=== PATIENT | female | born 1950 | race Caucasian/White ===

== ENCOUNTER 2018-05-21 06:24 | Inpatient (IN) ==
[2018-05-21] MEDS ORDERED: Albuterol 2.5 MG/3 ML NEBULIZER IH ONE (06:42)
[2018-05-21 07:13] LABS: Basophils % 0.3 %; Eosinophils # 0.5 K/mcL (0.0-0.6); Eosinophils % 4.3 %; Hematocrit 35.1 % (35.3-44.9); Hemoglobin 10.3 g/dL (11.5-15.4); Immature Granulocytes % 0.8 % (0-4); Lymphocytes # 1.3 K/mcL (0.6-4.6); Lymphocytes % 10.6 %; Mean Corpuscular HGB Conc 29.3 g/dL (31.6-35.5); Mean Corpuscular Hemoglobin 25.6 pg (28.0-33.3); Mean Corpuscular Volume 87.3 fL (83.0-100.0); Monocytes % 8.2 %; Neutrophils # 9.1 K/mcL (1.6-8.9); Platelet Count 312 K/mcL (140-400); Red Blood Count 4.02 M/mcL (3.82-4.97); Red Cell Distribution Width 23.6 % (11.5-14.5); Segmented Neutrophils % 75.8 %
[2018-05-21 07:25] LABS: Calcium 9.7 mg/dL (8.6-10.3); Potassium 3.7 mEq/L (3.5-5.1)
[2018-05-21 07:32] LABS: Troponin I 0.08 ng/mL (< 0.04)
--- NOTE | 2018-05-21 07:42 | Emergency Department Note ---
Disposition Clinical Impression: Acute on chronic renal insufficiency, Acute electrocardiography changes, Elevated troponin Congestive heart failure Qualifiers: Heart failure type: unspecified Heart failure chronicity: acute Qualified Code(s): I50.9 - Heart failure, unspecified Community acquired pneumonia Qualifiers: Laterality: unspecified laterality Qualified Code(s): J18.9 - Pneumonia, unspecified organism Disposition: Admitted As Inpatient Condition: Fair SOB HPI - General Stated Complaint: yoni, pneumonia Time Seen by Provider: 05/21/18 06:33 Source: patient, family Limitations: no limitations Nursing Notes Reviewed: Yes Vital Signs Reviewed: Yes - History of Present Illness 68-year-old female with history of hypertension, CHF, diabetes, bilateral BKA presents from home with her son for evaluation of worsening dyspnea. She was recently diagnosed with ammonia by her primary care provider and was given a prescription for Zithromax. She has taken this for three days, but has not improved. She has mild chest discomfort when she coughs, otherwise, no chest pain. She feels "a little short of breath at rest." She has had recent lower extremity edema. However, states that her doctor gave her Lasix and this is now much better. She denies fever, chills, nausea, vomiting, hemoptysis, syncope, dizziness, headache. Cough is sometimes productive of a "very small amount of clear sputum." Pt Subjective Complaint: shortness of breath, cough Onset (ago): week(s) Context: recent illness Severity: moderate Consistency/Duration: gradually worsening Improves with: nothing Worsens with: coughing Known history of: congestive heart failure, diabetes Associated symptoms: Reports: cough, sputum production. Denies: pain with inspiration, fever, wheezing, orthopnea, lower extremity pain, polyuria, polydipsia, parasthesias, palpitations, hemoptysis, diaphoresis, nausea/vomiting, syncope, abdominal pain, rash, sense of impending doom Treatment prior to arrival: other (abx) Cough present: Yes Cough Description: Voluntary, Involuntary, Productive, Weak Cough Frequency: Intermittent Sputum production: Yes Sputum Amount: Scant Sputum Color: Clear - Related Data Home oxygen amount: none Home Medications Medication Instructions Recorded Confirmed Amitriptyline [Elavil] 25 mg PO HS 05/21/18 05/21/18 Aspirin [Lo-Dose Aspirin EC] 81 mg PO DAILY 05/21/18 05/21/18 Atorvastatin Calcium [Lipitor] 80 mg PO HS 05/21/18 05/21/18 Citalopram [CeleXA] 20 mg PO DAILY 05/21/18 05/21/18 Clopidogrel [Plavix] 75 mg PO DAILY 05/21/18 05/21/18 Collagenase Oint [Santyl] 1 appl TP DAILY 05/21/18 05/21/18 Ergocalciferol (VITAMIN D2) 50,000 unit PO QWEEK 05/21/18 05/21/18 [Vitamin D2] Famotidine [Pepcid] 20 mg PO BID 05/21/18 05/21/18 Ferrous Sulfate [Iron] 325 mg PO DAILY 05/21/18 05/21/18 Furosemide [Lasix] 40 mg PO DAILY 05/21/18 05/21/18 Gabapentin [Neurontin] 300 mg PO DAILY 05/21/18 05/21/18 Gemfibrozil [Lopid] 600 mg PO BIDWM 05/21/18 05/21/18 Gentamicin Oint [Garamycin] 1 appl TP DAILY 05/21/18 05/21/18 Insulin ASPART [NovoLOG] 20 unit SQ TIDWM MDD PER SLIDING 05/21/18 05/21/18 SCALE Insulin Glargine,Hum.rec.anlog 80 unit SQ DAILY 05/21/18 05/21/18 [Basaglar Kwikpen U-100] Linagliptin [Tradjenta] 5 mg PO DAILY 05/21/18 05/21/18 Metoprolol [Lopressor] 100 mg PO BID 05/21/18 05/21/18 Potassium Chloride [K-Tab ER] 10 meq PO BID 05/21/18 05/21/18 levoFLOXacin [Levaquin] 250 mg PO DAILY 05/21/18 05/21/18 Allergies Allergy/AdvReac Type Severity Reaction Status Date / Time Sulfa (Sulfonamide Allergy Unknown Unknown Verified 05/14/15 18:03 Antibiotics) acetaminophen [From Tylenol] Allergy Chest Pain Verified 05/14/15 18:03 codeine Allergy Chest Pain Verified 04/15/15 09:57 All systems ED: reviewed and negative except as stated. Review of Systems: As Per HPI Constitutional: Denies: fever, chills, weakness, weight change, night sweats Eyes: Denies: vision change ENT ED: Denies: ear pain, throat pain, congestion, dysphagia Cardiovascular: Reports: as per HPI, chest pain ("Only when coughing."). Denies: palpitations, dyspnea on exertion, orthopnea, edema, syncope Respiratory: Reports: as per HPI, cough, dyspnea, sputum production. Denies: wheezes, hemoptysis, stridor Gastrointestinal: Denies: abdominal pain, nausea, vomiting, diarrhea, constipation Genitourinary: Denies: dysuria Musculoskeletal: Denies: back pain, neck pain, joint swelling, arthralgia Integumentary: Denies: rash Neurological: Denies: headache, weakness, numbness, paresthesias, confusion, vertigo Psychiatric: Denies: anxiety Endocrine: Denies: fatigue Hematological/Lymphatic: Denies: easy bleeding, easy bruising, lymphadenopathy Past Medical History - Past Medical History Attestation: Yes The following information was validated with the patient. Source: patient Medical history: Reports: asthma, CHF, coronary artery disease, diabetes, GERD, hyperlipidemia, hypertension, renal disease Surgical history: Reports: carotid endarterectomy, coronary bypass (CABG), orthopedic, other, other (Is) Psychiatric history: Reports: depression [employer] OPERATOR history: Reports: no [employer] OPERATOR history - Social History Smoking Status: Never smoker Smokeless Tobacco Status: No Alcohol use: Reports: none Drug use: Reports: none Physical Exam - General Limitations: no limitations General appearance: alert, in no apparent distress - Head Head exam: atraumatic, normocephalic, normal inspection - Eye Eye exam: Present: normal appearance. Absent: scleral icterus, conjunctival injection, periorbital swelling - ENT ENT exam: mucous membranes dry ( is worseas per ) - Neck Neck exam: Present: normal inspection (Assessment and I am unable to see the microscopic analysis of UA.) - Respiratory Respiratory exam: Present: wheezes (faint end expiratory). Absent: respiratory distress, stridor - Cardiovascular Cardiovascular exam: Present: regular rate, normal rhythm (Any secondhand) - Abdominal Exam Abdominal exam: Present: soft, Non-Tender. Absent: distention, guarding, rigidity, mass - Extremities Exam Extremities exam: Present: normal capillary refill, other (Bilateral BKA - no edema noted - wound with clean dry dressing on left stump). Absent: joint swelling - Expanded Lower Extremity Exam Hip/Pelvis exam: Present: full ROM Upper leg exam: Present: normal inspection. Absent: tenderness Knee exam: Present: normal inspection, full ROM. Absent: tenderness, swelling Lower leg exam: Present: tenderness (left stump - mild). Absent: swelling, ecchymosis, deformity, erythema Neurovascular/Tendon exam: Present: normal capillary refill. Absent: motor deficit, sensory deficit, extremity cold to touch, pallor - Back Exam Back exam: Present: normal inspection. Absent: tenderness - Neurological Exam Neurological exam: Present: alert, oriented X3, CN II-XII intact - Psychiatric Psychiatric exam: Present: normal affect, normal mood - Skin Skin exam: Present: warm, dry, intact, normal color Course Vital Signs Temperature 97.7 F 05/21/18 06:32 Pulse Rate 80 05/21/18 06:32 Respiratory Rate 18 05/21/18 06:32 Blood Pressure 131/82 05/21/18 06:32 O2 Sat by Pulse Oximetry 93 05/21/18 06:32 Temperature 97.7 F 05/21/18 06:32 Pulse Rate 80 05/21/18 06:32 Respiratory Rate 16 05/21/18 06:59 Blood Pressure 131/82 05/21/18 06:32 O2 Sat by Pulse Oximetry 98 05/21/18 07:12 Oxygen Delivery Oxygen Delivery Room Air Shortness of Breath/Dyspnea - Medical Records Medical records reviewed: Yes I reviewed the patient's medical records. - Lab Data Lab results reviewed: Yes I reviewed the patient's lab results. Lab results narrative: Laboratory Last Values WBC 12.0 K/mcL (4.3-11.1) H 05/21/18 06:35 RBC 4.02 M/mcL (3.82-4.97) 05/21/18 06:35 Hgb 10.3 g/dL (11.5-15.4) L 05/21/18 06:35 Hct 35.1 % (35.3-44.9) L 05/21/18 06:35 MCV 87.3 fL (83.0-100.0) 05/21/18 06:35 MCH 25.6 pg (28.0-33.3) L 05/21/18 06:35 MCHC 29.3 g/dL (31.6-35.5) L 05/21/18 06:35 RDW 23.6 % (11.5-14.5) H 05/21/18 06:35 Plt Count 312 K/mcL (140-400) 05/21/18 06:35 MPV 9.0 fL (9.4-12.4) L 05/21/18 06:35 Immature Gran % 0.8 % (0-4) 05/21/18 06:35 Seg Neutrophils % 75.8 % 05/21/18 06:35 Lymphocytes % 10.6 % 05/21/18 06:35 Monocytes % 8.2 % 05/21/18 06:35 Eosinophils % 4.3 % 05/21/18 06:35 Basophils % 0.3 % 05/21/18 06:35 Neutrophils # 9.1 K/mcL (1.6-8.9) H 05/21/18 06:35 Lymphocytes # 1.3 K/mcL (0.6-4.6) 05/21/18 06:35 Monocytes # 1.0 K/mcL (0.0-1.3) 05/21/18 06:35 Eosinophils # 0.5 K/mcL (0.0-0.6) 05/21/18 06:35 Basophils # 0.0 K/mcL (0.0-0.2) 05/21/18 06:35 Platelet Estimate Normal (Normal) 05/21/18 06:35 Poikilocytosis 1+ (Not Present) A 05/21/18 06:35 Anisocytosis 2+ (Not Present) A 05/21/18 06:35 Sodium 140 mEq/L (136-145) 05/21/18 06:35 Potassium 3.7 mEq/L (3.5-5.1) 05/21/18 06:35 Chloride 105 mEq/L (98-107) 05/21/18 06:35 Carbon Dioxide 25 mEq/L (23-29) 05/21/18 06:35 BUN 31 mg/dL (8-23) H 05/21/18 06:35 Creatinine 1.75 mg/dL (0.60-1.20) H 05/21/18 06:35 Est GFR ( Amer) 35 (> 60) L 05/21/18 06:35 Est GFR (Non-Af Amer) 29 (> 60) L 10/31/18 06:35 BUN/Creatinine Ratio 18 (6-26) 05/21/18 06:35 Glucose 121 mg/dL (70-105) H 05/21/18 06:35 Calculated Osmolality 298 (280-300) 05/21/18 06:35 Lactic Acid 1.0 mmol/L (0.5-2.2) 05/21/18 06:35 Calcium 9.7 mg/dL (8.6-10.3) 05/21/18 06:35 Troponin I 0.08 ng/mL (< 0.04) H* 05/21/18 06:35 B-Natriuretic Peptide 2738 pg/mL (Less than 100) H 05/21/18 06:35 Result diagrams: 05/21/18 06:35 05/21/18 06:35 Lab Results 05/21/18 05/21/18 05/21/18 Range/Units 06:35 06:35 06:35 WBC 12.0 H (4.3-11.1) K/mcL RBC 4.02 (3.82-4.97) M/mcL Hgb 10.3 L (11.5-15.4) g/dL Hct 35.1 L (35.3-44.9) % MCV 87.3 (83.0-100.0) fL MCH 25.6 L (28.0-33.3) pg MCHC 29.3 L (31.6-35.5) g/dL RDW 23.6 H (11.5-14.5) % Plt Count 312 (140-400) K/mcL MPV 9.0 L (9.4-12.4) fL Immature Gran % 0.8 (0-4) % Seg Neutrophils % 75.8 % Lymphocytes % 10.6 % Monocytes % 8.2 % Eosinophils % 4.3 % Basophils % 0.3 % Neutrophils # 9.1 H (1.6-8.9) K/mcL Lymphocytes # 1.3 (0.6-4.6) K/mcL Monocytes # 1.0 (0.0-1.3) K/mcL Eosinophils # 0.5 (0.0-0.6) K/mcL Basophils # 0.0 (0.0-0.2) K/mcL Platelet Estimate Normal (Normal) Poikilocytosis 1+ A (Not Present) Anisocytosis 2+ A (Not Present) Sodium 140 (136-145) mEq/L Potassium 3.7 (3.5-5.1) mEq/L Chloride 105 (98-107) mEq/L Carbon Dioxide 25 (23-29) mEq/L BUN 31 H (8-23) mg/dL Creatinine 1.75 H (0.60-1.20) mg/dL Est GFR ( Amer) 35 L (> 60) Est GFR (Non-Af Amer) 29 L (> 60) BUN/Creatinine Ratio 18 (6-26) Glucose 121 H (70-105) mg/dL Calculated Osmolality 298 (280-300) Lactic Acid 1.0 (0.5-2.2) mmol/L Calcium 9.7 (8.6-10.3) mg/dL Troponin I 0.08 H* (< 0.04) ng/mL B-Natriuretic Peptide (Less than 100) pg/mL 05/21/18 Range/Units 06:35 WBC (4.3-11.1) K/mcL RBC (3.82-4.97) M/mcL Hgb (11.5-15.4) g/dL Hct (35.3-44.9) % MCV (83.0-100.0) fL MCH (28.0-33.3) pg MCHC (31.6-35.5) g/dL RDW (11.5-14.5) % Plt Count (140-400) K/mcL MPV (9.4-12.4) fL Immature Gran % (0-4) % Seg Neutrophils % % Lymphocytes % % Monocytes % % Eosinophils % % Basophils % % Neutrophils # (1.6-8.9) K/mcL Lymphocytes # (0.6-4.6) K/mcL Monocytes # (0.0-1.3) K/mcL Eosinophils # (0.0-0.6) K/mcL Basophils # (0.0-0.2) K/mcL Platelet Estimate (Normal) Poikilocytosis (Not Present) Anisocytosis (Not Present) Sodium (136-145) mEq/L Potassium (3.5-5.1) mEq/L Chloride (98-107) mEq/L Carbon Dioxide (23-29) mEq/L BUN (8-23) mg/dL Creatinine (0.60-1.20) mg/dL Est GFR ( Amer) (> 60) Est GFR (Non-Af Amer) (> 60) BUN/Creatinine Ratio (6-26) Glucose (70-105) mg/dL Calculated Osmolality (280-300) Lactic Acid (0.5-2.2) mmol/L Calcium (8.6-10.3) mg/dL Troponin I (< 0.04) ng/mL B-Natriuretic Peptide 2738 H (Less than 100) pg/mL - Radiology Data Radiology results reviewed: Yes I reviewed the patient's radiology results. Chest X-Ray 05/21/18 06:35 IMPRESSION: Mild streaky bibasilar opacities along with slight blunting of left costophrenic angle concerning for mild bibasilar atelectasis or infiltrates along with small left pleural effusion. Cardiomegaly. D/ : / 05/21/2018 08:40:59 Alok Colorado MD / kera Interpreting Provider: Alok Colorado MD - EKG Data EKG attestation: Yes I reviewed and interpreted this EKG. EKG shows normal: Reports: sinus rhythm Rate: Reports: normal Rhythm: Reports: NSR [place]/QRS: Reports: IVCD T wave inversions noted in: Reports: I, II, aVL, v4, v5, v6 When compared to previous EKG there are: changes noted Interpretation: Reports: nonspecific ST-T wave changes Attestation Statement - Attestation Attestation: I, [place] Andrea, examined this patient and my medical decision-making was reviewed with the [employer]/PA/Advanced Practice Nurse/Resident Physician. I agree with the documented findings, disposition and treatment plan as described except to the extent set forth below. 68-year-old female presents emergency Department with concerns of cough and shortness of breath. Patient states she was recently diagnosed with pneumonia and has been taking his erythromycin at home without improvement of her symptoms. She does have a cough that is nonproductive. She denies fever, chills, nausea, vomiting, chest pain. Patient has a history of congestive heart failure and takes Lasix as needed. She has been increasing her usage of Lasix over the past week. On evaluation emergency Department she has crackles in the bilateral lower lobes posteriorly. Chest x-ray shows venous congestion, atelectasis versus infiltrate. She has mildly elevated white blood cell count. She is afebrile emergency department. Likely the patient's symptoms are secondary to congestive heart failure with BNP greater than 2000 however it is difficult to rule out pneumonia as she is currently taking antibiotics. Patient will be admitted to the hospitalist for further care and evaluation.
[2018-05-21 08:14] LABS: Anisocytosis 2+ (Not Present); Platelet Estimate Normal (Normal)
[2018-05-21 08:16] LABS: Poikilocytosis 1+ (Not Present)
[2018-05-21] MEDS ORDERED: Furosemide 40 MG/4 ML VIAL IVP ONE (08:38)
[2018-05-21 08:57] LABS: Bilirubin,Urine Negative (Negative); Blood,Urine Small (Negative); Clarity,Urine Clear (Clear); Color,Urine Yellow (Yellow); Glucose,Urine (UA) Normal (Normal); Ketones,Urine Negative (Negative); Leukocyte Esterase,Urine Negative (Negative); Nitrite,Urine Negative (Negative); Protein,Urine 100 mg/dL (Neg-Trace); Specific Gravity,Urine 1.015 (1.010-1.025); Urobilinogen,Urine Normal (Normal)
[2018-05-21 09:00] LABS: Bacteria,Urine None Seen per hpf (None-Few); Hyaline Casts,Urine None Seen per lpf (None-Few); RBC,Urine 0-3 per hpf (0-3); Squamous Epithelial Cell,Urine Many per lpf (None-Few); WBC,Urine 0-3 per hpf (0-3)
[2018-05-21] MEDS ORDERED: Azithromycin 500 MG in D5% in Water 250 ML IVPB ONE (09:46)
[2018-05-21] MEDS ORDERED: cefTRIAXone 1,000 MG in 0.9 % Sodium Chloride Mini Bag 100 ML IVPB ONE (09:46)
[2018-05-21] MEDS ORDERED: Aspirin 325 MG TABLET PO ONE (09:50)
[2018-05-21] MEDS ORDERED: cefTRIAXone 1,000 MG in Water for inj. (sterile) 20 ML 10 ML IVP ONE (11:00)
[2018-05-21] MEDS ORDERED: Naloxone 0.4 MG/ML INJ IVP PRN (11:23)
--- NOTE | 2018-05-21 11:34 | Internal Med History&Physical ---
Date of Encounter: 05/21/18 Time of Encounter: 11:31 Internal Medicine - H&P: HPI Chief complaint: shortness of breath and cough Admitted From: Home Plans for Post Hospital Care: Home History of present illness: Ms. Barba is a 68 year old female with past medical history of hypertension, CHF, diabetes, bilateral BKA, coronary artery disease status post CABG, nephrectomy, CKD, came in with complain of shortness of breath for past 2-3 days ongoing for about a week. History was obtained from patient, ER physician and patient's son. Patient was diagnosed to have pneumonia by PCP and was started on antibiotic treatment which patient has not completed yet. Given her shortness of breath and cough did not result patient decided to come to the ER. Patient was also started on Lasix for lower extremity swelling which has improved as per patient. Patient denies any fevers, chills, nausea, constipation, diarrhea, lightheadedness, dizziness, headache, urinary complaints. Her cough is mainly water bothering her associated minimal expectoration. Denies any chest pain back pain abdominal pain. Minimal chest discomfort associated with coughing. On interview patient cooperated well mentioned history. In no distress. Breathing has improved significantly. Saturating well on 2 L nasal cannula. Denies any chest pain or abdominal pain. Patient was started on ceftriaxone and azithromycin for pneumonia and received 1 dose of Lasix in ER. Patient had mild elevated troponin and admission was requested for CHF. Past Med Surg Social Fam HX - Past Medical History Medical history: asthma, CHF, coronary artery disease, diabetes, GERD, hyperl ipidemia, hypertension, renal disease Psychiatric history: depression - Past Surgical History Surgical History: carotid endarterectomy, coronary bypass (CABG), orthopedic, other, other (Is) Additional surgical history: b/l bka, cardiac cath - Social History Smoking Status: Never smoker Smokeless Tobacco Status: No Alcohol use: none Drug use: none - Family History Mother Hx Family Cardiac Disorders: Yes (heart disease) - Additional Family History Additional family history: Father had DC at unknown age, Mother did not have significant medical problems. Internal Medicine - H&P: Meds Amitriptyline [Elavil] 25 mg PO HS 05/21/18 [History] Aspirin [Lo-Dose Aspirin EC] 81 mg PO DAILY 05/21/18 [History] Atorvastatin Calcium [Lipitor] 80 mg PO HS 05/21/18 [History] Citalopram [CeleXA] 20 mg PO DAILY 05/21/18 [History] Clopidogrel [Plavix] 75 mg PO DAILY 05/21/18 [History] Collagenase Oint [Santyl] 1 appl TP DAILY 05/21/18 [History] Ergocalciferol (VITAMIN D2) [Vitamin D2] 50,000 unit PO QWEEK 05/21/18 [History] Famotidine [Pepcid] 20 mg PO BID 05/21/18 [History] Ferrous Sulfate [Iron] 325 mg PO DAILY 05/21/18 [History] Furosemide [Lasix] 40 mg PO DAILY 05/21/18 [History] Gabapentin [Neurontin] 300 mg PO DAILY 05/21/18 [History] Gemfibrozil [Lopid] 600 mg PO BIDWM 05/21/18 [History] Gentamicin Oint [Garamycin] 1 appl TP DAILY 05/21/18 [History] Insulin ASPART [NovoLOG] 20 unit SQ TIDWM MDD PER SLIDING SCALE 05/21/18 [History] Insulin Glargine,Hum.rec.anlog [Basaglar Kwikpen U-100] 80 unit SQ DAILY 05/21/18 [History] Linagliptin [Tradjenta] 5 mg PO DAILY 05/21/18 [History] Metoprolol [Lopressor] 100 mg PO BID 05/21/18 [History] Potassium Chloride [K-Tab ER] 10 meq PO BID 05/21/18 [History] levoFLOXacin [Levaquin] 250 mg PO DAILY 05/21/18 [History] Allergy/AdvReac Type Severity Reaction Status Date / Time Sulfa (Sulfonamide Allergy Unknown Unknown Verified 05/14/15 18:03 Antibiotics) acetaminophen [From Tylenol] Allergy Chest Pain Verified 05/14/15 18:03 codeine Allergy Chest Pain Verified 04/15/15 09:57 All Systems PM: A 10-system review of systems was performed and is negative for pertinent findings except as documented above in the HPI. - Constitutional Vitals: Temp Pulse Resp BP Pulse Ox 97.7 F 79 18 132/66 95 05/21/18 06:32 05/21/18 10:32 05/21/18 10:32 05/21/18 10:00 05/21/18 10:32 General appearance: Present: A&O X 3, no acute distress Exam: Constitutional: Vitals as noted. Conversant. No Apparent Distress. Eyes : Sclera white, conjunctiva clear, no lid lag, PEAR[place]. ENT : Grossly normal hearing. Oropharyngeal exam unremarkable. Moist mucus membranes. Respiratory : Bibasilar crackles. No accessory muscle use, rales, rhonchi or wheezes Cardiovascular : RRR, +S1, +S2. no murmur, gallop, rubs. No chest wall tenderness. !+ pedal edema GI/Abdominal : Soft, Non-tender, Non-distended, normal bowel sounds, soft, no peritoneal signs. no orgenomegaly or mass appreciated. no hernia. Musculoskeletal: bilateral BKA Neurological: AO X3, CN II-XII grossly intact, grossly normal motor and sensory exam. Skin: Ulcer noted 1x1cm clean base on Lt stump Internal Med - H&P Results - Labs CBC & Chem 7: 05/21/18 06:35 05/21/18 06:35 Labs: Short CBC 05/21/18 Range/Units 06:35 WBC 12.0 H (4.3-11.1) K/mcL Hgb 10.3 L (11.5-15.4) g/dL Hct 35.1 L (35.3-44.9) % Plt Count 312 (140-400) K/mcL Neutrophils # 9.1 H (1.6-8.9) K/mcL BMP 05/21/18 06:35 Sodium 140 Potassium 3.7 Chloride 105 Carbon Dioxide 25 BUN 31 H Creatinine 1.75 H Glucose 121 H Calcium 9.7 Cardiac Enzymes 05/21/18 Range/Units 06:35 Troponin I 0.08 H* (< 0.04) ng/mL Urine 05/21/18 Range/Units 07:57 Urine Color Yellow (Yellow) Urine Clarity Clear (Clear) Urine pH 6.0 (5.0-8.0) pH Units Ur Specific [place] 1.015 (1.010-1.025) Urine Protein 100 H (Neg-Trace) mg/dL Urine Glucose (UA) Normal (Normal) mg/dL - Impressions ITS Impressions Chest X-Ray 05/21/18 06:35 IMPRESSION: Mild streaky bibasilar opacities along with slight blunting of left costophrenic angle concerning for mild bibasilar atelectasis or infiltrates along with small left pleural effusion. Cardiomegaly. D/ / 05/21/2018 08:40:59 Alok Colorado MD / kera Interpreting Provider: Alok Colorado MD - Assessment and plan (1) CHF exacerbation Current Visit: Yes Status: Acute Assessment and plan: - Continue home aspirin, statin, beta joy - Unclear reason for exacerbation - We will continue diuresis with Lasix 40 daily - Measure ins and outs and weights daily. - No echocardiogram report available. Unknown when had last echocardiogram - Follow-up echocardiogram Qualifiers: Qualified Code(s): I50.9 - Heart failure, unspecified (2) Elevated troponin I level Current Visit: Yes Status: Acute Assessment and plan: - Possibly related to CHF exacerbation along with her renal function - EKG with ST depression in lead 2 and T-wave inversion in lead 2, aVF, V4 and V5. IVCD was noted. Last EKG from 2014 without check changes. - Patient without chest pain. - We will trend troponin and opted echocardiogram (3) Anemia Current Visit: Yes Status: Acute Assessment and plan: - Last hemoglobin of 13 from 2016. Currently 10 - Patient on iron supplementation for possible iron deficiency anemia and CK 80 - Without any obvious signs of GI bleed - Obtain iron panel, stool occult - Does not appear to be acute drop. - We will monitor for now Qualifiers: Anemia type: unspecified type Qualified Code(s): D64.9 - Anemia, unspecified (4) CKD (chronic kidney disease) stage 3, GFR 30-59 ml/min Current Visit: No Status: Acute Assessment and plan: - Minimally worsened compared to baseline - Possibly from CHF - Continue diuresis and monitor (5) Diabetes Current Visit: No Status: Acute Assessment and plan: - Accu-Cheks before meals at bedtime and sliding scale insulin - We will decrease the dose of long-acting insulin. We will use Levemir 40 at bedtime. We will adjust based on sugar readings. Qualifiers: Diabetes mellitus type: type 2 Diabetes mellitus complication status: with circulatory complication Diabetes mellitus complication detail: with other circulatory complications Qualified Code(s): E11.59 - Type 2 diabetes mellitus with other circulatory complications; Z79.4 - halfway (current) use of insulin (6) Shortness of breath Current Visit: Yes Status: Acute Assessment and plan: - Appears to be more related to CHF - Minimal elevated white count - We will finish short course of ceftriaxone and Zithromax for possible pneumonia. - Time Spent With Patient Total time spent is greater than 50% in coordination of care (as documented) at patient's floor/unit and/or counseling patient:
[2018-05-21] MEDS ORDERED: D5% in Water 1,000 ML IVC PRN (12:25)
[2018-05-21] MEDS ORDERED: *HR* Dextrose 50 % in Water (Syg) 50 ML SYRINGE IVP PRN (12:25)
[2018-05-21] MEDS ORDERED: Dextrose Gel 15 GM/37.5 ML TUBE PO PRN ×2 (12:25)
[2018-05-21] MEDS: Cholecalciferol (D-3) 1,000 UNIT TABLET PO SCH (16:27)
[2018-05-21] MEDS ORDERED: Famotidine 20 MG TABLET PO SCH (16:30)
[2018-05-21] MEDS: Famotidine 20 MG TABLET PO SCH (17:07)
[2018-05-21] MEDS: Insulin LISPRO 300 UNITS/3 ML VIAL SQ SCH (17:09)
[2018-05-21 17:27] LABS: Basophils % 0.3 %; Eosinophils # 0.5 K/mcL (0.0-0.6); Eosinophils % 5.1 %; Hematocrit 34.5 % (35.3-44.9); Hemoglobin 10.3 g/dL (11.5-15.4); Immature Granulocytes % 0.9 % (0-4); Lymphocytes # 1.1 K/mcL (0.6-4.6); Lymphocytes % 11.5 %; Mean Corpuscular HGB Conc 29.9 g/dL (31.6-35.5); Mean Corpuscular Hemoglobin 25.7 pg (28.0-33.3); Mean Platelet Volume 8.8 fL (9.4-12.4); Monocytes # 0.8 K/mcL (0.0-1.3); Monocytes % 8.4 %; Neutrophils # 6.8 K/mcL (1.6-8.9); Platelet Count 280 K/mcL (140-400); Red Blood Count 4.01 M/mcL (3.82-4.97); Red Cell Distribution Width 23.1 % (11.5-14.5); Segmented Neutrophils % 73.8 %
[2018-05-21 18:04] LABS: Anisocytosis 2+ (Not Present); Platelet Estimate Normal (Normal); Polychromasia 1+ (Not Present)
[2018-05-21] MEDS: Insulin DETEMIR 100 UNIT/ML X5UNITS SQ SCH (21:15)
[2018-05-21] MEDS: Metoprolol 100 MG TABLET PO SCH (21:15)
[2018-05-21] MEDS: Gentamicin Oint 15 GM TUBE TP SCH (21:16)
[2018-05-22 05:24] LABS: Calcium 9.2 mg/dL (8.6-10.3); Potassium 3.6 mEq/L (3.5-5.1)
[2018-05-22 05:25] LABS: % Iron Saturation 7 % (15-50); Iron 28 mcg/dL (50-170); Transferrin 297 mg/dL (203-362)
[2018-05-22 05:43] LABS: Ferritin 31 ng/mL (10-120)
[2018-05-22] MEDS: Cholecalciferol (D-3) 1,000 UNIT TABLET PO SCH (08:44)
[2018-05-22] MEDS: Metoprolol 100 MG TABLET PO SCH ×2 (08:44→20:29)
[2018-05-22] MEDS: Famotidine 20 MG TABLET PO SCH ×2 (08:45→18:02)
[2018-05-22] MEDS: Aspirin Enteric Coated 81 MG Tablet PO SCH (08:45)
[2018-05-22] MEDS: Furosemide 40 MG/4 ML VIAL IVP SCH (08:45)
[2018-05-22] MEDS: Gabapentin 300 MG CAPSULE PO SCH (08:45)
[2018-05-22] MEDS: Insulin LISPRO 300 UNITS/3 ML VIAL SQ SCH ×3 (09:24→18:02)
--- NOTE | 2018-05-22 09:43 | Internal Med Progress Note ---
Hospitalist Progress Note - Encounter Date of Encounter: 05/22/18 Time of Encounter: 09:42 - Subjective Interval History: Patient seen and examined this morning. No acute overnight events. Breathing improved. Denies cp, abdominal pain, back pain, bowel or urinary complains. No fever, chills, Diarrhea. - Exam Vitals: Temp Pulse Resp BP Pulse Ox 98.2 F 75 20 127/69 95 05/22/18 02:30 05/22/18 08:41 05/22/18 08:41 05/22/18 08:41 05/22/18 08:41 Exam: Constitutional: Vitals as noted. Conversant. No Apparent Distress. Eyes : Sclera white, conjunctiva clear, no lid lag, PEARLA. ENT : Grossly normal hearing. Oropharyngeal exam unremarkable. Moist mucus membranes. Respiratory : Bibasilar crackles. No accessory muscle use, rales, rhonchi or wheezes Cardiovascular : RRR, +S1, +S2. no murmur, gallop, rubs. No chest wall tenderness. 1+ pedal edema GI/Abdominal : Soft, Non-tender, Non-distended, normal bowel sounds, soft, no peritoneal signs. no orgenomegaly or mass appreciated. no hernia. Musculoskeletal: bilateral BKA Neurological: AO X3, CN II-XII grossly intact, grossly normal motor and sensory exam. Skin: Ulcer noted 1x1cm clean base on Lt stump - Assessment and Plan (1) CHF exacerbation Current Visit: Yes Status: Acute (2) Elevated troponin I level Current Visit: Yes Status: Acute (3) Anemia Current Visit: Yes Status: Acute (4) CKD (chronic kidney disease) stage 3, GFR 30-59 ml/min Current Visit: No Status: Acute (5) Diabetes Current Visit: No Status: Acute (6) Shortness of breath Current Visit: Yes Status: Acute - Summary of Assessment and Plan Summary of Assessment and Plan: Shortness of breath - Appears to be more related to CHF - Minimal elevated white count on admission - We will finish short course of ceftriaxone and Zithromax for possible pneumonia which was started outpaient CHF exacerbation - Continue home aspirin, statin, beta joy - c/w diuresis with Lasix 40 daily - I/O not charted appropriately - Follow-up echocardiogram Elevated troponin I level with abnormal EKG - Possibly related to CHF exacerbation along with her renal function - EKG with ST depression in lead 2 and T-wave inversion in lead 2, aVF, V4 and V5. IVCD was noted. Last EKG from 2014 without check changes. - troponin from 0.08 to 0.18 today. Patient without chest pain. - f/u echocardiogram - Will consult cardiology Anemia - Iron panel consistent with Iron deficiency - Possible combination with CKD - f/u stool occult - Monitor for now - c/w iron supplementation CKD - Minimally worsened on admission compared to baseline - Possibly from CHF - Improved with diuresis. Diabetes - Accu-Cheks before meals at bedtime and sliding scale insulin - Well controlled on current regimen. continue same - Time Spent with Patient Total time spent is greater than 50% in coordination of care (as documented) at patient's floor/unit and/or counseling patient: Internal Medicine: Result - Labs CBC & Chem 7: 05/21/18 17:14 05/22/18 04:37 Labs: Short CBC 05/21/18 Range/Units 17:14 WBC 9.2 (4.3-11.1) K/mcL Hgb 10.3 L (11.5-15.4) g/dL Hct 34.5 L (35.3-44.9) % Plt Count 280 (140-400) K/mcL Neutrophils # 6.8 (1.6-8.9) K/mcL BMP 05/22/18 04:37 Sodium 143 Potassium 3.6 Chloride 108 H Carbon Dioxide 21 L BUN 26 H Creatinine 1.56 H Glucose 131 H Calcium 9.2 Cardiac Enzymes 05/21/18 05/22/18 Range/Units 17:14 04:37 Troponin I 0.06 H* 0.18 H* (< 0.04) ng/mL - Impressions Impressions Chest X-Ray 05/21/18 06:35 IMPRESSION: Mild streaky bibasilar opacities along with slight blunting of left costophrenic angle concerning for mild bibasilar atelectasis or infiltrates along with small left pleural effusion. Cardiomegaly. D/ / 05/21/2018 08:40:59 Alok Colorado MD / kera Interpreting Provider: Alok Colorado MD Consult Discharge Plan - Plan Referrals: Rowdy Kramer MD [Primary Care Provider] - _ (1) CHF exacerbation Qualifiers: Qualified Code(s): I50.9 - Heart failure, unspecified (3) Anemia Qualifiers: Anemia type: unspecified type Qualified Code(s): D64.9 - Anemia, unspecified (5) Diabetes Qualifiers: Diabetes mellitus type: type 2 Diabetes mellitus complication status: with circulatory complication Diabetes mellitus complication detail: with other circulatory complications Qualified Code(s): E11.59 - Type 2 diabetes mellitus with other circulatory complications; Z79.4 - halfway (current) use of insulin
[2018-05-22] MEDS: Gentamicin Oint 15 GM TUBE TP SCH (12:34)
--- NOTE | 2018-05-22 14:33 | Cardiology Consult Note ---
<Laura Stuart - Last Filed: 05/22/18 15:00> Date of Encounter: 05/22/18 Time of Encounter: 14:15 Assessment and Plan (1) Elevated troponin I level Current Visit: Yes Status: Acute Elevated troponin in the setting of CAP, CKD. NSTEMI type I vs type II, presentation is not consistent with ACS. Troponin peak 0.27, recheck in AM to ensure downward trend. ECG is similar to prior ([facility] records ). No chest pain reported. TTE demonstrated preserved LVEF, 50% with moderate RV hypokinesis. Hx of CAD s/p CABG s/p PCI, patient reports last PCI ~2 years ago at [facility]. Denies angina. Discussed mgmt options including possible LHC once CAP resolves, however due to increased risk of GIULIANO (CKD, hx of nephrectomy) and lack of chest pain, she declines and elects to proceed with medical therapy. Continue asa, statin, plavix, and BB. Also discussed possible outpatient stress test, however patient declines. No further inpatient testing, will coordinate outpatient follow-up. (2) Coronary artery disease Current Visit: Yes Status: Acute Plan as above. Continue medical therapy including asa, statin, BB, and plavix. Qualifiers: Coronary Disease-Associated Artery/Lesion type: [place] artery [place] vs. transplanted heart: [place] heart Associated angina: without angina Qualified Code(s): I25.10 - Atherosclerotic heart disease of [place] coronary artery without angina pectoris (3) Community acquired pneumonia Current Visit: Yes Status: Acute Mgmt per primary service. Failed outpatient medical therapy. Qualifiers: Laterality: unspecified laterality Qualified Code(s): J18.9 - Pneumonia, unspecified organism Discussion w patient/family: The assessment and plan as outlined above was discussed with the patient and/or family members who expressed understanding and agreement. All questions were answered. Thank you for involving us in the care of your patient. Please call with any questions. The patient will be discussed and reviewed with Dr. Hyatt; changes to be made accordingly. History of Present Illness Consult date: 05/22/18 Requesting physician: David Huang Consult reason: Elevated troponin, abnormal ECG Chief complaint: Shortness of breath History of present illness: Ms. Barba is a 68 year old female with PMHx significant of HTN, dCHF, bilateral BKA's, DMII, nephrectomy, CKD, and CAD s/p CABG s/p PCI who presented to the ED with complaints of worsening shortness of breath, difficulty breathing, and non-productive cough over the past 1-2 weeks. Associated symptoms include bilateral stump edema, which has now resolved. Reports was diagnosed with PNA on CXR by PCP last week and was started on oral antibiotics. Symptoms c ontinued to worsen therefore she went to the ED for further evaluation. She denies cough, fever, or chills. No chest pain/discomfort reported. Denies angina. Cardiology consulted for elevated troponin, 0.06, 0.18, 0.27 and abnormal ECG. Past Med Surg Social Fam HX - Past Medical History Attestation: Yes The following information was validated with the patient. Source: patient Medical history: asthma, CHF, coronary artery disease, diabetes, GERD, hyperlipidemia, hypertension, renal disease Psychiatric history: depression - Past Surgical History Surgical History: carotid endarterectomy, coronary bypass (CABG), orthopedic, other, other (Is) Additional surgical history: b/l bka, cardiac cath - Social History Smoking Status: Never smoker Smokeless Tobacco Status: No Alcohol use: none Drug use: none - Family History Mother Hx Family Cardiac Disorders: Yes (heart disease) Medications and Allergies Amitriptyline [Elavil] 25 mg PO HS 05/21/18 [History] Aspirin [Lo-Dose Aspirin EC] 81 mg PO DAILY 05/21/18 [History] Atorvastatin Calcium [Lipitor] 80 mg PO HS 05/21/18 [History] Citalopram [CeleXA] 20 mg PO DAILY 05/21/18 [History] Clopidogrel [Plavix] 75 mg PO DAILY 05/21/18 [History] Collagenase Oint [Santyl] 1 appl TP DAILY 05/21/18 [History] Ergocalciferol (VITAMIN D2) [Vitamin D2] 50,000 unit PO QWEEK 05/21/18 [History] Famotidine [Pepcid] 20 mg PO BID 05/21/18 [History] Ferrous Sulfate [Iron] 325 mg PO DAILY 05/21/18 [History] Furosemide [Lasix] 40 mg PO DAILY 05/21/18 [History] Gabapentin [Neurontin] 300 mg PO DAILY 05/21/18 [History] Gemfibrozil [Lopid] 600 mg PO BIDWM 05/21/18 [History] Gentamicin Oint [Garamycin] 1 appl TP DAILY 05/21/18 [History] Insulin ASPART [NovoLOG] 20 unit SQ TIDWM MDD PER SLIDING SCALE 05/21/18 [History] Insulin Glargine,Hum.rec.anlog [Basaglar Kwikpen U-100] 80 unit SQ DAILY 05/21/18 [History] Linagliptin [Tradjenta] 5 mg PO DAILY 05/21/18 [History] Metoprolol [Lopressor] 100 mg PO BID 05/21/18 [History] Potassium Chloride [K-Tab ER] 10 meq PO BID 05/21/18 [History] levoFLOXacin [Levaquin] 250 mg PO DAILY 05/21/18 [History] Allergy/AdvReac Type Severity Reaction Status Date / Time Sulfa (Sulfonamide Allergy Unknown Unknown Verified 05/14/15 18:03 Antibiotics) acetaminophen [From Tylenol] Allergy Chest Pain Verified 05/22/18 11:46 codeine Allergy Chest Pain Verified 04/15/15 09:57 All Systems Review: The remainder of the systems were reviewed and are negative - Cardiovascular Cardiovascular: as per HPI Physical Examination Vital Signs, Last 4 Hours Temp Pulse Resp BP Pulse Ox 05/22/18 11:59 97.8 F 69 18 147/62 98 General: Conversant, No Apparent Distress, Other (frequent, non-productive cough) HEENT: Atraumatic, Normocephaly Cardiac: Reg Rate and Rhythm, Normal S1 and S2 Lungs: Other (Rales ) Neuro: Alert and responsive Abdomen: Soft (large, obese) Skin: No rashes noted on visualized skin Musculoskeletal: No Chest Wall Tenderness Extremities: Other (bilateral BKA, no edema. L stump wrapped due to open sore. ) Results 05/21/18 17:14 05/22/18 04:37 Lab Results 05/21/18 05/21/18 05/22/18 17:14 17:14 04:37 WBC 9.2 Hgb 10.3 L Hct 34.5 L Plt Count 280 Sodium 143 Potassium 3.6 Chloride 108 H Carbon Dioxide 21 L BUN 26 H Creatinine 1.56 H Glucose 131 H Calcium 9.2 Troponin I 0.06 H* 05/22/18 05/22/18 04:37 10:31 WBC Hgb Hct Plt Count Sodium Potassium Chloride Carbon Dioxide BUN Creatinine Glucose Calcium Troponin I 0.18 H* 0.27 H* Active Medications Acetaminophen (Tylenol) 500 mg PO Q6HR PRN PRN Reason: Pain Stop: 11/21/18 11:24 Last Admin: 05/22/18 12:33 Dose: 500 mg Amitriptyline HCl (Elavil) 25 mg PO HS [facility] Stop: 11/20/18 21:01 Last Admin: 05/21/18 21:15 Dose: 25 mg Aspirin (Aspirin Ec) 81 mg PO DAILY [facility] Stop: 11/21/18 09:01 Last Admin: 05/22/18 08:45 Dose: 81 mg Atorvastatin Calcium (Lipitor) 80 mg PO HS [facility] Stop: 11/20/18 21:01 Last Admin: 05/21/18 21:15 Dose: 80 mg Citalopram Hydrobromide (Celexa) 20 mg PO DAILY [facility] Stop: 11/21/18 09:01 Last Admin: 05/22/18 08:45 Dose: 20 mg Clopidogrel Bisulfate (Plavix) 75 mg PO DAILY [facility] Stop: 11/21/18 09:01 Last Admin: 05/22/18 08:45 Dose: 75 mg Collagenase (Santyl) 1 appl TP DAILY [facility] Stop: 11/20/18 17:16 Last Admin: 05/22/18 12:34 Dose: 1 appl Dextrose/Water (Dextrose 50% (Syg)) 25 ml IVP AD PRN PRN Reason: Hypoglycemia Stop: 11/20/18 12:26 Famotidine (Pepcid) 10 mg PO BIDAC [facility]; Protocol Stop: 11/20/18 16:31 Last Admin: 05/22/18 08:45 Dose: 10 mg Ferrous Sulfate (Ferrous Sulfate) 325 mg PO DAILY [facility] Stop: 11/21/18 09:01 Last Admin: 05/22/18 08:45 Dose: 325 mg Furosemide (Lasix) 40 mg IVP DAILY [facility] Stop: 11/21/18 09:01 Last Admin: 05/22/18 08:45 Dose: 40 mg Gabapentin (Neurontin) 300 mg PO DAILY [facility] Stop: 11/21/18 09:01 Last Admin: 05/22/18 08:45 Dose: 300 mg Gemfibrozil (Lopid) 600 mg PO BIDWM [facility] Stop: 11/20/18 17:01 Last Admin: 05/22/18 08:45 Dose: 600 mg Gentamicin Sulfate (Garamycin) 1 appl TP DAILY [facility] Stop: 11/20/18 17:16 Last Admin: 05/22/18 12:34 Dose: 1 appl Glucagon (Glucagen) 1 mg IM ONCE PRN PRN Reason: Hypoglycemia Stop: 11/20/18 12:26 Glucose (Gluctose) 15 gm PO ONCE PRN PRN Reason: Hypoglycemia Stop: 11/20/18 12:26 Glucose (Gluctose) 30 gm PO ONCE PRN PRN Reason: Hypoglycemia Stop: 11/20/18 12:26 Dextrose (Dextrose 5%) 1,000 mls @ 100 mls/hr IVC .Q10H PRN PRN Reason: HYPOGLYCEMIA Stop: 11/20/18 12:26 Insulin Detemir (Levemir) 40 unit SQ HS [facility] Stop: 11/20/18 21:01 Last Admin: 05/21/18 21:15 Dose: 40 unit Insulin Human Lispro (Humalog) 0 units SQ TIDAC [facility]; Protocol Stop: 11/20/18 16:31 Last Admin: 05/22/18 12:32 Dose: Not Given Metoprolol Tartrate (Lopressor) 100 mg PO BID [facility] Stop: 11/20/18 21:01 Last Admin: 05/22/18 08:44 Dose: 100 mg Naloxone HCl (Narcan) 0.4 mg IVP Q2MIN PRN PRN Reason: SEE COMMENTS Stop: 11/20/18 11:24 Vitamin D (Vitamin D) 1,000 unit PO DAILY [facility] Stop: 11/20/18 11:46 Last Admin: 05/22/18 08:44 Dose: 1,000 unit - Imaging and Cardiology Echo: report reviewed Other Results: 12 hour tele: avg HR 74 SR. No events noted. - EKG Interpretation EKG results cardiology: personally reviewed Consult Discharge Plan - Plan Referrals: Rowdy Kramer MD [Primary Care Provider] - <Daniel Hyatt - Last Filed: 05/22/18 18:18> Date of Encounter: 05/22/18 - Attending Attestation Patient was seen and evaluated independently by me. Findings, assessment and p pernell were discussed at length with patient, questions answered. Agree with nurse practitioner's/resident's documentation. Addition as follows, 68 yo CF ho CABG PCI, HFpEF, nephrectomy CKD, B/L BKA, DM. P/w cough 2 wks with dyspnea. No cp, palpitations. NAD, bibasilar crackles. CXR blunting L-CP angle with small L-pleural effusion ECG minimal change c/w , trop to 0.3, BNP 2k, repeated Echo EF 50%, LVH, RV dilation, mod-severe dysfunction, mild MR/PI/, mild PH. A: troponin elevation, type II ADHF, HFrEF, mild fluid overload CAP CAD CKD, nephrectomy P: cycle trop till down trending lasix no LHC plan at this point, c/w ASA/plavix/statin/BB Daniel Hyatt MD, PhD Assessment and Plan Discussion w patient/family: The assessment and plan as outlined above was discussed with the patient and/or family members who expressed understanding and agreement. All questions were answered. Thank you for involving us in the care of your patient. Please call with any questions. History of Present Illness History of present illness: Ms. Barba is a 68 year old female All Systems Review: The remainder of the systems were reviewed and are negative Physical Examination Vital Signs, Last 4 Hours Temp Pulse Resp BP Pulse Ox 05/22/18 16:06 97.7 F 68 18 95/56 96 Results 05/21/18 17:14 05/22/18 04:37 Lab Results 05/22/18 05/22/18 05/22/18 04:37 04:37 10:31 Sodium 143 Potassium 3.6 Chloride 108 H Carbon Dioxide 21 L BUN 26 H Creatinine 1.56 H Glucose 131 H Calcium 9.2 Troponin I 0.18 H* 0.27 H*
[2018-05-22] MEDS: Insulin DETEMIR 100 UNIT/ML X5UNITS SQ SCH (20:39)
--- NOTE | 2018-05-22 21:21 | Electrocardiograph Report ---
[address] [place] [address] Test Date: 2018-05-21 Pat Name: Kitty Barba Department: [id number] Room: 3B55 Gender: F [employer]ating [employer] Operator: : [id number] Requested By: Nini Brannon Order Number: [id number] Reading MD: Daria Macias Measurements Intervals [place] Rate: 81 P: 21 ND: 211 QRS: 88 QRSD: 117 T: 241 QT: 400 QTc: 465 Interpretive Statements Sinus rhythm Nonspecific intraventricular conduction delay Abnormal T, consider ischemia, diffuse leads Electronically Signed On 05-22-2018 21:19:47 EDT by Daria Macias
[2018-05-23 05:02] LABS: Calcium 9.9 mg/dL (8.6-10.3); Potassium 3.7 mEq/L (3.5-5.1)
[2018-05-23] MEDS: Insulin LISPRO 300 UNITS/3 ML VIAL SQ SCH ×2 (08:29→11:53)
[2018-05-23] MEDS: Metoprolol 100 MG TABLET PO SCH (08:39)
[2018-05-23] MEDS: Cholecalciferol (D-3) 1,000 UNIT TABLET PO SCH (08:39)
[2018-05-23] MEDS: Aspirin Enteric Coated 81 MG Tablet PO SCH (08:39)
[2018-05-23] MEDS: Gentamicin Oint 15 GM TUBE TP SCH (08:39)
[2018-05-23] MEDS: Gabapentin 300 MG CAPSULE PO SCH (08:39)
[2018-05-23] MEDS: Famotidine 20 MG TABLET PO SCH (08:39)
[2018-05-23] MEDS: Furosemide 40 MG/4 ML VIAL IVP SCH (08:39)
--- NOTE | 2018-05-23 10:05 | Discharge Summary ---
Orders not resulted at time of discharge: Pending orders 05/21/18 07:14 Culture,Blood [BC] Stat 05/21/18 12:16 Occult Blood,Stool [BF] Routine Date of Encounter: 05/23/18 Time of Encounter: 10:05 - Discharge Diagnosis (1) CHF exacerbation Priority: Primary Status: Acute Qualifiers: Heart failure type: diastolic Qualified Code(s): I50.33 - Acute on chronic diastolic (congestive) heart failure (2) Elevated troponin I level Priority: Primary Status: Acute (3) Anemia Priority: Secondary Status: Acute Qualifiers: Anemia type: unspecified type Qualified Code(s): D64.9 - Anemia, unspecified (4) CKD (chronic kidney disease) stage 3, GFR 30-59 ml/min Priority: Secondary Status: Acute (5) Diabetes Priority: Secondary Status: Acute Qualifiers: Diabetes mellitus type: type 2 Diabetes mellitus complication status: with circulatory complication Diabetes mellitus complication detail: with other circulatory complications Qualified Code(s): E11.59 - Type 2 diabetes mellitus with other circulatory complications; Z79.4 - terminal superintendent (current) use of insulin (6) Shortness of breath Priority: Primary Status: Acute (7) Community acquired pneumonia Priority: Primary Status: Acute Qualifiers: Laterality: unspecified laterality Qualified Code(s): J18.9 - Pneumonia, unspecified organism Hospital course: Ms. Barba is a 68 year old female with past medical history of HTN, CHF, diabetes, coronary artery disease, CK-MB came in complaining of shortness of breath and cough. Was admitted for CHF exacerbation and elevated troponin and BNP of 2700. Patient was started on diuresis with IV Lasix. Patient was treated for community-acquired pneumonia with ceftriaxone and azithromycin. Cardiology was consulted. Echocardiogram showed EF of 50%, diastolic dysfunction, mild LVH. Elevated troponin deemed from demand ischemia with her CKD and COPD. Was discussed option for LHC once CPAP resolved however patient declined given the risk of GIULIANO with CKD. Patient also refused outpatient stress test. Patient wanted to go home given significant improvement in her breathing and negative fluid balance of 1.3 L we will discharge her home. Patient to follow PCP in 1-2 week as well as closely follow-up cardiology as outpatient. Patient would be discharged on Augmentin for 5 days for community acquired pneumonia. Discharge discussed with: patient, nurse, social work - Time Spent with Patient Total time spent providing and/or coordinating discharge services: Greater than 30 minutes (40) - Discharge Medications Prescriptions: Amoxicillin/Clavulanate [Augmentin] 875 mg PO BIDWM 5 Days #10 tablet Home Medications: Amitriptyline [Elavil] 25 mg PO HS 05/21/18 [History] Aspirin [Lo-Dose Aspirin EC] 81 mg PO DAILY 05/21/18 [History] Atorvastatin Calcium [Lipitor] 80 mg PO HS 05/21/18 [History] Citalopram [CeleXA] 20 mg PO DAILY 05/21/18 [History] Clopidogrel [Plavix] 75 mg PO DAILY 05/21/18 [History] Collagenase Oint [Santyl] 1 appl TP DAILY 05/21/18 [History] Ergocalciferol (VITAMIN D2) [Vitamin D2] 50,000 unit PO QWEEK 05/21/18 [History] Famotidine [Pepcid] 20 mg PO BID 05/21/18 [History] Ferrous Sulfate [Iron] 325 mg PO DAILY 05/21/18 [History] Furosemide [Lasix] 40 mg PO DAILY 05/21/18 [History] Gabapentin [Neurontin] 300 mg PO DAILY 05/21/18 [History] Gemfibrozil [Lopid] 600 mg PO BIDWM 05/21/18 [History] Gentamicin Oint [Garamycin] 1 appl TP DAILY 05/21/18 [History] Insulin ASPART [NovoLOG] 20 unit SQ TIDWM MDD PER SLIDING SCALE 05/21/18 [History] Insulin Glargine,Hum.rec.anlog [Basaglar Kwikpen U-100] 80 unit SQ DAILY 05/21/18 [History] Linagliptin [Tradjenta] 5 mg PO DAILY 05/21/18 [History] Metoprolol [Lopressor] 100 mg PO BID 05/21/18 [History] Potassium Chloride [K-Tab ER] 10 meq PO BID 05/21/18 [History] Amoxicillin/Clavulanate [Augmentin] 875 mg PO BIDWM 5 Days #10 tablet 05/23/18 [Rx] Allergies/Adverse Reactions: Allergy/AdvReac Type Severity Reaction Status Date / Time Sulfa (Sulfonamide Allergy Unknown Unknown Verified 05/23/18 08:31 Antibiotics) acetaminophen [From Tylenol] Allergy Chest Pain Verified 05/23/18 08:31 codeine Allergy Chest Pain Verified 05/23/18 08:31 Date of admission: 05/21/18 15:49 Primary care physician: Rowdy Kramer MD Consults: 05/22/18 09:40 Consult to Cardiology [CONS] Routine Comment: Consulting Provider: Cardiology Yanira Reason for Consult: elevated troponin, abnormal EKG Call Completed: Yes 05/22/18 10:48 Consult to Nurse Navigator [CONS] Routine Comment: COPD - Constitutional Vitals: Temp Pulse Resp BP Pulse Ox 98.3 F 78 16 125/63 96 05/23/18 07:39 05/23/18 07:39 05/23/18 07:39 05/23/18 07:39 05/23/18 07:39 General appearance: Present: A&O X 3, no acute distress Exam: Constitutional: Vitals as noted. Conversant. No Apparent Distress. Eyes : Sclera white, conjunctiva clear, no lid lag, PEARLA. ENT : Grossly normal hearing. Oropharyngeal exam unremarkable. Moist mucus membranes. Respiratory : Bibasilar crackles. Improved air entry. No accessory muscle use, rales, rhonchi or wheezes Cardiovascular : RRR, +S1, +S2. no murmur, gallop, rubs. No chest wall tenderness. 1+ pedal edema GI/Abdominal : Soft, Non-tender, Non-distended, normal bowel sounds, soft, no peritoneal signs. no orgenomegaly or mass appreciated. no hernia. Musculoskeletal: bilateral BKA Neurological: AO X3, CN II-XII grossly intact, grossly normal motor and sensory exam. Skin: Lt stump with dressing - Patient Status Disposition: Home Health Service Condition: Fair - Discharge Instructions Instructions: Amoxicillin/Clavulanate Potassium (By mouth), Heart Failure (DC), Heart Failure (GEN), Pneumonia (DC), Pneumonia (GEN) Follow Up With: Rowdy Kramer MD [Primary Care Provider] - 05/28/18 2:15 pm - Diet and Activity Activity: resume usual activities as tolerated
--- NOTE | 2018-05-23 10:32 | Physician Discharge Referral ---
Home Health/Hosp Referral Info Transfer to: Home Health - Diagnosis (1) CHF exacerbation Status: Acute (2) Elevated troponin I level Status: Acute (3) Anemia Status: Acute (4) CKD (chronic kidney disease) stage 3, GFR 30-59 ml/min Status: Acute (5) Diabetes Status: Acute (6) Shortness of breath Status: Acute - Respiratory Orders Smoking Cessation: Smoking cessation has been advised. For more information, call the [place] Tobacco Quit Line at 1-608-CGAC-NOW. - Services Needed Following services are medically necessary services: Home Health Aide - Transfer Medications Prescriptions: Amoxicillin/Clavulanate [Augmentin] 875 mg PO BIDWM 5 Days #10 tablet Home Medications: Amitriptyline [Elavil] 25 mg PO HS 05/21/18 [History] Aspirin [Lo-Dose Aspirin EC] 81 mg PO DAILY 05/21/18 [History] Atorvastatin Calcium [Lipitor] 80 mg PO HS 05/21/18 [History] Citalopram [CeleXA] 20 mg PO DAILY 05/21/18 [History] Clopidogrel [Plavix] 75 mg PO DAILY 05/21/18 [History] Collagenase Oint [Santyl] 1 appl TP DAILY 05/21/18 [History] Ergocalciferol (VITAMIN D2) [Vitamin D2] 50,000 unit PO QWEEK 05/21/18 [History] Famotidine [Pepcid] 20 mg PO BID 05/21/18 [History] Ferrous Sulfate [Iron] 325 mg PO DAILY 05/21/18 [History] Furosemide [Lasix] 40 mg PO DAILY 05/21/18 [History] Gabapentin [Neurontin] 300 mg PO DAILY 05/21/18 [History] Gemfibrozil [Lopid] 600 mg PO BIDWM 05/21/18 [History] Gentamicin Oint [Garamycin] 1 appl TP DAILY 05/21/18 [History] Insulin ASPART [NovoLOG] 20 unit SQ TIDWM MDD PER SLIDING SCALE 05/21/18 [History] Insulin Glargine,Hum.rec.anlog [Basaglar Kwikpen U-100] 80 unit SQ DAILY 05/21/18 [History] Linagliptin [Tradjenta] 5 mg PO DAILY 05/21/18 [History] Metoprolol [Lopressor] 100 mg PO BID 05/21/18 [History] Potassium Chloride [K-Tab ER] 10 meq PO BID 05/21/18 [History] Amoxicillin/Clavulanate [Augmentin] 875 mg PO BIDWM 5 Days #10 tablet 05/23/18 [Rx] Allergies/Adverse Reactions: Allergy/AdvReac Type Severity Reaction Status Date / Time Sulfa (Sulfonamide Allergy Unknown Unknown Verified 05/23/18 08:31 Antibiotics) acetaminophen [From Tylenol] Allergy Chest Pain Verified 05/23/18 08:31 codeine Allergy Chest Pain Verified 05/23/18 08:31 Certification: Further, I certify that my clinical findings support that this patient is ho mebound (i.e. absences from home require considerable and taxing effort and are for medical reasons or jainism services or infrequently or short duration when for other reasons) because: Homebound Reason: Patient requires assistance of a person or device to safely leave home Attestation: My signature below is to certify that this patient is under my care and that I, or nurse practitioner, or a physician's surgical physician assistant working with me, has a [id number] encounter with this patient.
[2018-05-23 11:34] VITALS: BP 100/49
== END 2018-05-23 16:49 | disposition home health service (06) | DRG 291 ==
LOC: 3BNU 06:24 → EMEROOARM 06:24 → 3BNU 11:18
PROVIDERS: ADMIT Internal Medicine; ATTEND Internal Medicine

== ENCOUNTER 2019-08-10 15:26 | Inpatient (IN) ==
[2019-08-10] MEDS ORDERED: *HR* Heparin 5,000 UNIT/ML VIAL IVP PRN ×2 (16:15)
[2019-08-10] MEDS ORDERED: *HR* Heparin 5,000 UNIT/ML VIAL IVP ONE (16:15)
[2019-08-10 16:37] LABS: Basophils % 0.6 %; Eosinophils # 0.2 K/mcL (0.0-0.6); Eosinophils % 2.7 %; Hematocrit 44.4 % (35.3-44.9); Immature Granulocytes % 0.5 % (0-4); Lymphocytes # 1.1 K/mcL (0.6-4.6); Lymphocytes % 16.9 %; Mean Corpuscular HGB Conc 31.5 g/dL (31.6-35.5); Mean Corpuscular Hemoglobin 29.9 pg (28.0-33.3); Mean Corpuscular Volume 94.9 fL (83.0-100.0); Monocytes # 0.6 K/mcL (0.0-1.3); Monocytes % 9.7 %; Neutrophils # 4.6 K/mcL (1.6-8.9); Platelet Count 150 K/mcL (140-400); Red Blood Count 4.68 M/mcL (3.82-4.97); Red Cell Distribution Width 14.8 % (11.5-14.5); Segmented Neutrophils % 69.6 %; White Blood Count 6.6 K/mcL (4.3-11.1)
[2019-08-10 16:42] LABS: INR 1.1; Prothrombin Time 12.8 Seconds (9.4-12.1)
[2019-08-10 16:45] LABS: Activated Partial Thrombo Time 36.1 Seconds (26.0-36.0)
[2019-08-10] MEDS: Heparin 25,000 UNIT/250 ML D5W 25,000 UNIT/250 ML IV.SOLN IVC SCH (16:53)
[2019-08-10 17:04] LABS: Calcium 9.1 mg/dL (8.6-10.3); Potassium 4.7 mEq/L (3.5-5.1)
[2019-08-10] MEDS ORDERED: 0.9 % Sodium Chloride 1,000 ML IVC ONE (17:08)
[2019-08-10] MEDS ORDERED: Ondansetron 4 MG/2 ML VIAL IVP PRN (18:46)
[2019-08-10] MEDS ORDERED: Naloxone 0.4 MG/ML INJ IVP PRN (18:46)
[2019-08-10] MEDS ORDERED: 0.9 % Sodium Chloride 1,000 ML IVC SCH (19:00)
[2019-08-10] MEDS ORDERED: D5% in Water 1,000 ML IVC PRN (19:44)
[2019-08-10] MEDS ORDERED: *HR* Dextrose 50 % in Water (Syg) 50 ML SYRINGE IVP PRN (19:44)
[2019-08-10] MEDS ORDERED: Dextrose Gel 15 GM/37.5 ML TUBE PO PRN ×2 (19:44)
[2019-08-10] MEDS: Insulin LISPRO 300 UNITS/3 ML VIAL SQ SCH (21:10)
[2019-08-10] MEDS: hydrALAZINE 10 MG TABLET PO SCH (21:22)
[2019-08-10] MEDS: Insulin DETEMIR 100 UNIT/ML X5UNITS SQ SCH (22:43)
[2019-08-11 02:43] LABS: Hematocrit 40.5 % (35.3-44.9); Hemoglobin 12.7 g/dL (11.5-15.4); Mean Corpuscular HGB Conc 31.4 g/dL (31.6-35.5); Mean Corpuscular Hemoglobin 29.9 pg (28.0-33.3); Mean Corpuscular Volume 95.3 fL (83.0-100.0); Mean Platelet Volume 9.3 fL (9.4-12.4); Platelet Count 145 K/mcL (140-400); Red Blood Count 4.25 M/mcL (3.82-4.97); Red Cell Distribution Width 14.7 % (11.5-14.5); White Blood Count 6.6 K/mcL (4.3-11.1)
[2019-08-11 02:46] LABS: INR 1.2
[2019-08-11 02:50] LABS: Activated Partial Thrombo Time 61.2 Seconds (26.0-36.0)
[2019-08-11 03:05] LABS: Calcium 8.8 mg/dL (8.6-10.3); Potassium 4.4 mEq/L (3.5-5.1)
[2019-08-11] MEDS: Insulin LISPRO 300 UNITS/3 ML VIAL SQ SCH ×7 (08:25→21:35)
[2019-08-11] MEDS: Cholecalciferol (D-3) 1,000 UNIT (25MCG) TABLET PO SCH (08:26)
[2019-08-11] MEDS: Isosorbide MONOnitrate (24 HR) 30 MG TAB.ER.24H PO SCH (08:26)
[2019-08-11] MEDS: hydrALAZINE 10 MG TABLET PO SCH ×3 (08:26→21:36)
[2019-08-11] MEDS: Metoprolol XL (24 HR) Succ 50 MG TAB.ER.24H PO SCH (08:27)
[2019-08-11] MEDS: Gabapentin 300 MG CAPSULE PO SCH (08:27)
[2019-08-11] MEDS: Furosemide 20 MG TABLET PO SCH (08:27)
[2019-08-11] MEDS ORDERED: Furosemide 20 MG TABLET PO SCH (09:00)
[2019-08-11] MEDS ORDERED: Famotidine 20 MG TABLET PO SCH (09:00)
[2019-08-11] MEDS ORDERED: Aspirin Enteric Coated 81 MG Tablet PO SCH (09:00)
[2019-08-11] MEDS: Heparin 25,000 UNIT/250 ML D5W 25,000 UNIT/250 ML IV.SOLN IVC SCH (14:52)
[2019-08-11] MEDS: Famotidine 20 MG TABLET PO SCH (16:24)
[2019-08-11] MEDS ORDERED: 0.9 % Sodium Chloride 1,000 ML IVC SCH (17:15)
[2019-08-11] MEDS ORDERED: Warfarin perPT PO PRN (18:00)
[2019-08-11] MEDS ORDERED: *HR* Warfarin 5 MG TABLET PO ONE (18:00)
[2019-08-11] MEDS: Insulin DETEMIR 100 UNIT/ML X5UNITS SQ SCH (22:03)
[2019-08-12 02:23] LABS: Hemoglobin 13.4 g/dL (11.5-15.4); Mean Corpuscular HGB Conc 31.9 g/dL (31.6-35.5); Mean Corpuscular Hemoglobin 30.2 pg (28.0-33.3); Mean Corpuscular Volume 94.8 fL (83.0-100.0); Mean Platelet Volume 9.2 fL (9.4-12.4); Platelet Count 148 K/mcL (140-400); Red Blood Count 4.43 M/mcL (3.82-4.97); Red Cell Distribution Width 14.8 % (11.5-14.5); White Blood Count 7.6 K/mcL (4.3-11.1)
[2019-08-12 02:29] LABS: INR 1.3; Prothrombin Time 14.5 Seconds (9.4-12.1)
[2019-08-12 02:46] LABS: Calcium 8.8 mg/dL (8.6-10.3); Potassium 4.7 mEq/L (3.5-5.1)
[2019-08-12] MEDS: Insulin LISPRO 300 UNITS/3 ML VIAL SQ SCH ×7 (09:00→20:02)
[2019-08-12] MEDS: Metoprolol XL (24 HR) Succ 50 MG TAB.ER.24H PO SCH (09:12)
[2019-08-12] MEDS: Cholecalciferol (D-3) 1,000 UNIT (25MCG) TABLET PO SCH (09:12)
[2019-08-12] MEDS: hydrALAZINE 10 MG TABLET PO SCH ×3 (09:12→20:13)
[2019-08-12] MEDS: Gabapentin 300 MG CAPSULE PO SCH (09:12)
[2019-08-12] MEDS: Isosorbide MONOnitrate (24 HR) 30 MG TAB.ER.24H PO SCH (09:12)
[2019-08-12] MEDS: Heparin 25,000 UNIT/250 ML D5W 25,000 UNIT/250 ML IV.SOLN IVC SCH (13:51)
[2019-08-12] MEDS ORDERED: *HR* Warfarin 5 MG TABLET PO ONE (18:00)
[2019-08-12] MEDS: Famotidine 20 MG TABLET PO SCH (18:03)
[2019-08-12] MEDS: Insulin DETEMIR 100 UNIT/ML X5UNITS SQ SCH (20:13)
[2019-08-13 05:33] LABS: Hematocrit 42.4 % (35.3-44.9); Hemoglobin 13.2 g/dL (11.5-15.4); Mean Corpuscular HGB Conc 31.1 g/dL (31.6-35.5); Mean Corpuscular Hemoglobin 30.3 pg (28.0-33.3); Mean Corpuscular Volume 97.2 fL (83.0-100.0); Mean Platelet Volume 9.3 fL (9.4-12.4); Platelet Count 145 K/mcL (140-400); Red Blood Count 4.36 M/mcL (3.82-4.97); Red Cell Distribution Width 14.9 % (11.5-14.5); White Blood Count 7.5 K/mcL (4.3-11.1)
[2019-08-13 05:35] LABS: INR 1.4; Prothrombin Time 15.5 Seconds (9.4-12.1)
[2019-08-13 05:50] LABS: Calcium 8.9 mg/dL (8.6-10.3); Magnesium 1.8 mg/dL (1.6-2.6); Phosphorous 3.7 mg/dL (2.7-4.5); Potassium 4.7 mEq/L (3.5-5.1)
[2019-08-13] MEDS: Insulin LISPRO 300 UNITS/3 ML VIAL SQ SCH ×7 (07:36→21:04)
[2019-08-13] MEDS: Furosemide 20 MG TABLET PO SCH (07:55)
[2019-08-13] MEDS: hydrALAZINE 10 MG TABLET PO SCH ×3 (07:56→21:06)
[2019-08-13] MEDS: Cholecalciferol (D-3) 1,000 UNIT (25MCG) TABLET PO SCH (07:56)
[2019-08-13] MEDS: Metoprolol XL (24 HR) Succ 50 MG TAB.ER.24H PO SCH (07:56)
[2019-08-13] MEDS: Isosorbide MONOnitrate (24 HR) 30 MG TAB.ER.24H PO SCH (07:56)
[2019-08-13] MEDS: Gabapentin 300 MG CAPSULE PO SCH (07:56)
[2019-08-13] MEDS: Heparin 25,000 UNIT/250 ML D5W 25,000 UNIT/250 ML IV.SOLN IVC SCH (12:06)
[2019-08-13] MEDS: Famotidine 20 MG TABLET PO SCH (16:00)
[2019-08-13] MEDS ORDERED: *HR* Warfarin 5 MG TABLET PO ONE (18:00)
[2019-08-13] MEDS: Insulin DETEMIR 100 UNIT/ML X5UNITS SQ SCH (21:07)
[2019-08-14 05:54] LABS: Hematocrit 42.5 % (35.3-44.9); Hemoglobin 13.1 g/dL (11.5-15.4); Mean Corpuscular HGB Conc 30.8 g/dL (31.6-35.5); Mean Corpuscular Hemoglobin 30.4 pg (28.0-33.3); Mean Corpuscular Volume 98.6 fL (83.0-100.0); Mean Platelet Volume 10.1 fL (9.4-12.4); Platelet Count 145 K/mcL (140-400); Red Blood Count 4.31 M/mcL (3.82-4.97); White Blood Count 8.3 K/mcL (4.3-11.1)
[2019-08-14 05:59] LABS: INR 1.7; Prothrombin Time 19.4 Seconds (9.4-12.1)
[2019-08-14 06:15] LABS: Calcium 9.1 mg/dL (8.6-10.3); Potassium 4.7 mEq/L (3.5-5.1)
[2019-08-14 06:40] LABS: Magnesium 1.7 mg/dL (1.6-2.6)
[2019-08-14 06:41] LABS: Phosphorous 4.3 mg/dL (2.7-4.5)
[2019-08-14] MEDS: Insulin LISPRO 300 UNITS/3 ML VIAL SQ SCH ×7 (07:47→22:31)
[2019-08-14] MEDS: Metoprolol XL (24 HR) Succ 50 MG TAB.ER.24H PO SCH (07:57)
[2019-08-14] MEDS: Isosorbide MONOnitrate (24 HR) 30 MG TAB.ER.24H PO SCH (07:58)
[2019-08-14] MEDS: Gabapentin 300 MG CAPSULE PO SCH (07:58)
[2019-08-14] MEDS: Ascorbic Acid 500 MG TABLET PO SCH (07:58)
[2019-08-14] MEDS: hydrALAZINE 10 MG TABLET PO SCH ×3 (07:58→22:30)
[2019-08-14] MEDS: Cholecalciferol (D-3) 1,000 UNIT (25MCG) TABLET PO SCH (07:58)
[2019-08-14] MEDS ORDERED: Furosemide 20 MG/2 ML VIAL IVP ONE (12:07)
[2019-08-14] MEDS: Heparin 25,000 UNIT/250 ML D5W 25,000 UNIT/250 ML IV.SOLN IVC SCH ×2 (15:24→22:30)
[2019-08-14] MEDS: Famotidine 20 MG TABLET PO SCH (16:23)
[2019-08-14] MEDS ORDERED: *HR* Warfarin 5 MG TABLET PO ONE (18:00)
[2019-08-14 18:36] LABS: ABG Base Excess 0 mEq/L (-2 to 3); ABG HCO3 24 mEq/L (21-27); ABG Oxygen Saturation 97 % (95-98); ABG PCO2 37 mmHg (35-45); ABG PH 7.43 pH Units (7.32-7.45); ABG PO2 88 mmHg (85-104); ABG TCO2 26 mEq/L (20-26)
[2019-08-14] MEDS ORDERED: Insulin DETEMIR 100 UNIT/ML X5UNITS SQ SCH (21:00)
[2019-08-15] MEDS: Heparin 25,000 UNIT/250 ML D5W 25,000 UNIT/250 ML IV.SOLN IVC SCH (02:23)
[2019-08-15 05:49] LABS: INR 2.3; Prothrombin Time 26.1 Seconds (9.4-12.1)
[2019-08-15] MEDS: Insulin LISPRO 300 UNITS/3 ML VIAL SQ SCH ×2 (07:36)
[2019-08-15] MEDS: hydrALAZINE 10 MG TABLET PO SCH (07:37)
[2019-08-15] MEDS: Furosemide 20 MG TABLET PO SCH (07:37)
[2019-08-15] MEDS: Cholecalciferol (D-3) 1,000 UNIT (25MCG) TABLET PO SCH (07:37)
[2019-08-15] MEDS: Isosorbide MONOnitrate (24 HR) 30 MG TAB.ER.24H PO SCH (07:37)
[2019-08-15] MEDS: Metoprolol XL (24 HR) Succ 50 MG TAB.ER.24H PO SCH (07:37)
[2019-08-15] MEDS: Gabapentin 300 MG CAPSULE PO SCH (07:37)
[2019-08-15] MEDS: Ascorbic Acid 500 MG TABLET PO SCH (07:37)
[2019-08-15 08:53] LABS: Calcium 8.8 mg/dL (8.6-10.3)
[2019-08-15] MEDS ORDERED: Furosemide 40 MG/4 ML VIAL IVP ONE (09:03)
[2019-08-15 10:33] VITALS: BP 100/65
[2019-08-15] MEDS ORDERED: *HR* Warfarin 5 MG TABLET PO ONE (18:00)
[2019-08-16] MEDS ORDERED: Ergocalciferol (VIT D2) 50,000 UNIT (1.25MG) CAP PO SCH (18:00)
== END 2019-08-15 14:21 | disposition home health service (06) | DRG 303 ==
LOC: EMEROOARM 15:26 → 2ANU 15:26 → SUATTDRO 18:10 → 2ANU 20:05
PROVIDERS: ADMIT Family Medicine; ATTEND Internal Medicine

== ENCOUNTER 2019-09-29 17:56 | Inpatient (IN) ==
[2019-09-29 19:22] LABS: Basophils % 0.5 %; Eosinophils # 0.3 K/mcL (0.0-0.6); Eosinophils % 3.7 %; Hematocrit 36.1 % (35.3-44.9); Hemoglobin 10.9 g/dL (11.5-15.4); Immature Granulocytes % 0.5 % (0-4); Lymphocytes # 1.4 K/mcL (0.6-4.6); Lymphocytes % 18.6 %; Mean Corpuscular HGB Conc 30.2 g/dL (31.6-35.5); Mean Corpuscular Hemoglobin 30.8 pg (28.0-33.3); Mean Platelet Volume 9.4 fL (9.4-12.4); Monocytes # 0.7 K/mcL (0.0-1.3); Platelet Count 201 K/mcL (140-400); Red Blood Count 3.54 M/mcL (3.82-4.97); Red Cell Distribution Width 19.8 % (11.5-14.5); Segmented Neutrophils % 67.7 %; White Blood Count 7.3 K/mcL (4.3-11.1)
[2019-09-29] MEDS ORDERED: Furosemide 40 MG/4 ML VIAL IVP ONE (19:25)
[2019-09-29 19:28] LABS: Potassium 4.7 mEq/L (3.5-5.1); Troponin I 0.03 ng/mL (< 0.04)
[2019-09-30 05:27] LABS: Basophils # 0.1 K/mcL (0.0-0.2); Basophils % 0.6 %; Eosinophils # 0.3 K/mcL (0.0-0.6); Hematocrit 32.6 % (35.3-44.9); Hemoglobin 9.9 g/dL (11.5-15.4); Immature Granulocytes % 0.4 % (0-4); Lymphocytes # 1.7 K/mcL (0.6-4.6); Lymphocytes % 19.6 %; Mean Corpuscular HGB Conc 30.4 g/dL (31.6-35.5); Mean Corpuscular Volume 102.2 fL (83.0-100.0); Mean Platelet Volume 9.3 fL (9.4-12.4); Monocytes # 0.9 K/mcL (0.0-1.3); Monocytes % 10.9 %; Neutrophils # 5.5 K/mcL (1.6-8.9); Platelet Count 176 K/mcL (140-400); Red Blood Count 3.19 M/mcL (3.82-4.97); Red Cell Distribution Width 19.9 % (11.5-14.5); Segmented Neutrophils % 64.5 %; White Blood Count 8.5 K/mcL (4.3-11.1)
[2019-09-30 05:31] LABS: INR 1.5; Prothrombin Time 16.7 Seconds (9.4-12.1)
[2019-09-30 05:47] LABS: Albumin 3.2 g/dL (3.5-5.7); Albumin/Globulin Ratio 1.1 (1.1-2.2); Bilirubin,Total 0.4 mg/dL (0.3-1.0); Calcium 8.9 mg/dL (8.6-10.3); Total Protein 6.2 g/dL (6.4-8.9)
[2019-09-30 05:49] LABS: % Iron Saturation 10 % (15-50); Iron 32 mcg/dL (50-170); Transferrin 239 mg/dL (203-362)
[2019-09-30 06:06] LABS: Ferritin 95 ng/mL (10-120)
[2019-09-30] MEDS ORDERED: Dextrose Gel 15 GM/37.5 ML TUBE PO PRN ×2 (08:42)
[2019-09-30] MEDS ORDERED: *HR* Dextrose 50 % in Water (Syg) 50 ML SYRINGE IVP PRN (08:42)
[2019-09-30] MEDS ORDERED: D5% in Water 1,000 ML IVC PRN (08:42)
[2019-09-30] MEDS: Furosemide 40 MG/4 ML VIAL IVP SCH ×2 (08:53→21:50)
[2019-09-30] MEDS: hydrALAZINE 10 MG TABLET PO SCH ×3 (08:54→21:50)
[2019-09-30] MEDS: Gabapentin 300 MG CAPSULE PO SCH (08:54)
[2019-09-30] MEDS: Ascorbic Acid 500 MG TABLET PO SCH (08:54)
[2019-09-30] MEDS: Isosorbide MONOnitrate (24 HR) 30 MG TAB.ER.24H PO SCH (08:54)
[2019-09-30] MEDS: Metoprolol XL (24 HR) Succ 50 MG TAB.ER.24H PO SCH (08:54)
[2019-09-30] MEDS ORDERED: *HR* Heparin 5,000 UNIT/ML VIAL IVP PRN ×2 (10:33)
[2019-09-30 11:01] LABS: Hematocrit 32.6 % (35.3-44.9); Hemoglobin 9.9 g/dL (11.5-15.4); Mean Corpuscular HGB Conc 30.4 g/dL (31.6-35.5); Mean Corpuscular Volume 102.2 fL (83.0-100.0); Mean Platelet Volume 9.3 fL (9.4-12.4); Platelet Count 185 K/mcL (140-400); Red Blood Count 3.19 M/mcL (3.82-4.97); Red Cell Distribution Width 19.8 % (11.5-14.5); White Blood Count 7.7 K/mcL (4.3-11.1)
[2019-09-30 11:21] LABS: Heparin anti-factor XA UFH < 0.04 IU/mL (0.30-0.70)
[2019-09-30 11:22] LABS: INR 1.4
[2019-09-30] MEDS: Heparin 25,000 UNIT/250 ML D5W 25,000 UNIT/250 ML IV.SOLN IVC SCH (11:48)
[2019-09-30] MEDS: Insulin LISPRO 300 UNITS/3 ML VIAL SQ SCH ×3 (11:51→22:45)
[2019-09-30] MEDS ORDERED: Perflutren Lipid Microsphere 1.3 ML in 0.9 % Sodium Chloride 8.7 ML IVP ONE (15:03)
[2019-09-30] MEDS ORDERED: *HR* Warfarin 5 MG TABLET PO ONE (18:00)
[2019-09-30] MEDS ORDERED: Warfarin perPT PO PRN (18:00)
[2019-09-30 18:58] LABS: Hematocrit 34.1 % (35.3-44.9)
[2019-09-30] MEDS: Insulin DETEMIR 100 UNIT/ML X5UNITS SQ SCH (21:50)
[2019-10-01 01:21] LABS: Basophils % 0.5 %; Eosinophils # 0.3 K/mcL (0.0-0.6); Eosinophils % 3.9 %; Hematocrit 31.6 % (35.3-44.9); Hemoglobin 9.6 g/dL (11.5-15.4); INR 1.5; Immature Granulocytes % 0.4 % (0-4); Lymphocytes # 1.9 K/mcL (0.6-4.6); Lymphocytes % 23.8 %; Mean Corpuscular HGB Conc 30.4 g/dL (31.6-35.5); Mean Corpuscular Hemoglobin 30.7 pg (28.0-33.3); Mean Platelet Volume 9.5 fL (9.4-12.4); Monocytes # 0.8 K/mcL (0.0-1.3); Monocytes % 10.2 %; Neutrophils # 4.8 K/mcL (1.6-8.9); Platelet Count 168 K/mcL (140-400); Prothrombin Time 16.9 Seconds (9.4-12.1); Red Blood Count 3.13 M/mcL (3.82-4.97); Red Cell Distribution Width 19.9 % (11.5-14.5); Segmented Neutrophils % 61.2 %; White Blood Count 7.8 K/mcL (4.3-11.1)
[2019-10-01 01:38] LABS: Calcium 8.6 mg/dL (8.6-10.3); Phosphorous 4.7 mg/dL (2.7-4.5)
[2019-10-01] MEDS: Heparin 25,000 UNIT/250 ML D5W 25,000 UNIT/250 ML IV.SOLN IVC SCH (06:40)
[2019-10-01] MEDS: Insulin LISPRO 300 UNITS/3 ML VIAL SQ SCH ×4 (08:25→21:09)
[2019-10-01] MEDS: hydrALAZINE 10 MG TABLET PO SCH ×3 (08:36→21:09)
[2019-10-01] MEDS: Metoprolol XL (24 HR) Succ 50 MG TAB.ER.24H PO SCH (08:36)
[2019-10-01] MEDS: Ascorbic Acid 500 MG TABLET PO SCH (08:36)
[2019-10-01] MEDS: Gabapentin 300 MG CAPSULE PO SCH (08:36)
[2019-10-01] MEDS: Isosorbide MONOnitrate (24 HR) 30 MG TAB.ER.24H PO SCH (08:36)
[2019-10-01] MEDS: Furosemide 40 MG/4 ML VIAL IVP SCH ×2 (08:37→21:08)
[2019-10-01] MEDS ORDERED: *HR* Warfarin 5 MG TABLET PO ONE (18:00)
[2019-10-01] MEDS ORDERED: Sennosides/Docusate Sodium TABLET PO SCH (21:00)
[2019-10-01] MEDS: Insulin DETEMIR 100 UNIT/ML X5UNITS SQ SCH (21:09)
[2019-10-02] MEDS: Heparin 25,000 UNIT/250 ML D5W 25,000 UNIT/250 ML IV.SOLN IVC SCH ×2 (00:47→23:13)
[2019-10-02 03:07] LABS: INR 1.6; Prothrombin Time 18.3 Seconds (9.4-12.1)
[2019-10-02 03:10] LABS: Basophils % 0.5 %; Eosinophils # 0.3 K/mcL (0.0-0.6); Eosinophils % 3.7 %; Hematocrit 34.4 % (35.3-44.9); Hemoglobin 10.5 g/dL (11.5-15.4); Immature Granulocytes % 0.5 % (0-4); Lymphocytes # 1.5 K/mcL (0.6-4.6); Lymphocytes % 18.7 %; Mean Corpuscular HGB Conc 30.5 g/dL (31.6-35.5); Mean Corpuscular Hemoglobin 30.5 pg (28.0-33.3); Mean Platelet Volume 9.4 fL (9.4-12.4); Monocytes # 0.9 K/mcL (0.0-1.3); Monocytes % 11.6 %; Neutrophils # 5.2 K/mcL (1.6-8.9); Platelet Count 177 K/mcL (140-400); Red Blood Count 3.44 M/mcL (3.82-4.97); Red Cell Distribution Width 19.8 % (11.5-14.5)
[2019-10-02 03:22] LABS: Calcium 8.9 mg/dL (8.6-10.3); Magnesium 1.9 mg/dL (1.6-2.6); Phosphorous 4.5 mg/dL (2.7-4.5); Potassium 4.3 mEq/L (3.5-5.1)
[2019-10-02] MEDS: Insulin LISPRO 300 UNITS/3 ML VIAL SQ SCH ×4 (08:43→22:53)
[2019-10-02] MEDS: Ascorbic Acid 500 MG TABLET PO SCH (08:55)
[2019-10-02] MEDS: Furosemide 40 MG/4 ML VIAL IVP SCH (08:55)
[2019-10-02] MEDS: Gabapentin 300 MG CAPSULE PO SCH (08:55)
[2019-10-02] MEDS: Isosorbide MONOnitrate (24 HR) 30 MG TAB.ER.24H PO SCH (08:55)
[2019-10-02] MEDS: hydrALAZINE 10 MG TABLET PO SCH ×3 (08:55→21:56)
[2019-10-02] MEDS: Metoprolol XL (24 HR) Succ 50 MG TAB.ER.24H PO SCH (08:55)
[2019-10-02] MEDS ORDERED: *HR* Warfarin 5 MG TABLET PO ONE (18:00)
[2019-10-02] MEDS: Insulin DETEMIR 100 UNIT/ML X5UNITS SQ SCH (23:01)
[2019-10-03 05:23] LABS: INR 1.8; Prothrombin Time 20.2 Seconds (9.4-12.1)
[2019-10-03 05:28] LABS: Basophils % 0.5 %; Eosinophils # 0.3 K/mcL (0.0-0.6); Eosinophils % 3.1 %; Hemoglobin 10.8 g/dL (11.5-15.4); Immature Granulocytes % 0.6 % (0-4); Lymphocytes % 12.2 %; Mean Platelet Volume 9.2 fL (9.4-12.4); Monocytes # 0.8 K/mcL (0.0-1.3); Monocytes % 9.9 %; Platelet Count 178 K/mcL (140-400); Red Cell Distribution Width 19.9 % (11.5-14.5); Segmented Neutrophils % 73.7 %; White Blood Count 8.1 K/mcL (4.3-11.1)
[2019-10-03 05:37] LABS: Calcium 9.2 mg/dL (8.6-10.3); Magnesium 1.7 mg/dL (1.6-2.6); Phosphorous 3.5 mg/dL (2.7-4.5); Potassium 3.6 mEq/L (3.5-5.1)
[2019-10-03] MEDS ORDERED: hydrALAZINE 10 MG TABLET ONE (08:10)
[2019-10-03] MEDS ORDERED: Gabapentin 300 MG CAPSULE ONE (08:10)
[2019-10-03] MEDS ORDERED: Isosorbide MONOnitrate (24 HR) 30 MG TAB.ER.24H PO ONE (08:10)
[2019-10-03] MEDS ORDERED: Ascorbic Acid 500 MG TABLET ONE (08:10)
[2019-10-03] MEDS ORDERED: Furosemide 40 MG TABLET PO ONE (08:10)
[2019-10-03] MEDS ORDERED: Metoprolol XL (24 HR) Succ 50 MG TAB.ER.24H PO ONE (08:10)
[2019-10-03] MEDS ORDERED: Furosemide 40 MG/4 ML VIAL IVP SCH (09:00)
[2019-10-03] MEDS ORDERED: Lidocaine -MPF 2% 2 ML VIAL ONE (10:56)
[2019-10-03] MEDS ORDERED: *HR* Propofol 200 MG/20 ML VIAL IVP ONE (10:56)
[2019-10-03] MEDS ORDERED: *HR* PHENYLEPHRINE 1,000 MCG/10 ML SYRINGE IVP ONE (11:19)
[2019-10-03] MEDS: Insulin LISPRO 300 UNITS/3 ML VIAL SQ SCH ×2 (16:59→17:02)
[2019-10-03] MEDS: hydrALAZINE 10 MG TABLET PO SCH ×3 (17:00→21:58)
[2019-10-03] MEDS: Gabapentin 300 MG CAPSULE PO SCH (17:00)
[2019-10-03] MEDS: Ascorbic Acid 500 MG TABLET PO SCH (17:00)
[2019-10-03] MEDS: Metoprolol XL (24 HR) Succ 50 MG TAB.ER.24H PO SCH (17:00)
[2019-10-03] MEDS: Furosemide 40 MG TABLET PO SCH (17:00)
[2019-10-03] MEDS: Isosorbide MONOnitrate (24 HR) 30 MG TAB.ER.24H PO SCH (17:00)
[2019-10-03] MEDS: Heparin 25,000 UNIT/250 ML D5W 25,000 UNIT/250 ML IV.SOLN IVC SCH (17:02)
[2019-10-03] MEDS: Insulin DETEMIR 100 UNIT/ML X5UNITS SQ SCH (21:58)
[2019-10-04 04:03] LABS: Basophils % 0.5 %; Eosinophils # 0.3 K/mcL (0.0-0.6); Eosinophils % 4.4 %; Hematocrit 35.8 % (35.3-44.9); Hemoglobin 10.7 g/dL (11.5-15.4); Immature Granulocytes % 0.4 % (0-4); Lymphocytes # 1.2 K/mcL (0.6-4.6); Lymphocytes % 15.7 %; Mean Corpuscular HGB Conc 29.9 g/dL (31.6-35.5); Mean Corpuscular Hemoglobin 29.9 pg (28.0-33.3); Mean Platelet Volume 8.8 fL (9.4-12.4); Monocytes # 0.8 K/mcL (0.0-1.3); Monocytes % 10.3 %; Neutrophils # 5.3 K/mcL (1.6-8.9); Platelet Count 167 K/mcL (140-400); Red Blood Count 3.58 M/mcL (3.82-4.97); Red Cell Distribution Width 19.8 % (11.5-14.5); Segmented Neutrophils % 68.7 %; White Blood Count 7.8 K/mcL (4.3-11.1)
[2019-10-04 04:04] LABS: Prothrombin Time 23.1 Seconds (9.4-12.1)
[2019-10-04 04:16] LABS: Calcium 9.1 mg/dL (8.6-10.3); Magnesium 1.9 mg/dL (1.6-2.6); Potassium 3.9 mEq/L (3.5-5.1)
[2019-10-04] MEDS: Insulin LISPRO 300 UNITS/3 ML VIAL SQ SCH ×5 (05:53→22:17)
[2019-10-04] MEDS: Heparin 25,000 UNIT/250 ML D5W 25,000 UNIT/250 ML IV.SOLN IVC SCH ×2 (06:00→09:11)
[2019-10-04] MEDS: Gabapentin 300 MG CAPSULE PO SCH (09:06)
[2019-10-04] MEDS: Furosemide 40 MG TABLET PO SCH (09:06)
[2019-10-04] MEDS: Ascorbic Acid 500 MG TABLET PO SCH (09:06)
[2019-10-04] MEDS: Isosorbide MONOnitrate (24 HR) 30 MG TAB.ER.24H PO SCH (09:06)
[2019-10-04] MEDS: hydrALAZINE 10 MG TABLET PO SCH ×3 (09:06→22:15)
[2019-10-04] MEDS: Metoprolol XL (24 HR) Succ 50 MG TAB.ER.24H PO SCH (09:09)
[2019-10-04] MEDS ORDERED: *HR* Warfarin 5 MG TABLET PO ONE (18:00)
[2019-10-04] MEDS: Insulin DETEMIR 100 UNIT/ML X5UNITS SQ SCH (22:16)
[2019-10-05 05:14] LABS: Basophils % 0.4 %; Eosinophils # 0.3 K/mcL (0.0-0.6); Hematocrit 33.7 % (35.3-44.9); Hemoglobin 10.1 g/dL (11.5-15.4); Immature Granulocytes % 0.5 % (0-4); Lymphocytes # 1.3 K/mcL (0.6-4.6); Lymphocytes % 16.7 %; Mean Platelet Volume 9.4 fL (9.4-12.4); Monocytes # 0.8 K/mcL (0.0-1.3); Monocytes % 10.4 %; Neutrophils # 5.1 K/mcL (1.6-8.9); Platelet Count 164 K/mcL (140-400); Red Blood Count 3.37 M/mcL (3.82-4.97); Red Cell Distribution Width 19.6 % (11.5-14.5); White Blood Count 7.5 K/mcL (4.3-11.1)
[2019-10-05 05:15] LABS: INR 1.8; Prothrombin Time 20.1 Seconds (9.4-12.1)
[2019-10-05 05:36] LABS: Calcium 8.8 mg/dL (8.6-10.3); Magnesium 1.9 mg/dL (1.6-2.6); Potassium 3.9 mEq/L (3.5-5.1)
[2019-10-05] MEDS: Insulin LISPRO 300 UNITS/3 ML VIAL SQ SCH ×3 (08:07→16:51)
[2019-10-05] MEDS: Isosorbide MONOnitrate (24 HR) 30 MG TAB.ER.24H PO SCH (08:22)
[2019-10-05] MEDS: Gabapentin 300 MG CAPSULE PO SCH (08:22)
[2019-10-05] MEDS: Ascorbic Acid 500 MG TABLET PO SCH (08:22)
[2019-10-05] MEDS: Furosemide 40 MG TABLET PO SCH (08:22)
[2019-10-05] MEDS: hydrALAZINE 10 MG TABLET PO SCH ×2 (08:22→16:51)
[2019-10-05] MEDS: Metoprolol XL (24 HR) Succ 50 MG TAB.ER.24H PO SCH (08:22)
[2019-10-05] MEDS: Heparin 25,000 UNIT/250 ML D5W 25,000 UNIT/250 ML IV.SOLN IVC SCH (12:08)
[2019-10-05 15:37] VITALS: BP 128/63
[2019-10-05] MEDS ORDERED: *HR* Warfarin 5 MG TABLET PO ONE (18:00)
== END 2019-10-05 17:57 | disposition home health service (06) | DRG 291 ==
LOC: EMEROOARM 17:56 → 3BNU 17:56 → SUATTDRO 20:07 → 3BNU 20:49 → SUATTDRO 09-30 12:51 → 2ANU 10-02 20:28
PROVIDERS: ADMIT Student in an Organized Health Care Education/Training Program; ATTEND Pharmacist

== ENCOUNTER 2019-11-17 16:54 | Observation (INO) ==
[2019-11-17 17:36] LABS: Basophils % 0.5 %; Eosinophils # 0.3 K/mcL (0.0-0.6); Eosinophils % 3.8 %; Hematocrit 34.6 % (35.3-44.9); Hemoglobin 10.3 g/dL (11.5-15.4); Immature Granulocytes % 0.4 % (0-4); Lymphocytes % 12.1 %; Mean Corpuscular HGB Conc 29.8 g/dL (31.6-35.5); Mean Corpuscular Hemoglobin 27.2 pg (28.0-33.3); Mean Corpuscular Volume 91.3 fL (83.0-100.0); Mean Platelet Volume 9.3 fL (9.4-12.4); Monocytes # 0.8 K/mcL (0.0-1.3); Monocytes % 10.6 %; Neutrophils # 5.7 K/mcL (1.6-8.9); Platelet Count 218 K/mcL (140-400); Red Blood Count 3.79 M/mcL (3.82-4.97); Red Cell Distribution Width 17.2 % (11.5-14.5); Segmented Neutrophils % 72.6 %; White Blood Count 7.8 K/mcL (4.3-11.1)
[2019-11-17 17:45] LABS: Bilirubin,Urine Negative (Negative); Blood,Urine Large (Negative); Clarity,Urine Cloudy (Clear); Color,Urine Yellow (Yellow); Glucose,Urine (UA) Normal (Normal); Ketones,Urine Negative (Negative); Leukocyte Esterase,Urine Negative (Negative); Nitrite,Urine Negative (Negative); Protein,Urine >=300 mg/dL (Neg-Trace); Specific Gravity,Urine 1.017 (1.010-1.025); Urobilinogen,Urine Normal (Normal)
[2019-11-17 17:50] LABS: Bacteria,Urine None Seen per hpf (None-Few); Hyaline Casts,Urine None Seen per lpf (None-Few); RBC,Urine 50-100 per hpf (0-3); Squamous Epithelial Cell,Urine Many per lpf (None-Few); WBC,Urine 0-3 per hpf (0-3)
[2019-11-17 17:58] LABS: Albumin 3.3 g/dL (3.5-5.7); Bilirubin,Direct 0.2 mg/dL (0.0-0.2); Bilirubin,Indirect 0.3 mg/dL (0.0-1.0); Bilirubin,Total 0.5 mg/dL (0.3-1.0); Calcium 8.6 mg/dL (8.6-10.3); Globulin 3.2 g/dL (2.4-3.5); Potassium 3.9 mEq/L (3.5-5.1); Total Protein 6.5 g/dL (6.4-8.9)
[2019-11-17 18:03] LABS: Troponin I 0.04 ng/mL (< 0.04)
[2019-11-17 18:38] LABS: INR 2.5; Prothrombin Time 28.2 Seconds (9.4-12.1)
[2019-11-18] MEDS ORDERED: Furosemide 20 MG/2 ML VIAL IVP ONE (00:11)
[2019-11-18] MEDS ORDERED: *HR* Dextrose 50 % in Water (Syg) 50 ML SYRINGE IVP PRN (00:53)
[2019-11-18] MEDS ORDERED: D5% in Water 1,000 ML IVC PRN (00:53)
[2019-11-18] MEDS ORDERED: Dextrose Gel 15 GM/37.5 ML TUBE PO PRN ×2 (00:53)
[2019-11-18 08:16] LABS: Basophils # 0.1 K/mcL (0.0-0.2); Basophils % 0.7 %; Eosinophils # 0.3 K/mcL (0.0-0.6); Eosinophils % 4.4 %; Hematocrit 33.1 % (35.3-44.9); Hemoglobin 9.8 g/dL (11.5-15.4); Immature Granulocytes % 0.4 % (0-4); Lymphocytes % 13.6 %; Mean Corpuscular HGB Conc 29.6 g/dL (31.6-35.5); Mean Corpuscular Volume 91.2 fL (83.0-100.0); Mean Platelet Volume 9.1 fL (9.4-12.4); Monocytes # 0.8 K/mcL (0.0-1.3); Monocytes % 11.4 %; Platelet Count 217 K/mcL (140-400); Red Blood Count 3.63 M/mcL (3.82-4.97); Red Cell Distribution Width 17.4 % (11.5-14.5); Segmented Neutrophils % 69.5 %; White Blood Count 7.3 K/mcL (4.3-11.1)
[2019-11-18] MEDS: Insulin LISPRO 300 UNITS/3 ML VIAL SQ SCH ×3 (08:33→16:45)
[2019-11-18] MEDS: Metoprolol XL (24 HR) Succ 50 MG TAB.ER.24H PO SCH (08:33)
[2019-11-18] MEDS: Isosorbide MONOnitrate (24 HR) 30 MG TAB.ER.24H PO SCH (08:33)
[2019-11-18 08:44] LABS: Calcium 8.9 mg/dL (8.6-10.3); Potassium 3.9 mEq/L (3.5-5.1); Troponin I 0.04 ng/mL (< 0.04)
[2019-11-18] MEDS ORDERED: Sennosides/Docusate Sodium TABLET PO PRN (13:41)
[2019-11-18] MEDS: Sucralfate 1 GM TABLET PO SCH ×2 (16:44→21:12)
[2019-11-18] MEDS: hydrALAZINE 10 MG TABLET PO SCH ×2 (16:44→21:12)
[2019-11-18] MEDS ORDERED: Furosemide 20 MG TABLET PO PRN (17:00)
[2019-11-18] MEDS ORDERED: Warfarin perPT PO PRN (18:00)
[2019-11-18] MEDS ORDERED: *HR* Warfarin 5 MG TABLET PO SCH (18:00)
[2019-11-18] MEDS ORDERED: *HR* Warfarin 5 MG TABLET PO ONE (18:00)
[2019-11-18] MEDS ORDERED: Insulin LISPRO 300 UNITS/3 ML VIAL SQ SCH (21:00)
[2019-11-18] MEDS ORDERED: Insulin DETEMIR 100 UNIT/ML X5UNITS SQ SCH (21:00)
[2019-11-19 01:32] LABS: Hematocrit 35.1 % (35.3-44.9); Hemoglobin 10.4 g/dL (11.5-15.4); Mean Corpuscular HGB Conc 29.6 g/dL (31.6-35.5); Mean Corpuscular Volume 91.2 fL (83.0-100.0); Mean Platelet Volume 9.2 fL (9.4-12.4); Platelet Count 227 K/mcL (140-400); Red Blood Count 3.85 M/mcL (3.82-4.97); Red Cell Distribution Width 17.2 % (11.5-14.5); White Blood Count 9.5 K/mcL (4.3-11.1)
[2019-11-19 01:34] LABS: VBG HCO3 22 mEq/L (21-27); VBG PCO2 45 mmHg (41-51); VBG PH 7.31 pH Units (7.32-7.42); VBG PO2 69 mmHg (25-50)
[2019-11-19 01:41] LABS: INR 2.6; Prothrombin Time 29.4 Seconds (9.4-12.1)
[2019-11-19 01:52] LABS: Calcium 8.7 mg/dL (8.6-10.3)
[2019-11-19 08:00] VITALS: BP 124/63
[2019-11-19] MEDS: Insulin LISPRO 300 UNITS/3 ML VIAL SQ SCH (08:43)
[2019-11-19] MEDS: Isosorbide MONOnitrate (24 HR) 30 MG TAB.ER.24H PO SCH (08:57)
[2019-11-19] MEDS: Metoprolol XL (24 HR) Succ 50 MG TAB.ER.24H PO SCH (08:57)
[2019-11-19] MEDS: Sucralfate 1 GM TABLET PO SCH (08:57)
[2019-11-19] MEDS ORDERED: Ascorbic Acid 500 MG TABLET PO SCH (09:00)
[2019-11-19] MEDS ORDERED: Gabapentin 300 MG CAPSULE PO SCH (09:00)
[2019-11-19] MEDS: hydrALAZINE 10 MG TABLET PO SCH (09:00)
[2019-11-19] MEDS ORDERED: Famotidine 20 MG TABLET PO SCH (09:00)
== END 2019-11-19 12:40 | disposition home health service (06) ==
LOC: 3BNU 16:54 → EMEROOARM 16:54 → 3BNU 20:10
PROVIDERS: ADMIT Internal Medicine; ATTEND Internal Medicine

== ENCOUNTER 2019-12-11 16:39 | Inpatient (IN) ==
[2019-12-11] MEDS ORDERED: Naloxone 0.4 MG/ML INJ IVP PRN (19:16)
[2019-12-11] MEDS ORDERED: Dextrose Gel 15 GM/37.5 ML TUBE PO PRN ×2 (20:10)
[2019-12-11] MEDS ORDERED: D5% in Water 1,000 ML IVC PRN (20:10)
[2019-12-11] MEDS ORDERED: *HR* Dextrose 50 % in Water (Syg) 50 ML SYRINGE IVP PRN (20:10)
[2019-12-11 20:12] LABS: INR 2.7; Prothrombin Time 30.4 Seconds (9.4-12.1)
[2019-12-11 20:15] LABS: Basophils % 0.2 %; Eosinophils % 0.1 %; Hematocrit 29.1 % (35.3-44.9); Hemoglobin 8.8 g/dL (11.5-15.4); Immature Granulocytes % 0.6 % (0-4); Lymphocytes # 0.7 K/mcL (0.6-4.6); Mean Corpuscular HGB Conc 30.2 g/dL (31.6-35.5); Mean Corpuscular Hemoglobin 25.6 pg (28.0-33.3); Mean Corpuscular Volume 84.6 fL (83.0-100.0); Mean Platelet Volume 9.2 fL (9.4-12.4); Monocytes # 0.7 K/mcL (0.0-1.3); Monocytes % 7.5 %; Neutrophils # 8.3 K/mcL (1.6-8.9); Platelet Count 242 K/mcL (140-400); Red Blood Count 3.44 M/mcL (3.82-4.97); Red Cell Distribution Width 17.8 % (11.5-14.5); Segmented Neutrophils % 84.6 %; White Blood Count 9.9 K/mcL (4.3-11.1)
[2019-12-11 20:20] LABS: Calcium 8.6 mg/dL (8.6-10.3); Potassium 3.8 mEq/L (3.5-5.1)
[2019-12-11] MEDS: Insulin LISPRO 300 UNITS/3 ML VIAL SQ SCH (22:11)
[2019-12-11 22:13] LABS: Bilirubin,Urine Negative (Negative); Blood,Urine Moderate (Negative); Clarity,Urine Cloudy (Clear); Color,Urine Yellow (Yellow); Glucose,Urine (UA) Normal (Normal); Ketones,Urine Trace mg/dL (Negative); Leukocyte Esterase,Urine Large (Negative); Nitrite,Urine Positive (Negative); Protein,Urine >=300 mg/dL (Neg-Trace); Specific Gravity,Urine 1.015 (1.010-1.025); Urobilinogen,Urine Normal (Normal)
[2019-12-11 22:17] LABS: Bacteria,Urine Few per hpf (None-Few); Hyaline Casts,Urine None Seen per lpf (None-Few); Squamous Epithelial Cell,Urine Many per lpf (None-Few); WBC,Urine TNTC per hpf (0-3)
[2019-12-11] MEDS ORDERED: Acetaminophen 325 MG TABLET PO PRN (22:41)
[2019-12-11] MEDS ORDERED: *HR* Promethazine 25 MG/ML VIAL IVP PRN (22:41)
[2019-12-12 02:19] LABS: Basophils % 0.2 %; Eosinophils # 0.1 K/mcL (0.0-0.6); Eosinophils % 0.7 %; Hematocrit 28.6 % (35.3-44.9); Hemoglobin 8.6 g/dL (11.5-15.4); Immature Granulocytes % 0.4 % (0-4); Lymphocytes # 0.9 K/mcL (0.6-4.6); Mean Corpuscular HGB Conc 30.1 g/dL (31.6-35.5); Mean Corpuscular Hemoglobin 25.5 pg (28.0-33.3); Mean Corpuscular Volume 84.9 fL (83.0-100.0); Monocytes # 0.9 K/mcL (0.0-1.3); Monocytes % 8.5 %; Neutrophils # 8.5 K/mcL (1.6-8.9); Platelet Count 234 K/mcL (140-400); Red Blood Count 3.37 M/mcL (3.82-4.97); Segmented Neutrophils % 81.2 %; White Blood Count 10.4 K/mcL (4.3-11.1)
[2019-12-12 02:34] LABS: Calcium 8.7 mg/dL (8.6-10.3); INR 3.3; Potassium 3.4 mEq/L (3.5-5.1)
[2019-12-12 02:35] LABS: Magnesium 1.5 mg/dL (1.6-2.6); Phosphorous 3.1 mg/dL (2.7-4.5)
[2019-12-12] MEDS: Sucralfate 1 GM TABLET PO SCH ×4 (05:48→21:21)
[2019-12-12] MEDS ORDERED: *HR* Heparin 5,000 UNIT/ML VIAL IVP ONE (07:47)
[2019-12-12] MEDS ORDERED: *HR* Heparin 5,000 UNIT/ML VIAL IVP PRN ×2 (07:47)
[2019-12-12] MEDS ORDERED: Heparin 25,000 UNIT/250 ML D5W 25,000 UNIT/250 ML IV.SOLN IVC SCH (08:00)
[2019-12-12 08:23] LABS: Hematocrit 29.2 % (35.3-44.9); Hemoglobin 8.7 g/dL (11.5-15.4); Mean Corpuscular HGB Conc 29.8 g/dL (31.6-35.5); Mean Corpuscular Hemoglobin 25.3 pg (28.0-33.3); Mean Corpuscular Volume 84.9 fL (83.0-100.0); Mean Platelet Volume 9.1 fL (9.4-12.4); Platelet Count 249 K/mcL (140-400); Red Blood Count 3.44 M/mcL (3.82-4.97); Red Cell Distribution Width 18.1 % (11.5-14.5); White Blood Count 9.4 K/mcL (4.3-11.1)
[2019-12-12 08:27] LABS: Heparin anti-factor XA UFH 0.04 IU/mL (0.30-0.70)
[2019-12-12 08:28] LABS: INR 3.7; Prothrombin Time 42.5 Seconds (9.4-12.1)
[2019-12-12] MEDS: Insulin LISPRO 300 UNITS/3 ML VIAL SQ SCH ×4 (08:51→21:21)
[2019-12-12] MEDS: cefTRIAXone 1,000 MG in 0.9 % Sodium Chloride Mini Bag 100 ML IVPB SCH (08:57)
[2019-12-12] MEDS: Gabapentin 300 MG CAPSULE PO SCH (08:58)
[2019-12-12] MEDS: Metoprolol XL (24 HR) Succ 50 MG TAB.ER.24H PO SCH (08:58)
[2019-12-12] MEDS: Ascorbic Acid 500 MG TABLET PO SCH (08:58)
[2019-12-12] MEDS: hydrALAZINE 10 MG TABLET PO SCH ×3 (08:58→21:22)
[2019-12-12] MEDS ORDERED: cefTRIAXone 1,000 MG in 0.9 % Sodium Chloride Mini Bag 100 ML IVPB SCH (09:00)
[2019-12-12] MEDS ORDERED: Isosorbide MONOnitrate (24 HR) 30 MG TAB.ER.24H PO SCH (09:00)
[2019-12-12] MEDS ORDERED: Furosemide 20 MG/2 ML VIAL IVP ONE (11:26)
[2019-12-12 13:09] LABS: Hematocrit 27.8 % (35.3-44.9); Hemoglobin 8.4 g/dL (11.5-15.4)
[2019-12-12 16:27] LABS: Hematocrit 28.7 % (35.3-44.9); Hemoglobin 8.5 g/dL (11.5-15.4)
[2019-12-13 00:30] LABS: Hematocrit 27.3 % (35.3-44.9); Hemoglobin 8.2 g/dL (11.5-15.4)
[2019-12-13 01:04] LABS: Basophils % 0.4 %; Eosinophils # 0.4 K/mcL (0.0-0.6); Eosinophils % 4.3 %; Hemoglobin 8.2 g/dL (11.5-15.4); Immature Granulocytes % 0.5 % (0-4); Lymphocytes # 1.1 K/mcL (0.6-4.6); Lymphocytes % 12.4 %; Mean Corpuscular HGB Conc 29.3 g/dL (31.6-35.5); Mean Corpuscular Hemoglobin 24.9 pg (28.0-33.3); Mean Corpuscular Volume 85.1 fL (83.0-100.0); Mean Platelet Volume 9.7 fL (9.4-12.4); Monocytes # 0.8 K/mcL (0.0-1.3); Monocytes % 9.2 %; Neutrophils # 6.7 K/mcL (1.6-8.9); Platelet Count 252 K/mcL (140-400); Red Blood Count 3.29 M/mcL (3.82-4.97); Red Cell Distribution Width 18.1 % (11.5-14.5); Segmented Neutrophils % 73.2 %; White Blood Count 9.1 K/mcL (4.3-11.1)
[2019-12-13 01:22] LABS: Albumin 2.8 g/dL (3.5-5.7); Albumin/Globulin Ratio 0.8 (1.1-2.2); Bilirubin,Direct 0.2 mg/dL (0.0-0.2); Bilirubin,Indirect 0.4 mg/dL (0.0-1.0); Bilirubin,Total 0.6 mg/dL (0.3-1.0); Calcium 8.3 mg/dL (8.6-10.3); Globulin 3.6 g/dL (2.4-3.5); Magnesium 1.6 mg/dL (1.6-2.6); Potassium 3.2 mEq/L (3.5-5.1); Total Protein 6.4 g/dL (6.4-8.9)
[2019-12-13] MEDS: Sucralfate 1 GM TABLET PO SCH ×4 (06:01→21:52)
[2019-12-13] MEDS: Gabapentin 300 MG CAPSULE PO SCH (09:31)
[2019-12-13] MEDS: Aspirin Enteric Coated 81 MG Tablet PO SCH (09:31)
[2019-12-13] MEDS: Isosorbide MONOnitrate (24 HR) 30 MG TAB.ER.24H PO SCH (09:31)
[2019-12-13] MEDS: Metoprolol XL (24 HR) Succ 50 MG TAB.ER.24H PO SCH (09:31)
[2019-12-13] MEDS: hydrALAZINE 10 MG TABLET PO SCH ×3 (09:31→20:03)
[2019-12-13] MEDS: Ascorbic Acid 500 MG TABLET PO SCH (09:31)
[2019-12-13] MEDS: lisinopriL 5 MG TABLET PO SCH (09:32)
[2019-12-13] MEDS: cefTRIAXone 1,000 MG in 0.9 % Sodium Chloride Mini Bag 100 ML IVPB SCH (09:32)
[2019-12-13] MEDS: Insulin LISPRO 300 UNITS/3 ML VIAL SQ SCH ×4 (09:57→21:52)
[2019-12-13] MEDS: *HR* Heparin 5,000 UNIT/ML VIAL SQ SCH (21:53)
[2019-12-14 02:08] LABS: Basophils % 0.4 %; Eosinophils # 0.5 K/mcL (0.0-0.6); Eosinophils % 5.4 %; Hematocrit 27.9 % (35.3-44.9); Hemoglobin 8.1 g/dL (11.5-15.4); Immature Granulocytes % 0.7 % (0-4); Lymphocytes % 11.4 %; Mean Corpuscular Volume 86.1 fL (83.0-100.0); Mean Platelet Volume 9.7 fL (9.4-12.4); Monocytes # 0.8 K/mcL (0.0-1.3); Monocytes % 9.3 %; Neutrophils # 6.5 K/mcL (1.6-8.9); Platelet Count 254 K/mcL (140-400); Red Blood Count 3.24 M/mcL (3.82-4.97); Red Cell Distribution Width 17.7 % (11.5-14.5); Segmented Neutrophils % 72.8 %
[2019-12-14 02:21] LABS: Calcium 8.1 mg/dL (8.6-10.3); Magnesium 1.9 mg/dL (1.6-2.6); Potassium 3.8 mEq/L (3.5-5.1)
[2019-12-14] MEDS: *HR* Heparin 5,000 UNIT/ML VIAL SQ SCH ×3 (05:16→21:08)
[2019-12-14] MEDS: cefTRIAXone 1,000 MG in 0.9 % Sodium Chloride Mini Bag 100 ML IVPB SCH (09:53)
[2019-12-14] MEDS: Metoprolol XL (24 HR) Succ 50 MG TAB.ER.24H PO SCH (09:59)
[2019-12-14] MEDS: Gabapentin 300 MG CAPSULE PO SCH (09:59)
[2019-12-14] MEDS: Sucralfate 1 GM TABLET PO SCH ×4 (09:59→21:08)
[2019-12-14] MEDS: lisinopriL 5 MG TABLET PO SCH (09:59)
[2019-12-14] MEDS: Aspirin Enteric Coated 81 MG Tablet PO SCH (10:00)
[2019-12-14] MEDS: Ascorbic Acid 500 MG TABLET PO SCH (10:00)
[2019-12-14] MEDS: hydrALAZINE 10 MG TABLET PO SCH ×3 (10:00→21:08)
[2019-12-14] MEDS: Insulin LISPRO 300 UNITS/3 ML VIAL SQ SCH ×4 (10:01→21:09)
[2019-12-14] MEDS: Isosorbide MONOnitrate (24 HR) 30 MG TAB.ER.24H PO SCH (10:01)
[2019-12-14 11:36] LABS: Estimated Average Glucose 146 mg/dl
[2019-12-15] MEDS: *HR* Heparin 5,000 UNIT/ML VIAL SQ SCH ×3 (05:43→20:41)
[2019-12-15 05:59] LABS: Basophils % 0.3 %; Eosinophils # 0.4 K/mcL (0.0-0.6); Eosinophils % 4.4 %; Hematocrit 27.4 % (35.3-44.9); Lymphocytes % 10.6 %; Mean Corpuscular HGB Conc 29.2 g/dL (31.6-35.5); Mean Corpuscular Hemoglobin 25.1 pg (28.0-33.3); Mean Corpuscular Volume 85.9 fL (83.0-100.0); Mean Platelet Volume 9.1 fL (9.4-12.4); Monocytes # 0.8 K/mcL (0.0-1.3); Monocytes % 8.8 %; Platelet Count 245 K/mcL (140-400); Red Blood Count 3.19 M/mcL (3.82-4.97); Red Cell Distribution Width 17.9 % (11.5-14.5); Segmented Neutrophils % 74.9 %; White Blood Count 9.4 K/mcL (4.3-11.1)
[2019-12-15 06:20] LABS: Calcium 8.1 mg/dL (8.6-10.3); Potassium 3.6 mEq/L (3.5-5.1)
[2019-12-15] MEDS: Insulin LISPRO 300 UNITS/3 ML VIAL SQ SCH ×4 (07:23→20:46)
[2019-12-15 09:35] LABS: INR 3.2; Prothrombin Time 36.2 Seconds (9.4-12.1)
[2019-12-15] MEDS: Gabapentin 300 MG CAPSULE PO SCH (10:25)
[2019-12-15] MEDS: cefTRIAXone 1,000 MG in 0.9 % Sodium Chloride Mini Bag 100 ML IVPB SCH (10:25)
[2019-12-15] MEDS: Aspirin Enteric Coated 81 MG Tablet PO SCH (10:25)
[2019-12-15] MEDS: lisinopriL 5 MG TABLET PO SCH (10:25)
[2019-12-15] MEDS: Isosorbide MONOnitrate (24 HR) 30 MG TAB.ER.24H PO SCH (10:25)
[2019-12-15] MEDS: Metoprolol XL (24 HR) Succ 50 MG TAB.ER.24H PO SCH (10:26)
[2019-12-15] MEDS: Ascorbic Acid 500 MG TABLET PO SCH (10:26)
[2019-12-15] MEDS: hydrALAZINE 10 MG TABLET PO SCH ×3 (10:26→20:44)
[2019-12-15] MEDS: Sucralfate 1 GM TABLET PO SCH ×4 (10:26→20:40)
[2019-12-15] MEDS ORDERED: *HR* Phytonadione 10 MG/ML AMPUL SQ ONE (11:50)
[2019-12-15] MEDS ORDERED: SODIUM CHLORIDE/NAHCO3/KCL/PEG 4,000 ML SOLN.RECON PO ONE (17:00)
[2019-12-16 02:58] LABS: Basophils % 0.3 %; Eosinophils # 0.4 K/mcL (0.0-0.6); Eosinophils % 3.9 %; Hematocrit 26.4 % (35.3-44.9); Hemoglobin 7.8 g/dL (11.5-15.4); Immature Granulocytes % 0.6 % (0-4); Lymphocytes % 9.2 %; Mean Corpuscular HGB Conc 29.5 g/dL (31.6-35.5); Mean Corpuscular Hemoglobin 25.5 pg (28.0-33.3); Mean Corpuscular Volume 86.3 fL (83.0-100.0); Mean Platelet Volume 9.3 fL (9.4-12.4); Monocytes % 9.1 %; Neutrophils # 8.4 K/mcL (1.6-8.9); Platelet Count 241 K/mcL (140-400); Red Blood Count 3.06 M/mcL (3.82-4.97); Red Cell Distribution Width 17.9 % (11.5-14.5); Segmented Neutrophils % 76.9 %
[2019-12-16 03:03] LABS: INR 2.1; Prothrombin Time 23.5 Seconds (9.4-12.1)
[2019-12-16 03:17] LABS: Calcium 8.1 mg/dL (8.6-10.3); Magnesium 1.8 mg/dL (1.6-2.6); Phosphorous 2.2 mg/dL (2.7-4.5); Potassium 3.8 mEq/L (3.5-5.1)
[2019-12-16 03:19] LABS: % Iron Saturation 7 % (15-50); Iron 18 mcg/dL (50-170); Transferrin 196 mg/dL (203-362)
[2019-12-16 03:38] LABS: Ferritin 97 ng/mL (10-120)
[2019-12-16] MEDS: *HR* Heparin 5,000 UNIT/ML VIAL SQ SCH ×3 (07:26→20:52)
[2019-12-16] MEDS: Sucralfate 1 GM TABLET PO SCH ×4 (07:30→20:47)
[2019-12-16] MEDS: Insulin LISPRO 300 UNITS/3 ML VIAL SQ SCH ×4 (07:59→20:46)
[2019-12-16] MEDS: cefTRIAXone 1,000 MG in 0.9 % Sodium Chloride Mini Bag 100 ML IVPB SCH (08:59)
[2019-12-16] MEDS: Gabapentin 300 MG CAPSULE PO SCH (09:00)
[2019-12-16] MEDS: Ascorbic Acid 500 MG TABLET PO SCH (09:00)
[2019-12-16] MEDS: hydrALAZINE 10 MG TABLET PO SCH ×3 (09:00→20:47)
[2019-12-16] MEDS: Metoprolol XL (24 HR) Succ 50 MG TAB.ER.24H PO SCH (09:00)
[2019-12-16] MEDS: lisinopriL 5 MG TABLET PO SCH (09:00)
[2019-12-16] MEDS: Isosorbide MONOnitrate (24 HR) 30 MG TAB.ER.24H PO SCH (09:00)
[2019-12-16] MEDS: Aspirin Enteric Coated 81 MG Tablet PO SCH (09:00)
[2019-12-16] MEDS ORDERED: 0.9 % Sodium Chloride 250 ML ONE (10:24)
[2019-12-16] MEDS ORDERED: *HR* Propofol 200 MG/20 ML VIAL IVP ONE (13:24)
[2019-12-17] MEDS: *HR* Heparin 5,000 UNIT/ML VIAL SQ SCH (04:47)
[2019-12-17] MEDS: Gabapentin 300 MG CAPSULE PO SCH (09:15)
[2019-12-17] MEDS: Sucralfate 1 GM TABLET PO SCH ×2 (09:15→12:20)
[2019-12-17] MEDS: Aspirin Enteric Coated 81 MG Tablet PO SCH (09:15)
[2019-12-17] MEDS: Isosorbide MONOnitrate (24 HR) 30 MG TAB.ER.24H PO SCH (09:15)
[2019-12-17] MEDS: Metoprolol XL (24 HR) Succ 50 MG TAB.ER.24H PO SCH (09:15)
[2019-12-17] MEDS: Ascorbic Acid 500 MG TABLET PO SCH (09:15)
[2019-12-17] MEDS: hydrALAZINE 10 MG TABLET PO SCH (09:16)
[2019-12-17] MEDS: Insulin LISPRO 300 UNITS/3 ML VIAL SQ SCH ×2 (09:16→12:21)
[2019-12-17] MEDS: cefTRIAXone 1,000 MG in 0.9 % Sodium Chloride Mini Bag 100 ML IVPB SCH (09:16)
[2019-12-17] MEDS: lisinopriL 5 MG TABLET PO SCH (09:16)
[2019-12-17 09:57] LABS: Hemoglobin 7.6 g/dL (11.5-15.4); Red Cell Distribution Width 18.3 % (11.5-14.5)
[2019-12-17 09:59] LABS: Basophils % 0.3 %; Eosinophils # 0.3 K/mcL (0.0-0.6); Eosinophils % 3.8 %; Hematocrit 25.7 % (35.3-44.9); Immature Granulocytes % 0.7 % (0-4); Lymphocytes # 0.8 K/mcL (0.6-4.6); Lymphocytes % 8.6 %; Mean Corpuscular HGB Conc 29.6 g/dL (31.6-35.5); Mean Corpuscular Hemoglobin 25.7 pg (28.0-33.3); Mean Corpuscular Volume 86.8 fL (83.0-100.0); Mean Platelet Volume 9.4 fL (9.4-12.4); Monocytes # 0.8 K/mcL (0.0-1.3); Monocytes % 9.2 %; Neutrophils # 6.7 K/mcL (1.6-8.9); Platelet Count 233 K/mcL (140-400); Red Blood Count 2.96 M/mcL (3.82-4.97); Segmented Neutrophils % 77.4 %; White Blood Count 8.7 K/mcL (4.3-11.1)
[2019-12-17] MEDS ORDERED: Iron Sucrose Complex 400 MG in 0.9 % Sodium Chloride 250 ML IVPB ONE (10:10)
[2019-12-17 10:17] LABS: Calcium 8.4 mg/dL (8.6-10.3); Magnesium 1.8 mg/dL (1.6-2.6); Phosphorous 2.4 mg/dL (2.7-4.5); Potassium 3.6 mEq/L (3.5-5.1)
[2019-12-17 10:35] LABS: Hematocrit 26.1 % (35.3-44.9); Hemoglobin 7.4 g/dL (11.5-15.4)
[2019-12-17] MEDS ORDERED: 0.9 % Sodium Chloride 250 ML ONE (11:56)
[2019-12-17 14:57] VITALS: BP 101/58
== END 2019-12-17 15:43 | DRG 281 ==
LOC: 3BNU → SUATTDRO 18:50
PROVIDERS: ADMIT Internal Medicine; ATTEND Internal Medicine

== ENCOUNTER 2019-12-19 15:27 | Inpatient (IN) ==
[2019-12-19] MEDS ORDERED: 0.9 % Sodium Chloride 1,000 ML IVC STA (15:58)
[2019-12-19 16:20] LABS: Basophils # 0.1 K/mcL (0.0-0.2); Basophils % 0.4 %; Eosinophils # 0.3 K/mcL (0.0-0.6); Hematocrit 27.6 % (35.3-44.9); Immature Granulocytes % 1.5 % (0-4); Lymphocytes # 1.4 K/mcL (0.6-4.6); Mean Corpuscular Hemoglobin 25.4 pg (28.0-33.3); Mean Corpuscular Volume 87.6 fL (83.0-100.0); Mean Platelet Volume 9.5 fL (9.4-12.4); Monocytes % 8.4 %; Neutrophils # 10.6 K/mcL (1.6-8.9); Platelet Count 229 K/mcL (140-400); Red Blood Count 3.15 M/mcL (3.82-4.97); Red Cell Distribution Width 18.4 % (11.5-14.5); Segmented Neutrophils % 77.7 %
[2019-12-19 16:21] LABS: Monocytes # 1.2 K/mcL (0.0-1.3); White Blood Count 13.7 K/mcL (4.3-11.1)
[2019-12-19 16:25] LABS: VBG HCO3 25 mEq/L (21-27); VBG PCO2 52 mmHg (41-51); VBG PH 7.29 pH Units (7.32-7.42); VBG PO2 41 mmHg (25-50)
[2019-12-19 16:27] LABS: INR 1.4; Prothrombin Time 15.6 Seconds (9.4-12.1)
[2019-12-19 16:30] LABS: Activated Partial Thrombo Time 33.5 Seconds (26.0-36.0)
[2019-12-19] MEDS ORDERED: Piperacillin/Tazobactam 3.375 GM in Water for inj. (sterile) 20 ML IVP ONE (16:30)
[2019-12-19] MEDS ORDERED: Vancomycin 1,500 MG/265 ML IV.SOLN IVPB STA (16:34)
[2019-12-19 16:44] LABS: Albumin 2.7 g/dL (3.5-5.7); Albumin/Globulin Ratio 0.8 (1.1-2.2); Bilirubin,Total 0.5 mg/dL (0.3-1.0); Calcium 8.2 mg/dL (8.6-10.3); Globulin 3.3 g/dL (2.4-3.5); Potassium 3.9 mEq/L (3.5-5.1)
[2019-12-19 16:47] LABS: Troponin I 0.15 ng/mL (< 0.04)
[2019-12-19 17:56] LABS: Bilirubin,Urine Small (Negative); Blood,Urine Negative (Negative); Clarity,Urine Turbid (Clear); Color,Urine Dark Yellow (Yellow); Glucose,Urine (UA) Normal (Normal); Ketones,Urine Trace mg/dL (Negative); Leukocyte Esterase,Urine Moderate (Negative); Nitrite,Urine Negative (Negative); Protein,Urine >=300 mg/dL (Neg-Trace); Specific Gravity,Urine 1.027 (1.010-1.025); Urobilinogen,Urine Normal (Normal)
[2019-12-19 17:59] LABS: Squamous Epithelial Cell,Urine Many per lpf (None-Few); WBC,Urine 50-100 per hpf (0-3)
[2019-12-19] MEDS ORDERED: Naloxone 0.4 MG/ML INJ IVP PRN (18:04)
[2019-12-19] MEDS ORDERED: Ondansetron 4 MG/2 ML VIAL IVP PRN (18:04)
[2019-12-19 18:13] LABS: Amorphous Sediment,Urine Moderate per hpf (Few); RBC,Urine 0-3 per hpf (0-3); Renal Epithelial Cells,Urine Few per hpf (None-Few); Transitional Epi Cells,Urine Moderate per hpf (None-Few)
[2019-12-19 18:14] LABS: Bacteria,Urine Moderate per hpf (None-Few)
[2019-12-19] MEDS ORDERED: Dextrose Gel 15 GM/37.5 ML TUBE PO PRN ×2 (18:31)
[2019-12-19] MEDS ORDERED: D5% in Water 1,000 ML IVC PRN (18:31)
[2019-12-19] MEDS ORDERED: *HR* Dextrose 50 % in Water (Syg) 50 ML SYRINGE IVP PRN (18:31)
[2019-12-19] MEDS: Famotidine 20 MG TABLET PO SCH (21:48)
[2019-12-19] MEDS: Insulin LISPRO 300 UNITS/3 ML VIAL SQ SCH (21:51)
[2019-12-20] MEDS ORDERED: Piperacillin/Tazobactam 3.375 GM in 0.9 % Sodium Chloride Mini Bag 100 ML IVPB SCH
[2019-12-20] MEDS: *HR* Heparin 5,000 UNIT/ML VIAL SQ SCH ×2 (05:08→16:43)
[2019-12-20 08:00] LABS: Basophils % 0.3 %; Eosinophils # 0.5 K/mcL (0.0-0.6); Eosinophils % 4.3 %; Hematocrit 25.7 % (35.3-44.9); Hemoglobin 7.5 g/dL (11.5-15.4); Lymphocytes # 0.9 K/mcL (0.6-4.6); Lymphocytes % 7.4 %; Mean Corpuscular HGB Conc 29.2 g/dL (31.6-35.5); Mean Corpuscular Hemoglobin 25.7 pg (28.0-33.3); Mean Platelet Volume 9.5 fL (9.4-12.4); Monocytes # 0.8 K/mcL (0.0-1.3); Monocytes % 7.1 %; Neutrophils # 9.5 K/mcL (1.6-8.9); Platelet Count 203 K/mcL (140-400); Red Blood Count 2.92 M/mcL (3.82-4.97); Red Cell Distribution Width 18.6 % (11.5-14.5); Segmented Neutrophils % 79.9 %; White Blood Count 11.9 K/mcL (4.3-11.1)
[2019-12-20 08:22] LABS: Calcium 8.1 mg/dL (8.6-10.3); Magnesium 1.8 mg/dL (1.6-2.6); Phosphorous 2.8 mg/dL (2.7-4.5)
[2019-12-20] MEDS: cefTRIAXone 1,000 MG in Water for inj. (sterile) 10 ML IVP SCH (08:32)
[2019-12-20] MEDS: Bumetanide 1 MG/4 ML VIAL IVP SCH ×2 (08:32→20:31)
[2019-12-20] MEDS: Insulin LISPRO 300 UNITS/3 ML VIAL SQ SCH ×3 (08:32→16:42)
[2019-12-20] MEDS: Aspirin Enteric Coated 81 MG Tablet PO SCH (08:33)
[2019-12-20] MEDS: Famotidine 20 MG TABLET PO SCH ×2 (08:33→20:32)
[2019-12-20] MEDS: Ascorbic Acid 500 MG TABLET PO SCH (08:33)
[2019-12-20] MEDS: Metoprolol XL (24 HR) Succ 50 MG TAB.ER.24H PO SCH ×2 (08:33→08:39)
[2019-12-21] MEDS: *HR* Heparin 5,000 UNIT/ML VIAL SQ SCH (05:17)
[2019-12-21] MEDS: Metoprolol XL (24 HR) Succ 50 MG TAB.ER.24H PO SCH (08:02)
[2019-12-21] MEDS: Aspirin Enteric Coated 81 MG Tablet PO SCH (08:02)
[2019-12-21] MEDS: Insulin LISPRO 300 UNITS/3 ML VIAL SQ SCH ×3 (08:02→17:39)
[2019-12-21] MEDS: Ascorbic Acid 500 MG TABLET PO SCH (08:02)
[2019-12-21] MEDS: Famotidine 20 MG TABLET PO SCH ×2 (08:02→20:00)
[2019-12-21] MEDS: cefTRIAXone 1,000 MG in Water for inj. (sterile) 10 ML IVP SCH (08:02)
[2019-12-21 08:17] LABS: Basophils % 0.3 %; Hemoglobin 7.5 g/dL (11.5-15.4); Mean Platelet Volume 9.6 fL (9.4-12.4)
[2019-12-21 08:18] LABS: Eosinophils # 0.6 K/mcL (0.0-0.6); Eosinophils % 4.5 %; Hematocrit 25.1 % (35.3-44.9); Immature Granulocytes % 0.7 % (0-4); Lymphocytes # 0.8 K/mcL (0.6-4.6); Lymphocytes % 6.4 %; Mean Corpuscular HGB Conc 29.9 g/dL (31.6-35.5); Mean Corpuscular Hemoglobin 25.9 pg (28.0-33.3); Mean Corpuscular Volume 86.6 fL (83.0-100.0); Monocytes # 0.9 K/mcL (0.0-1.3); Monocytes % 7.6 %; Neutrophils # 9.9 K/mcL (1.6-8.9); Platelet Count 211 K/mcL (140-400); Red Cell Distribution Width 19.1 % (11.5-14.5); Segmented Neutrophils % 80.5 %; White Blood Count 12.3 K/mcL (4.3-11.1)
[2019-12-21 08:28] LABS: Calcium 8.3 mg/dL (8.6-10.3); Magnesium 1.8 mg/dL (1.6-2.6); Phosphorous 3.3 mg/dL (2.7-4.5); Potassium 3.9 mEq/L (3.5-5.1)
[2019-12-21 08:44] LABS: Hypochromasia Present (Not Present); Platelet Estimate Normal (Normal)
[2019-12-21 14:36] LABS: Bilirubin,Urine Negative (Negative); Blood,Urine Negative (Negative); Color,Urine Yellow (Yellow); Glucose,Urine (UA) Normal (Normal); Ketones,Urine Negative (Negative); Leukocyte Esterase,Urine Small (Negative); Nitrite,Urine Negative (Negative); PH,Urine 5.5 pH Units (5.0-8.0); Protein,Urine 100 mg/dL (Neg-Trace); Specific Gravity,Urine 1.018 (1.010-1.025); Urobilinogen,Urine Normal (Normal)
[2019-12-21 14:38] LABS: Clarity,Urine Slightly Cloudy (Clear)
[2019-12-21 14:45] LABS: Sodium, Urine 44.9 mEq/L
[2019-12-21 15:07] LABS: Squamous Epithelial Cell,Urine Few per lpf (None-Few)
[2019-12-21 15:08] LABS: RBC,Urine 0-3 per hpf (0-3); Renal Epithelial Cells,Urine Few per hpf (None-Few); Transitional Epi Cells,Urine Few per hpf (None-Few); WBC,Urine 0-3 per hpf (0-3)
[2019-12-21 17:35] LABS: Protein/Creatinine Ratio,Urine 0.99 mg/mg (0.00-0.20)
[2019-12-21] MEDS: Albumin 25% 25gram/100mL 25 GM/100 ML IV.SOLN IVC SCH ×4 (17:40→22:37)
[2019-12-22 02:19] LABS: Eosinophils % 5.1 %; Mean Platelet Volume 9.4 fL (9.4-12.4)
[2019-12-22 02:20] LABS: Basophils % 0.5 %; Eosinophils # 0.4 K/mcL (0.0-0.6); Hematocrit 24.8 % (35.3-44.9); Hemoglobin 7.4 g/dL (11.5-15.4); Immature Granulocytes % 0.9 % (0-4); Lymphocytes # 0.8 K/mcL (0.6-4.6); Mean Corpuscular HGB Conc 29.8 g/dL (31.6-35.5); Mean Corpuscular Hemoglobin 26.2 pg (28.0-33.3); Mean Corpuscular Volume 87.9 fL (83.0-100.0); Monocytes # 0.8 K/mcL (0.0-1.3); Monocytes % 9.4 %; Platelet Count 196 K/mcL (140-400); Red Blood Count 2.82 M/mcL (3.82-4.97); Red Cell Distribution Width 18.9 % (11.5-14.5); Segmented Neutrophils % 74.1 %; White Blood Count 8.4 K/mcL (4.3-11.1)
[2019-12-22 02:31] LABS: Neutrophils # 6.2 K/mcL (1.6-8.9)
[2019-12-22 02:35] LABS: Calcium 8.9 mg/dL (8.6-10.3); Phosphorous 3.3 mg/dL (2.7-4.5)
[2019-12-22 04:05] LABS: Hypochromasia Present (Not Present); Platelet Estimate Normal (Normal)
[2019-12-22] MEDS: Insulin LISPRO 300 UNITS/3 ML VIAL SQ SCH ×4 (07:46→22:15)
[2019-12-22] MEDS: Famotidine 20 MG TABLET PO SCH (07:48)
[2019-12-22] MEDS: Metoprolol XL (24 HR) Succ 50 MG TAB.ER.24H PO SCH (07:48)
[2019-12-22] MEDS: Aspirin Enteric Coated 81 MG Tablet PO SCH (07:49)
[2019-12-22] MEDS: Ascorbic Acid 500 MG TABLET PO SCH (07:50)
[2019-12-22] MEDS: cefTRIAXone 1,000 MG in Water for inj. (sterile) 10 ML IVP SCH (07:50)
[2019-12-22 10:49] LABS: Hematocrit 27.8 % (35.3-44.9); Hemoglobin 8.1 g/dL (11.5-15.4)
[2019-12-22] MEDS: Piperacillin/Tazobactam 3.375 GM in 0.9 % Sodium Chloride Mini Bag 100 ML IVPB SCH ×2 (11:21→22:13)
[2019-12-22] MEDS: D5% in 0.45% NACL 1,000 ML IVC SCH (11:22)
[2019-12-22] MEDS: Pantoprazole 40 MG VIAL IVP SCH (16:30)
[2019-12-22 16:37] LABS: Hematocrit 26.8 % (35.3-44.9); Hemoglobin 7.9 g/dL (11.5-15.4)
[2019-12-22 22:04] LABS: Hematocrit 27.7 % (35.3-44.9)
[2019-12-23] MEDS: Pantoprazole 40 MG VIAL IVP SCH ×2 (05:54→17:19)
[2019-12-23] MEDS: Insulin LISPRO 300 UNITS/3 ML VIAL SQ SCH ×6 (06:00→21:55)
[2019-12-23] MEDS: D5% in 0.45% NACL 1,000 ML IVC SCH (06:01)
[2019-12-23 08:36] LABS: Red Cell Distribution Width 19.5 % (11.5-14.5)
[2019-12-23 08:37] LABS: Basophils # 0.1 K/mcL (0.0-0.2); Basophils % 0.6 %; Eosinophils # 0.5 K/mcL (0.0-0.6); Hematocrit 27.6 % (35.3-44.9); Hemoglobin 8.2 g/dL (11.5-15.4); Immature Granulocytes % 0.8 % (0-4); Lymphocytes # 0.7 K/mcL (0.6-4.6); Lymphocytes % 8.2 %; Mean Corpuscular HGB Conc 29.7 g/dL (31.6-35.5); Mean Corpuscular Hemoglobin 25.9 pg (28.0-33.3); Mean Corpuscular Volume 87.3 fL (83.0-100.0); Mean Platelet Volume 9.3 fL (9.4-12.4); Monocytes # 0.6 K/mcL (0.0-1.3); Monocytes % 7.5 %; Neutrophils # 6.5 K/mcL (1.6-8.9); Platelet Count 236 K/mcL (140-400); Red Blood Count 3.16 M/mcL (3.82-4.97); Segmented Neutrophils % 76.9 %; White Blood Count 8.5 K/mcL (4.3-11.1)
[2019-12-23 08:55] LABS: Calcium 8.8 mg/dL (8.6-10.3); Potassium 3.8 mEq/L (3.5-5.1)
[2019-12-23] MEDS: Metoprolol XL (24 HR) Succ 50 MG TAB.ER.24H PO SCH (09:01)
[2019-12-23] MEDS: Ascorbic Acid 500 MG TABLET PO SCH (09:02)
[2019-12-23] MEDS: Piperacillin/Tazobactam 3.375 GM in 0.9 % Sodium Chloride Mini Bag 100 ML IVPB SCH ×2 (09:05→21:54)
[2019-12-23] MEDS ORDERED: *HR* Heparin 5,000 UNIT/ML VIAL SQ SCH (18:00)
[2019-12-24] MEDS: D5% in 0.45% NACL 1,000 ML IVC SCH ×2 (02:04→22:40)
[2019-12-24 02:58] LABS: Basophils % 0.4 %; Eosinophils # 0.6 K/mcL (0.0-0.6); Eosinophils % 6.9 %; Hematocrit 25.6 % (35.3-44.9); Hemoglobin 7.6 g/dL (11.5-15.4); Immature Granulocytes % 0.8 % (0-4); Lymphocytes # 0.9 K/mcL (0.6-4.6); Lymphocytes % 9.6 %; Mean Corpuscular HGB Conc 29.7 g/dL (31.6-35.5); Mean Corpuscular Hemoglobin 25.8 pg (28.0-33.3); Mean Corpuscular Volume 86.8 fL (83.0-100.0); Mean Platelet Volume 9.1 fL (9.4-12.4); Monocytes # 0.8 K/mcL (0.0-1.3); Monocytes % 8.8 %; Neutrophils # 6.7 K/mcL (1.6-8.9); Platelet Count 246 K/mcL (140-400); Red Blood Count 2.95 M/mcL (3.82-4.97); Red Cell Distribution Width 19.9 % (11.5-14.5); Segmented Neutrophils % 73.5 %; White Blood Count 9.1 K/mcL (4.3-11.1)
[2019-12-24 03:17] LABS: Calcium 8.7 mg/dL (8.6-10.3); Potassium 3.7 mEq/L (3.5-5.1)
[2019-12-24] MEDS: Pantoprazole 40 MG VIAL IVP SCH ×2 (05:23→18:00)
[2019-12-24] MEDS: Insulin LISPRO 300 UNITS/3 ML VIAL SQ SCH ×4 (08:06→21:06)
[2019-12-24] MEDS: Metoprolol XL (24 HR) Succ 50 MG TAB.ER.24H PO SCH (08:06)
[2019-12-24] MEDS: Ascorbic Acid 500 MG TABLET PO SCH (08:06)
[2019-12-24] MEDS: Piperacillin/Tazobactam 3.375 GM in 0.9 % Sodium Chloride Mini Bag 100 ML IVPB SCH ×2 (10:17→22:40)
[2019-12-24] MEDS: QUEtiapine Fumarate 25 MG TABLET PO SCH (20:54)
[2019-12-25] MEDS: Pantoprazole 40 MG VIAL IVP SCH ×2 (05:07→17:35)
[2019-12-25 06:02] LABS: Basophils # 0.1 K/mcL (0.0-0.2); Basophils % 0.6 %; Eosinophils # 0.5 K/mcL (0.0-0.6); Eosinophils % 6.6 %; Hematocrit 26.6 % (35.3-44.9); Hemoglobin 7.7 g/dL (11.5-15.4); Immature Granulocytes % 0.7 % (0-4); Lymphocytes # 0.9 K/mcL (0.6-4.6); Lymphocytes % 10.6 %; Mean Corpuscular HGB Conc 28.9 g/dL (31.6-35.5); Mean Corpuscular Hemoglobin 25.2 pg (28.0-33.3); Mean Corpuscular Volume 86.9 fL (83.0-100.0); Mean Platelet Volume 8.9 fL (9.4-12.4); Monocytes # 0.7 K/mcL (0.0-1.3); Neutrophils # 5.8 K/mcL (1.6-8.9); Platelet Count 243 K/mcL (140-400); Red Blood Count 3.06 M/mcL (3.82-4.97); Segmented Neutrophils % 72.5 %
[2019-12-25 06:21] LABS: Albumin/Globulin Ratio 0.9 (1.1-2.2); Bilirubin,Total 0.4 mg/dL (0.3-1.0); Calcium 8.4 mg/dL (8.6-10.3); Globulin 3.2 g/dL (2.4-3.5); Potassium 3.6 mEq/L (3.5-5.1); Total Protein 6.2 g/dL (6.4-8.9)
[2019-12-25 06:23] LABS: Anisocytosis 2+ (Not Present); Macrocytosis Present (Not Present); Microcytosis Present (Not Present); Platelet Estimate Normal (Normal); Polychromasia 1+ (Not Present)
[2019-12-25] MEDS: Insulin LISPRO 300 UNITS/3 ML VIAL SQ SCH ×4 (07:49→20:34)
[2019-12-25] MEDS: Metoprolol XL (24 HR) Succ 50 MG TAB.ER.24H PO SCH (08:49)
[2019-12-25] MEDS: Furosemide 20 MG TABLET PO SCH ×2 (08:49→15:47)
[2019-12-25] MEDS: Ascorbic Acid 500 MG TABLET PO SCH (08:49)
[2019-12-25] MEDS: Piperacillin/Tazobactam 3.375 GM in 0.9 % Sodium Chloride Mini Bag 100 ML IVPB SCH ×2 (09:12→17:38)
[2019-12-25] MEDS ORDERED: QUEtiapine Fumarate 25 MG TABLET PO ONE (15:00)
[2019-12-25] MEDS ORDERED: Piperacillin/Tazobactam 3.375 GM VIAL ONE (17:05)
[2019-12-25] MEDS: D5% in 0.45% NACL 1,000 ML IVC SCH (18:03)
[2019-12-26] MEDS: Piperacillin/Tazobactam 3.375 GM in 0.9 % Sodium Chloride Mini Bag 100 ML IVPB SCH ×4 (00:26→23:55)
[2019-12-26] MEDS: QUEtiapine Fumarate 25 MG TABLET PO SCH ×2 (00:26→21:36)
[2019-12-26 02:17] LABS: Basophils # 0.1 K/mcL (0.0-0.2); Basophils % 0.7 %; Eosinophils # 0.6 K/mcL (0.0-0.6); Eosinophils % 7.1 %; Hematocrit 24.5 % (35.3-44.9); Hemoglobin 7.2 g/dL (11.5-15.4); Immature Granulocytes % 0.8 % (0-4); Lymphocytes # 0.9 K/mcL (0.6-4.6); Mean Corpuscular HGB Conc 29.4 g/dL (31.6-35.5); Mean Corpuscular Hemoglobin 25.8 pg (28.0-33.3); Mean Corpuscular Volume 87.8 fL (83.0-100.0); Mean Platelet Volume 8.7 fL (9.4-12.4); Monocytes # 0.8 K/mcL (0.0-1.3); Monocytes % 8.9 %; Neutrophils # 6.1 K/mcL (1.6-8.9); Platelet Count 228 K/mcL (140-400); Red Blood Count 2.79 M/mcL (3.82-4.97); Red Cell Distribution Width 20.4 % (11.5-14.5); Segmented Neutrophils % 71.5 %; White Blood Count 8.5 K/mcL (4.3-11.1)
[2019-12-26 02:31] LABS: Calcium 8.3 mg/dL (8.6-10.3); Potassium 3.3 mEq/L (3.5-5.1)
[2019-12-26] MEDS: Pantoprazole 40 MG VIAL IVP SCH ×2 (05:56→17:25)
[2019-12-26] MEDS ORDERED: Potassium Chloride Elixir 20 MEQ/15 ML UDC PO ONE (07:11)
[2019-12-26] MEDS: Furosemide 20 MG TABLET PO SCH ×2 (07:57→15:06)
[2019-12-26] MEDS: Ascorbic Acid 500 MG TABLET PO SCH ×2 (07:57→15:06)
[2019-12-26] MEDS: Lactobacillus 1 EACH CAP.SPRINK PO SCH ×2 (07:57→15:07)
[2019-12-26] MEDS: Metoprolol XL (24 HR) Succ 50 MG TAB.ER.24H PO SCH ×2 (07:58→15:06)
[2019-12-26] MEDS: Insulin LISPRO 300 UNITS/3 ML VIAL SQ SCH ×4 (07:58→21:38)
[2019-12-26] MEDS: D5% in 0.45% NACL 1,000 ML IVC SCH (15:07)
[2019-12-26] MEDS: Acetaminophen 325 MG TABLET PO PRN (17:24)
[2019-12-27 02:29] LABS: Basophils % 0.5 %; Eosinophils % 7.1 %
[2019-12-27 02:31] LABS: Basophils # 0.1 K/mcL (0.0-0.2); Eosinophils # 0.7 K/mcL (0.0-0.6); Hematocrit 25.9 % (35.3-44.9); Hemoglobin 7.5 g/dL (11.5-15.4); Immature Granulocytes % 0.8 % (0-4); Lymphocytes # 1.1 K/mcL (0.6-4.6); Lymphocytes % 11.9 %; Mean Corpuscular Hemoglobin 25.5 pg (28.0-33.3); Mean Corpuscular Volume 88.1 fL (83.0-100.0); Monocytes # 0.8 K/mcL (0.0-1.3); Monocytes % 8.3 %; Neutrophils # 6.5 K/mcL (1.6-8.9); Platelet Count 243 K/mcL (140-400); Red Blood Count 2.94 M/mcL (3.82-4.97); Red Cell Distribution Width 20.6 % (11.5-14.5); Segmented Neutrophils % 71.4 %; White Blood Count 9.1 K/mcL (4.3-11.1)
[2019-12-27 02:44] LABS: Calcium 8.3 mg/dL (8.6-10.3); Potassium 3.7 mEq/L (3.5-5.1)
[2019-12-27] MEDS: Pantoprazole 40 MG VIAL IVP SCH ×2 (06:01→17:36)
[2019-12-27] MEDS: Insulin LISPRO 300 UNITS/3 ML VIAL SQ SCH ×4 (07:12→20:59)
[2019-12-27] MEDS: Lactobacillus 1 EACH CAP.SPRINK PO SCH (07:49)
[2019-12-27] MEDS: Ascorbic Acid 500 MG TABLET PO SCH (07:49)
[2019-12-27] MEDS: Furosemide 20 MG TABLET PO SCH ×2 (07:49→17:36)
[2019-12-27] MEDS: Metoprolol XL (24 HR) Succ 50 MG TAB.ER.24H PO SCH (07:50)
[2019-12-27] MEDS: Piperacillin/Tazobactam 3.375 GM in 0.9 % Sodium Chloride Mini Bag 100 ML IVPB SCH ×2 (07:50→15:26)
[2019-12-27] MEDS ORDERED: QUEtiapine Fumarate 25 MG TABLET PO ONE (12:12)
[2019-12-27] MEDS: D5% in 0.45% NACL 1,000 ML IVC SCH (12:33)
[2019-12-27] MEDS: Acetaminophen 325 MG TABLET PO PRN (12:36)
[2019-12-27] MEDS ORDERED: QUEtiapine Fumarate 25 MG TABLET PO PRN (16:00)
[2019-12-28] MEDS: Piperacillin/Tazobactam 3.375 GM in 0.9 % Sodium Chloride Mini Bag 100 ML IVPB SCH ×2 (01:11→09:29)
[2019-12-28 02:26] LABS: Basophils # 0.1 K/mcL (0.0-0.2); Basophils % 0.7 %; Eosinophils # 0.6 K/mcL (0.0-0.6); Eosinophils % 6.2 %; Hematocrit 26.9 % (35.3-44.9); Hemoglobin 7.8 g/dL (11.5-15.4); Lymphocytes # 1.2 K/mcL (0.6-4.6); Lymphocytes % 12.9 %; Mean Corpuscular Hemoglobin 25.7 pg (28.0-33.3); Mean Corpuscular Volume 88.5 fL (83.0-100.0); Monocytes # 0.8 K/mcL (0.0-1.3); Monocytes % 8.7 %; Neutrophils # 6.4 K/mcL (1.6-8.9); Platelet Count 241 K/mcL (140-400); Red Blood Count 3.04 M/mcL (3.82-4.97); Red Cell Distribution Width 21.2 % (11.5-14.5); Segmented Neutrophils % 70.5 %; White Blood Count 9.1 K/mcL (4.3-11.1)
[2019-12-28 02:46] LABS: Calcium 8.7 mg/dL (8.6-10.3); Potassium 3.7 mEq/L (3.5-5.1)
[2019-12-28] MEDS: Pantoprazole 40 MG VIAL IVP SCH ×2 (05:23→16:49)
[2019-12-28] MEDS: Insulin LISPRO 300 UNITS/3 ML VIAL SQ SCH ×4 (08:09→21:08)
[2019-12-28] MEDS: Furosemide 20 MG TABLET PO SCH ×2 (09:29→16:48)
[2019-12-28] MEDS: Metoprolol XL (24 HR) Succ 50 MG TAB.ER.24H PO SCH (09:29)
[2019-12-28] MEDS: Lactobacillus 1 EACH CAP.SPRINK PO SCH (09:29)
[2019-12-28] MEDS: Ascorbic Acid 500 MG TABLET PO SCH (09:29)
[2019-12-28] MEDS: D5% in 0.45% NACL 1,000 ML IVC SCH (09:30)
[2019-12-28] MEDS ORDERED: Fosfomycin Tromethamine 3 GM Packet PO ONE (12:15)
[2019-12-29 01:38] LABS: Basophils # 0.1 K/mcL (0.0-0.2); Basophils % 0.9 %; Eosinophils # 0.5 K/mcL (0.0-0.6); Eosinophils % 5.2 %; Hematocrit 29.6 % (35.3-44.9); Hemoglobin 8.6 g/dL (11.5-15.4); Lymphocytes # 1.3 K/mcL (0.6-4.6); Lymphocytes % 12.5 %; Mean Corpuscular HGB Conc 29.1 g/dL (31.6-35.5); Mean Corpuscular Hemoglobin 25.7 pg (28.0-33.3); Mean Corpuscular Volume 88.4 fL (83.0-100.0); Monocytes # 0.8 K/mcL (0.0-1.3); Monocytes % 8.1 %; Neutrophils # 7.5 K/mcL (1.6-8.9); Platelet Count 276 K/mcL (140-400); Red Blood Count 3.35 M/mcL (3.82-4.97); Red Cell Distribution Width 21.2 % (11.5-14.5); Segmented Neutrophils % 72.3 %; White Blood Count 10.4 K/mcL (4.3-11.1)
[2019-12-29 02:04] LABS: Calcium 8.7 mg/dL (8.6-10.3); Potassium 3.6 mEq/L (3.5-5.1)
[2019-12-29] MEDS: Pantoprazole 40 MG VIAL IVP SCH (06:25)
[2019-12-29] MEDS: Insulin LISPRO 300 UNITS/3 ML VIAL SQ SCH (08:05)
[2019-12-29 08:06] VITALS: BP 148/82
[2019-12-29] MEDS: Lactobacillus 1 EACH CAP.SPRINK PO SCH (08:06)
[2019-12-29] MEDS: Ascorbic Acid 500 MG TABLET PO SCH (08:06)
[2019-12-29] MEDS: Furosemide 20 MG TABLET PO SCH (08:06)
[2019-12-29] MEDS: Metoprolol XL (24 HR) Succ 50 MG TAB.ER.24H PO SCH (08:06)
== END 2019-12-29 11:04 | DRG 853 ==
LOC: EMEROOARM 15:27 → 2ANU 15:27 → SUATTDRO 18:12 → 2ANU 19:38
PROVIDERS: ADMIT Internal Medicine; ATTEND Family Medicine

== ENCOUNTER 2020-01-17 08:51 | Inpatient (IN) ==
[2020-01-17] MEDS ORDERED: Isovue-370 500 ML BOTTLE IVP ONE (09:00)
[2020-01-17 09:31] LABS: Bilirubin,Urine Negative (Negative); Blood,Urine Negative (Negative); Clarity,Urine Clear (Clear); Color,Urine Light-Yellow (Yellow); Glucose,Urine (UA) Normal (Normal); Ketones,Urine Negative (Negative); Leukocyte Esterase,Urine Large (Negative); Mucus,Urine Few per lpf (None-Few); Nitrite,Urine Negative (Negative); Protein,Urine 50 mg/dL (Neg-Trace); Renal Epithelial Cells,Urine Moderate per hpf (None-Few); Specific Gravity,Urine 1.011 (1.010-1.025); Squamous Epithelial Cell,Urine Few per hpf (None-Few); Transitional Epi Cells,Urine Few per hpf (None-Few); Urobilinogen,Urine Normal (Normal); WBC,Urine 50-100 per hpf (0-3)
[2020-01-17 09:36] LABS: Red Cell Distribution Width 22.5 % (11.5-14.5)
[2020-01-17 09:37] LABS: Basophils % 0.5 %; Eosinophils # 0.2 K/mcL (0.0-0.6); Eosinophils % 2.8 %; Hematocrit 27.2 % (35.3-44.9); Hemoglobin 7.9 g/dL (11.5-15.4); Immature Granulocytes % 0.4 % (0-4); Lymphocytes # 0.7 K/mcL (0.6-4.6); Lymphocytes % 8.9 %; Mean Corpuscular Hemoglobin 26.7 pg (28.0-33.3); Mean Corpuscular Volume 91.9 fL (83.0-100.0); Monocytes # 0.7 K/mcL (0.0-1.3); Monocytes % 9.6 %; Neutrophils # 5.8 K/mcL (1.6-8.9); Platelet Count 216 K/mcL (140-400); Red Blood Count 2.96 M/mcL (3.82-4.97); Segmented Neutrophils % 77.8 %; White Blood Count 7.5 K/mcL (4.3-11.1)
[2020-01-17 09:48] LABS: INR 1.4; Prothrombin Time 15.7 Seconds (9.4-12.1)
[2020-01-17 09:51] LABS: Activated Partial Thrombo Time 33.6 Seconds (26.0-36.0)
[2020-01-17 09:57] LABS: Albumin 2.8 g/dL (3.5-5.7); Albumin/Globulin Ratio 0.8 (1.1-2.2); Bilirubin,Direct 0.2 mg/dL (0.0-0.2); Bilirubin,Indirect 0.3 mg/dL (0.0-1.0); Bilirubin,Total 0.5 mg/dL (0.3-1.0); Calcium 8.5 mg/dL (8.6-10.3); Globulin 3.7 g/dL (2.4-3.5); Potassium 4.7 mEq/L (3.5-5.1); Total Protein 6.5 g/dL (6.4-8.9)
[2020-01-17 10:03] LABS: Troponin I 0.21 ng/mL (< 0.04)
[2020-01-17] MEDS ORDERED: Aspirin 81 MG TAB.CHEW PO ONE (10:11)
[2020-01-17 10:23] LABS: Anisocytosis 1+ (Not Present); Platelet Estimate Normal (Normal)
[2020-01-17] MEDS ORDERED: Furosemide 40 MG/4 ML VIAL IVP ONE (10:30)
[2020-01-17] MEDS ORDERED: Albumin 25% 12.5gm/50mL 12.5 GM/50 ML IV.SOLN IVPB ONE (11:10)
[2020-01-17] MEDS ORDERED: Naloxone 0.4 MG/ML INJ IVP PRN (11:11)
[2020-01-17] MEDS ORDERED: Ondansetron 4 MG/2 ML VIAL IVP PRN (11:11)
[2020-01-17] MEDS ORDERED: Dextrose Gel 15 GM/37.5 ML TUBE PO PRN ×2 (11:14)
[2020-01-17] MEDS ORDERED: *HR* Dextrose 50 % in Water (Vial) 50 ML VIAL IVP PRN (11:14)
[2020-01-17] MEDS ORDERED: D5% in Water 1,000 ML IVC PRN (11:14)
[2020-01-17] MEDS ORDERED: Sennosides 8.6 MG TABLET PO PRN (12:00)
[2020-01-17] MEDS: Insulin LISPRO 300 UNITS/3 ML VIAL SQ SCH ×2 (12:26→22:04)
[2020-01-17] MEDS: *HR* Heparin 5,000 UNIT/ML VIAL SQ SCH (18:58)
[2020-01-17] MEDS: Sucralfate 1 GM TABLET PO SCH (18:58)
[2020-01-17] MEDS ORDERED: Furosemide 40 MG/4 ML VIAL IVP SCH (21:00)
[2020-01-17] MEDS ORDERED: Insulin DETEMIR 100 UNIT/ML X5UNITS SQ SCH (21:00)
[2020-01-17] MEDS: Famotidine 20 MG TABLET PO SCH (22:04)
[2020-01-17] MEDS: Acetaminophen 325 MG TABLET PO PRN (22:35)
[2020-01-18 01:12] LABS: Basophils % 0.6 %; Eosinophils # 0.3 K/mcL (0.0-0.6); Eosinophils % 3.5 %; Hematocrit 26.6 % (35.3-44.9); Hemoglobin 7.8 g/dL (11.5-15.4); Immature Granulocytes % 0.3 % (0-4); Lymphocytes % 14.2 %; Mean Corpuscular HGB Conc 29.3 g/dL (31.6-35.5); Mean Corpuscular Hemoglobin 26.7 pg (28.0-33.3); Mean Corpuscular Volume 91.1 fL (83.0-100.0); Monocytes # 0.7 K/mcL (0.0-1.3); Monocytes % 9.3 %; Neutrophils # 5.1 K/mcL (1.6-8.9); Platelet Count 217 K/mcL (140-400); Red Blood Count 2.92 M/mcL (3.82-4.97); Red Cell Distribution Width 22.4 % (11.5-14.5); Segmented Neutrophils % 72.1 %; White Blood Count 7.1 K/mcL (4.3-11.1)
[2020-01-18 01:29] LABS: Calcium 8.7 mg/dL (8.6-10.3); Magnesium 2.1 mg/dL (1.6-2.6); Potassium 4.7 mEq/L (3.5-5.1)
[2020-01-18] MEDS: *HR* Heparin 5,000 UNIT/ML VIAL SQ SCH ×2 (04:08→17:25)
[2020-01-18] MEDS: Insulin LISPRO 300 UNITS/3 ML VIAL SQ SCH ×3 (09:25→16:43)
[2020-01-18] MEDS: Ascorbic Acid 500 MG TABLET PO SCH (09:57)
[2020-01-18] MEDS: Sucralfate 1 GM TABLET PO SCH ×3 (09:57→15:47)
[2020-01-18] MEDS: Metoprolol XL (24 HR) Succ 50 MG TAB.ER.24H PO SCH (09:57)
[2020-01-18] MEDS: Multivit/Ca/Min/Fe/FA 1 TAB TABLET PO SCH (09:57)
[2020-01-18] MEDS: Famotidine 20 MG TABLET PO SCH (09:57)
[2020-01-18] MEDS: lisinopriL 5 MG TABLET PO SCH (09:57)
[2020-01-18] MEDS: Furosemide 40 MG/4 ML VIAL IVP SCH ×2 (09:58→17:26)
[2020-01-18] MEDS: Albumin 25% 25gram/100mL 25 GM/100 ML IV.SOLN IVPB SCH (15:49)
[2020-01-19 03:28] LABS: Hematocrit 27.3 % (35.3-44.9); Hemoglobin 8.1 g/dL (11.5-15.4); Mean Corpuscular HGB Conc 29.7 g/dL (31.6-35.5); Mean Corpuscular Hemoglobin 26.6 pg (28.0-33.3); Mean Corpuscular Volume 89.5 fL (83.0-100.0); Mean Platelet Volume 9.2 fL (9.4-12.4); Platelet Count 229 K/mcL (140-400); Red Blood Count 3.05 M/mcL (3.82-4.97); Red Cell Distribution Width 22.1 % (11.5-14.5); White Blood Count 6.2 K/mcL (4.3-11.1)
[2020-01-19 03:53] LABS: Calcium 8.9 mg/dL (8.6-10.3); Potassium 4.7 mEq/L (3.5-5.1)
[2020-01-19] MEDS: *HR* Heparin 5,000 UNIT/ML VIAL SQ SCH ×2 (05:43→16:50)
[2020-01-19] MEDS: Insulin LISPRO 300 UNITS/3 ML VIAL SQ SCH ×3 (08:09→16:51)
[2020-01-19] MEDS: Multivit/Ca/Min/Fe/FA 1 TAB TABLET PO SCH (08:18)
[2020-01-19] MEDS: Metoprolol XL (24 HR) Succ 50 MG TAB.ER.24H PO SCH (08:18)
[2020-01-19] MEDS: Sucralfate 1 GM TABLET PO SCH ×3 (08:18→16:51)
[2020-01-19] MEDS: Ascorbic Acid 500 MG TABLET PO SCH (08:18)
[2020-01-19] MEDS: Furosemide 40 MG/4 ML VIAL IVP SCH ×2 (08:18→16:50)
[2020-01-19] MEDS: lisinopriL 5 MG TABLET PO SCH (08:18)
[2020-01-19] MEDS: Albumin 25% 25gram/100mL 25 GM/100 ML IV.SOLN IVPB SCH ×2 (08:19→16:48)
[2020-01-19 10:44] LABS: Total Protein,Peritoneal Fluid 3.5 g/dL
[2020-01-19 10:54] LABS: RBC,Peritoneal Fluid < 2000 RBC/mcL
[2020-01-19 11:46] LABS: Appearance of Peritoneal Fl CLEAR (Clear)
[2020-01-19 13:42] LABS: Basophils,Peritoneal Fluid 0 %; Eosinophils,Peritoneal Fluid 0 %
[2020-01-19] MEDS: Famotidine 20 MG TABLET PO SCH (20:07)
[2020-01-20 03:36] LABS: Hematocrit 27.7 % (35.3-44.9); Hemoglobin 8.2 g/dL (11.5-15.4); Mean Corpuscular HGB Conc 29.6 g/dL (31.6-35.5); Mean Corpuscular Hemoglobin 26.7 pg (28.0-33.3); Mean Corpuscular Volume 90.2 fL (83.0-100.0); Mean Platelet Volume 9.2 fL (9.4-12.4); Platelet Count 221 K/mcL (140-400); Red Blood Count 3.07 M/mcL (3.82-4.97); Red Cell Distribution Width 21.6 % (11.5-14.5); White Blood Count 6.3 K/mcL (4.3-11.1)
[2020-01-20 03:54] LABS: Calcium 8.8 mg/dL (8.6-10.3); Potassium 4.8 mEq/L (3.5-5.1)
[2020-01-20] MEDS: *HR* Heparin 5,000 UNIT/ML VIAL SQ SCH ×2 (05:22→17:06)
[2020-01-20] MEDS: Insulin LISPRO 300 UNITS/3 ML VIAL SQ SCH ×3 (07:27→16:20)
[2020-01-20] MEDS: Sucralfate 1 GM TABLET PO SCH ×3 (07:41→16:20)
[2020-01-20] MEDS: Ascorbic Acid 500 MG TABLET PO SCH (07:41)
[2020-01-20] MEDS: Multivit/Ca/Min/Fe/FA 1 TAB TABLET PO SCH (07:41)
[2020-01-20] MEDS: Albumin 25% 25gram/100mL 25 GM/100 ML IV.SOLN IVPB SCH ×2 (07:42→16:20)
[2020-01-20] MEDS: Furosemide 40 MG/4 ML VIAL IVP SCH ×2 (07:43→16:20)
[2020-01-20] MEDS: lisinopriL 5 MG TABLET PO SCH (07:45)
[2020-01-20] MEDS: Metoprolol XL (24 HR) Succ 50 MG TAB.ER.24H PO SCH (07:45)
[2020-01-20] MEDS: Acetaminophen 325 MG TABLET PO PRN (17:06)
[2020-01-20] MEDS: Famotidine 20 MG TABLET PO SCH (19:54)
[2020-01-21 00:44] LABS: Fluid Source for Albumin ASCITES
[2020-01-21 03:36] LABS: Basophils % 0.3 %; Eosinophils # 0.2 K/mcL (0.0-0.6); Hematocrit 25.1 % (35.3-44.9); Hemoglobin 7.5 g/dL (11.5-15.4); Immature Granulocytes % 0.3 % (0-4); Lymphocytes # 0.9 K/mcL (0.6-4.6); Lymphocytes % 15.3 %; Mean Corpuscular HGB Conc 29.9 g/dL (31.6-35.5); Mean Corpuscular Hemoglobin 26.7 pg (28.0-33.3); Mean Corpuscular Volume 89.3 fL (83.0-100.0); Mean Platelet Volume 9.2 fL (9.4-12.4); Monocytes # 0.6 K/mcL (0.0-1.3); Monocytes % 10.4 %; Neutrophils # 4.2 K/mcL (1.6-8.9); Platelet Count 202 K/mcL (140-400); Red Blood Count 2.81 M/mcL (3.82-4.97); Red Cell Distribution Width 21.7 % (11.5-14.5); Segmented Neutrophils % 69.7 %
[2020-01-21 03:54] LABS: Calcium 8.7 mg/dL (8.6-10.3); Potassium 4.5 mEq/L (3.5-5.1)
[2020-01-21] MEDS: *HR* Heparin 5,000 UNIT/ML VIAL SQ SCH ×2 (05:09→16:56)
[2020-01-21] MEDS: Insulin LISPRO 300 UNITS/3 ML VIAL SQ SCH ×3 (07:49→16:56)
[2020-01-21] MEDS: Ascorbic Acid 500 MG TABLET PO SCH (07:52)
[2020-01-21] MEDS: lisinopriL 5 MG TABLET PO SCH (07:52)
[2020-01-21] MEDS: Sucralfate 1 GM TABLET PO SCH ×3 (07:52→16:55)
[2020-01-21] MEDS: Metoprolol XL (24 HR) Succ 50 MG TAB.ER.24H PO SCH (07:52)
[2020-01-21] MEDS: Furosemide 40 MG/4 ML VIAL IVP SCH (07:52)
[2020-01-21] MEDS: Multivit/Ca/Min/Fe/FA 1 TAB TABLET PO SCH (07:52)
[2020-01-21] MEDS: Acetaminophen 325 MG TABLET PO PRN (15:51)
[2020-01-21 19:27] VITALS: BP 106/71
[2020-01-22] MEDS ORDERED: Furosemide 40 MG TABLET PO SCH (09:00)
== END 2020-01-21 19:43 | disposition home health service (06) | DRG 291 ==
LOC: 2ANU 08:51 → EMEROOARM 08:51 → 2ANU 12:27 → SUATTDRO 01-18 11:19
PROVIDERS: ADMIT Internal Medicine; ATTEND Internal Medicine
PROC: IRDRAIN (2020-01-18 13:00)

== ENCOUNTER 2020-02-15 14:23 | Inpatient (IN) ==
[2020-02-15] MEDS ORDERED: 0.9 % Sodium Chloride 1,000 ML IVC SCH (14:30)
[2020-02-15] MEDS ORDERED: 0.9 % Sodium Chloride 1,000 ML IVC ONE (14:44)
[2020-02-15 15:24] LABS: Albumin 3.2 g/dL (3.5-5.7); Bilirubin,Total 0.3 mg/dL (0.3-1.0); Calcium 8.6 mg/dL (8.6-10.3); Globulin 3.1 g/dL (2.4-3.5); Potassium 5.8 mEq/L (3.5-5.1); Total Protein 6.3 g/dL (6.4-8.9); Troponin I 0.04 ng/mL (< 0.04)
[2020-02-15] MEDS ORDERED: Calcium Gluconate 1,000 MG/10 ML VIAL IVP ONE (16:16)
[2020-02-15] MEDS ORDERED: Calcium Gluconate 1gm/50mL 1 GM/50 ML BAG IVPB ONE (16:17)
[2020-02-15] MEDS ORDERED: 0.9 % Sodium Chloride 500 ML ONE (16:29)
[2020-02-15] MEDS ORDERED: Sennosides 8.6 MG TABLET PO PRN (17:59)
[2020-02-15] MEDS ORDERED: *HR* FentaNYL (PF) 100 MCG/2 ML VIAL IVP ONE (18:23)
[2020-02-15 20:58] LABS: Hematocrit 25.2 % (35.3-44.9); Hemoglobin 7.3 g/dL (11.5-15.4)
[2020-02-15 21:19] LABS: Calcium 8.3 mg/dL (8.6-10.3); Potassium 5.3 mEq/L (3.5-5.1)
[2020-02-15 22:01] LABS: Troponin I 0.04 ng/mL (< 0.04)
[2020-02-16 01:48] LABS: Hemoglobin 7.6 g/dL (11.5-15.4); Immature Granulocytes % 0.3 % (0-4); Monocytes % 8.7 %
[2020-02-16 01:50] LABS: Basophils # 0.1 K/mcL (0.0-0.2); Basophils % 0.9 %; Eosinophils # 0.2 K/mcL (0.0-0.6); Eosinophils % 3.2 %; Hematocrit 26.9 % (35.3-44.9); Lymphocytes # 1.5 K/mcL (0.6-4.6); Lymphocytes % 22.6 %; Mean Corpuscular HGB Conc 28.3 g/dL (31.6-35.5); Mean Corpuscular Hemoglobin 29.6 pg (28.0-33.3); Mean Corpuscular Volume 104.7 fL (83.0-100.0); Mean Platelet Volume 9.6 fL (9.4-12.4); Monocytes # 0.6 K/mcL (0.0-1.3); Neutrophils # 4.4 K/mcL (1.6-8.9); Platelet Count 167 K/mcL (140-400); Red Blood Count 2.57 M/mcL (3.82-4.97); Segmented Neutrophils % 64.3 %; White Blood Count 6.8 K/mcL (4.3-11.1)
[2020-02-16 02:00] LABS: Calcium 8.5 mg/dL (8.6-10.3)
[2020-02-16 02:14] LABS: Anisocytosis 2+ (Not Present); Platelet Estimate Normal (Normal)
[2020-02-16 02:15] LABS: Macrocytosis Present (Not Present)
[2020-02-16] MEDS ORDERED: Calcium Gluconate 1gm/50mL 1 GM/50 ML BAG IVPB ONE (07:57)
[2020-02-16] MEDS ORDERED: Sodium Bicarbonate 150 MEQ in D5% in Water 1,000 ML IVC SCH (08:00)
[2020-02-16 08:54] LABS: Basophils # 0.1 K/mcL (0.0-0.2); Basophils % 0.7 %; Eosinophils # 0.2 K/mcL (0.0-0.6); Eosinophils % 3.4 %; Hematocrit 23.6 % (35.3-44.9); Hemoglobin 6.9 g/dL (11.5-15.4); Immature Granulocytes % 0.3 % (0-4); Lymphocytes # 1.4 K/mcL (0.6-4.6); Lymphocytes % 19.7 %; Mean Corpuscular HGB Conc 29.2 g/dL (31.6-35.5); Mean Corpuscular Hemoglobin 28.8 pg (28.0-33.3); Mean Platelet Volume 9.8 fL (9.4-12.4); Monocytes # 0.6 K/mcL (0.0-1.3); Monocytes % 7.8 %; Neutrophils # 4.9 K/mcL (1.6-8.9); Platelet Count 211 K/mcL (140-400); Red Cell Distribution Width 21.8 % (11.5-14.5); Segmented Neutrophils % 68.1 %; White Blood Count 7.2 K/mcL (4.3-11.1)
[2020-02-16] MEDS ORDERED: Metoprolol XL (24 HR) Succ 50 MG TAB.ER.24H PO SCH (09:00)
[2020-02-16 09:03] LABS: Mean Corpuscular Volume 98.3 fL (83.0-100.0)
[2020-02-16] MEDS: Metoprolol XL (24 HR) Succ 50 MG TAB.ER.24H PO SCH (09:06)
[2020-02-16] MEDS: Sucralfate 1 GM TABLET PO SCH ×3 (09:07→15:41)
[2020-02-16 09:12] LABS: Calcium 8.7 mg/dL (8.6-10.3); Potassium 5.5 mEq/L (3.5-5.1)
[2020-02-16 09:21] LABS: Uric Acid 9.3 mg/dL (2.3-7.6)
[2020-02-16] MEDS ORDERED: *HR* Dextrose 50 % in Water (Vial) 50 ML VIAL IVP PRN (10:26)
[2020-02-16] MEDS ORDERED: *HR* Dextrose 50 % in Water (Vial) 50 ML VIAL ONE (10:26)
[2020-02-16] MEDS: *HR* Dextrose 50 % in Water (Vial) 50 ML VIAL IVP PRN (10:30)
[2020-02-16] MEDS ORDERED: Dextrose Gel 15 GM/37.5 ML TUBE PO PRN ×2 (11:13)
[2020-02-16] MEDS ORDERED: D5% in Water 1,000 ML IVC PRN (11:13)
[2020-02-16] MEDS: Insulin LISPRO 300 UNITS/3 ML VIAL SQ SCH ×2 (12:51→18:09)
[2020-02-16] MEDS: SODIUM ZIRCONIUM CYCLOSILICATE 5 GM POWD.PACK PO SCH (12:51)
[2020-02-16 14:29] LABS: Bilirubin,Urine Negative (Negative); Blood,Urine Small (Negative); Clarity,Urine Ex.Turbid (Clear); Color,Urine Yellow (Yellow); Glucose,Urine (UA) Normal (Normal); Ketones,Urine Negative (Negative); Leukocyte Esterase,Urine Large (Negative); Nitrite,Urine Negative (Negative); PH,Urine 5.5 pH Units (5.0-8.0); Protein,Urine 50 mg/dL (Neg-Trace); Specific Gravity,Urine 1.016 (1.010-1.025); Squamous Epithelial Cell,Urine Few per hpf (None-Few); Urobilinogen,Urine Normal (Normal); WBC,Urine TNTC per hpf (0-3)
[2020-02-16 14:32] LABS: Sodium, Urine 62.7 mEq/L
[2020-02-16 15:17] LABS: Basophils % 0.5 %; Eosinophils # 0.2 K/mcL (0.0-0.6); Eosinophils % 2.7 %; Hematocrit 22.7 % (35.3-44.9); Hemoglobin 6.8 g/dL (11.5-15.4); Immature Granulocytes % 0.3 % (0-4); Lymphocytes # 1.3 K/mcL (0.6-4.6); Mean Corpuscular Hemoglobin 29.4 pg (28.0-33.3); Mean Corpuscular Volume 98.3 fL (83.0-100.0); Mean Platelet Volume 9.3 fL (9.4-12.4); Monocytes # 0.4 K/mcL (0.0-1.3); Monocytes % 6.9 %; Neutrophils # 4.4 K/mcL (1.6-8.9); Platelet Count 181 K/mcL (140-400); Red Blood Count 2.31 M/mcL (3.82-4.97); Red Cell Distribution Width 22.1 % (11.5-14.5); Segmented Neutrophils % 68.6 %; White Blood Count 6.4 K/mcL (4.3-11.1)
[2020-02-16] MEDS ORDERED: 0.9 % Sodium Chloride 250 ML IVC SCH (15:30)
[2020-02-16 15:37] LABS: Calcium 8.7 mg/dL (8.6-10.3); Potassium 5.1 mEq/L (3.5-5.1)
[2020-02-16 15:39] LABS: % Iron Saturation 29 % (15-50); Iron 83 mcg/dL (50-170); Transferrin 208 mg/dL (203-362)
[2020-02-16] MEDS ORDERED: SODIUM CHLORIDE/NAHCO3/KCL/PEG 4,000 ML SOLN.RECON PO ONE (17:00)
[2020-02-16 19:04] LABS: Hematocrit 26.4 % (35.3-44.9)
[2020-02-16] MEDS: Famotidine 20 MG TABLET PO SCH (20:39)
[2020-02-17 01:14] LABS: Hematocrit 26.1 % (35.3-44.9)
[2020-02-17 03:28] LABS: Basophils # 0.1 K/mcL (0.0-0.2); Basophils % 0.9 %; Eosinophils # 0.3 K/mcL (0.0-0.6); Hematocrit 26.1 % (35.3-44.9); Hemoglobin 7.8 g/dL (11.5-15.4); Immature Granulocytes % 0.3 % (0-4); Lymphocytes # 1.6 K/mcL (0.6-4.6); Lymphocytes % 23.2 %; Mean Corpuscular HGB Conc 29.9 g/dL (31.6-35.5); Mean Corpuscular Hemoglobin 28.3 pg (28.0-33.3); Mean Corpuscular Volume 94.6 fL (83.0-100.0); Mean Platelet Volume 9.5 fL (9.4-12.4); Monocytes # 0.6 K/mcL (0.0-1.3); Monocytes % 8.6 %; Neutrophils # 4.4 K/mcL (1.6-8.9); Platelet Count 200 K/mcL (140-400); Red Blood Count 2.76 M/mcL (3.82-4.97)
[2020-02-17 03:46] LABS: Calcium 8.5 mg/dL (8.6-10.3); Potassium 4.5 mEq/L (3.5-5.1)
[2020-02-17 04:11] LABS: Folate 11.6 ng/mL (3.0-16.0)
[2020-02-17 07:19] LABS: Hematocrit 30.1 % (35.3-44.9); Hemoglobin 8.9 g/dL (11.5-15.4)
[2020-02-17] MEDS: Insulin LISPRO 300 UNITS/3 ML VIAL SQ SCH ×3 (09:07→17:54)
[2020-02-17] MEDS: SODIUM ZIRCONIUM CYCLOSILICATE 5 GM POWD.PACK PO SCH (09:27)
[2020-02-17] MEDS: Metoprolol XL (24 HR) Succ 50 MG TAB.ER.24H PO SCH (09:28)
[2020-02-17] MEDS: Sucralfate 1 GM TABLET PO SCH ×3 (09:28→17:54)
[2020-02-17] MEDS: Sacubitril/Valsartan 24/26 MG 1 TABLET PO SCH ×2 (09:28→21:51)
[2020-02-17] MEDS ORDERED: Dexamethasone 4 MG/ML VIAL ONE (10:14)
[2020-02-17] MEDS ORDERED: Lidocaine -MPF 4% 5 ML AMPUL ONE (10:14)
[2020-02-17] MEDS ORDERED: Ondansetron 4 MG/2 ML VIAL ONE (10:14)
[2020-02-17] MEDS ORDERED: *HR* FentaNYL (PF) 100 MCG/2 ML VIAL ONE ×2 (10:14→10:29)
[2020-02-17] MEDS ORDERED: *HR* Propofol 200 MG/20 ML VIAL IVP ONE (10:14)
[2020-02-17] MEDS ORDERED: *HR* Midazolam HCl 5 MG/5 ML VIAL IVP ONE (10:30)
[2020-02-17] MEDS: *HR* Dextrose 50 % in Water (Vial) 50 ML VIAL IVP PRN (10:35)
[2020-02-17] MEDS ORDERED: *HR* Dextrose 50 % in Water (Syg) 50 ML SYRINGE ONE (13:42)
[2020-02-17 19:11] LABS: Hematocrit 27.5 % (35.3-44.9); Hemoglobin 8.3 g/dL (11.5-15.4)
[2020-02-17] MEDS: Famotidine 20 MG TABLET PO SCH (21:52)
[2020-02-18 06:36] VITALS: BP 124/39
[2020-02-18 06:43] LABS: Basophils % 0.6 %; Eosinophils # 0.3 K/mcL (0.0-0.6); Eosinophils % 4.3 %; Hematocrit 27.6 % (35.3-44.9); Hemoglobin 8.4 g/dL (11.5-15.4); Immature Granulocytes % 0.3 % (0-4); Lymphocytes # 1.2 K/mcL (0.6-4.6); Lymphocytes % 18.9 %; Mean Corpuscular HGB Conc 30.4 g/dL (31.6-35.5); Mean Corpuscular Hemoglobin 29.5 pg (28.0-33.3); Mean Corpuscular Volume 96.8 fL (83.0-100.0); Mean Platelet Volume 9.3 fL (9.4-12.4); Monocytes # 0.6 K/mcL (0.0-1.3); Monocytes % 9.1 %; Neutrophils # 4.2 K/mcL (1.6-8.9); Platelet Count 201 K/mcL (140-400); Red Blood Count 2.85 M/mcL (3.82-4.97); Red Cell Distribution Width 21.5 % (11.5-14.5); Segmented Neutrophils % 66.8 %; White Blood Count 6.3 K/mcL (4.3-11.1)
[2020-02-18 07:04] LABS: Calcium 8.4 mg/dL (8.6-10.3); Magnesium 2.3 mg/dL (1.6-2.6); Potassium 4.5 mEq/L (3.5-5.1)
[2020-02-18] MEDS ORDERED: Cyanocobalamin (B-12) 1,000 MCG TABLET PO SCH (09:00)
[2020-02-18] MEDS ORDERED: Ferumoxytol 510 MG in 0.9 % Sodium Chloride 100 ML IVPB ONE (09:28)
[2020-02-18] MEDS: Sacubitril/Valsartan 24/26 MG 1 TABLET PO SCH (09:41)
[2020-02-18] MEDS: Metoprolol XL (24 HR) Succ 50 MG TAB.ER.24H PO SCH (09:41)
[2020-02-18] MEDS: Sucralfate 1 GM TABLET PO SCH ×2 (09:41→12:42)
[2020-02-18] MEDS: Insulin LISPRO 300 UNITS/3 ML VIAL SQ SCH ×2 (09:47→12:41)
== END 2020-02-18 14:11 ==
LOC: EMEROOARM 14:23 → 3ANU 14:23 → SUATTDRO 19:16 → 3ANU 21:15 → SUATTDRO 02-16 15:23
PROVIDERS: ADMIT Internal Medicine; ATTEND Internal Medicine

== ENCOUNTER 2020-07-29 13:52 | Inpatient (IN) ==
[2020-07-29 14:30] LABS: Basophils % 0.4 %; Eosinophils # 0.2 K/mcL (0.0-0.6); Eosinophils % 2.5 %; Hematocrit 30.8 % (35.3-44.9); Hemoglobin 9.2 g/dL (11.5-15.4); Immature Granulocytes % 0.3 % (0-4); Lymphocytes # 0.9 K/mcL (0.6-4.6); Lymphocytes % 12.7 %; Mean Corpuscular HGB Conc 29.9 g/dL (31.6-35.5); Mean Corpuscular Hemoglobin 28.1 pg (28.0-33.3); Mean Corpuscular Volume 94.2 fL (83.0-100.0); Mean Platelet Volume 8.9 fL (9.4-12.4); Monocytes # 0.6 K/mcL (0.0-1.3); Monocytes % 8.1 %; Neutrophils # 5.4 K/mcL (1.6-8.9); Platelet Count 173 K/mcL (140-400); Red Blood Count 3.27 M/mcL (3.82-4.97); Red Cell Distribution Width 17.1 % (11.5-14.5); White Blood Count 7.1 K/mcL (4.3-11.1)
[2020-07-29 14:38] LABS: INR 1.4; Prothrombin Time 15.6 Seconds (9.4-12.1)
[2020-07-29 14:48] LABS: Alanine Aminotransferase 6 Units/L (7-52); Albumin/Globulin Ratio 0.9 (1.1-2.2); Alkaline Phosphatase 44 Units/L (34-104); Aspartate Amino Transferase 10 Units/L (13-39); BUN/Creatinine Ratio 50 (6-26); Bilirubin,Total 0.3 mg/dL (0.3-1.0); Blood Urea Nitrogen 81 mg/dL (8-23); Calcium 8.8 mg/dL (8.6-10.3); Carbon Dioxide 27 mEq/L (23-29); Chloride 108 mEq/L (98-107); Globulin 3.4 g/dL (2.4-3.5); Glucose 118 mg/dL (70-105); Osmolality,Calculated 315 (280-300); Potassium 4.4 mEq/L (3.5-5.1); Sodium 140 mEq/L (136-145); Total Protein 6.4 g/dL (6.4-8.9); eGFR For African Americans 38 (> 60); eGFR For Non-African Americans 32 (> 60)
[2020-07-29 14:58] LABS: Troponin I < 0.03 ng/mL (< 0.04)
[2020-07-29] MEDS ORDERED: Furosemide 20 MG/2 ML VIAL IVP ONE (15:57)
[2020-07-29] MEDS ORDERED: Naloxone 0.4 MG/ML INJ IVP PRN (16:09)
[2020-07-29] MEDS ORDERED: Ipratropium/Albuterol Neb 3 ML IH PRN (16:15)
[2020-07-29] MEDS ORDERED: Dextrose Gel 15 GM/37.5 ML TUBE PO PRN ×2 (17:01)
[2020-07-29] MEDS ORDERED: D5% in Water 1,000 ML IVC PRN (17:01)
[2020-07-29] MEDS ORDERED: *HR* Dextrose 50 % in Water (Vial) 50 ML VIAL IVP PRN (17:01)
[2020-07-29] MEDS ORDERED: Sennosides 8.6 MG TABLET PO PRN (17:07)
[2020-07-29] MEDS: *HR* Heparin 5,000 UNIT/ML VIAL SQ SCH (23:00)
[2020-07-29] MEDS: Sacubitril/Valsartan 24/26 MG 1 TABLET PO SCH (23:01)
[2020-07-29] MEDS: Furosemide 40 MG/4 ML VIAL IVP SCH (23:01)
[2020-07-29] MEDS: Insulin DETEMIR 100 UNIT/ML X5UNITS SUBQ SCH (23:02)
[2020-07-30] MEDS: *HR* Heparin 5,000 UNIT/ML VIAL SQ SCH ×2 (04:42→16:59)
[2020-07-30] MEDS: Insulin LISPRO 300 UNITS/3 ML VIAL SUBQ SCH ×3 (07:21→17:03)
[2020-07-30 07:45] LABS: Basophils % 0.6 %; Eosinophils # 0.2 K/mcL (0.0-0.6); Eosinophils % 2.8 %; Hematocrit 29.5 % (35.3-44.9); Hemoglobin 8.8 g/dL (11.5-15.4); Immature Granulocytes % 0.3 % (0-4); Lymphocytes # 0.9 K/mcL (0.6-4.6); Lymphocytes % 13.7 %; Mean Corpuscular HGB Conc 29.8 g/dL (31.6-35.5); Mean Corpuscular Hemoglobin 28.7 pg (28.0-33.3); Mean Corpuscular Volume 96.1 fL (83.0-100.0); Mean Platelet Volume 8.9 fL (9.4-12.4); Monocytes # 0.6 K/mcL (0.0-1.3); Monocytes % 8.6 %; Platelet Count 168 K/mcL (140-400); Red Blood Count 3.07 M/mcL (3.82-4.97); Red Cell Distribution Width 17.1 % (11.5-14.5); White Blood Count 6.7 K/mcL (4.3-11.1)
[2020-07-30 08:07] LABS: Calcium 8.9 mg/dL (8.6-10.3); Magnesium 2.3 mg/dL (1.6-2.6); Phosphorous 3.7 mg/dL (2.7-4.5); Potassium 4.3 mEq/L (3.5-5.1)
[2020-07-30] MEDS: Ascorbic Acid 500 MG TABLET PO SCH (08:39)
[2020-07-30] MEDS: Furosemide 40 MG/4 ML VIAL IVP SCH ×2 (08:39→19:57)
[2020-07-30] MEDS: Multivit/Ca/Min/Fe/FA 1 TAB TABLET PO SCH (08:39)
[2020-07-30] MEDS: Metoprolol XL (24 HR) Succ 50 MG TAB.ER.24H PO SCH (08:39)
[2020-07-30] MEDS: Sucralfate 1 GM TABLET PO SCH ×3 (08:39→15:42)
[2020-07-30] MEDS: Sacubitril/Valsartan 24/26 MG 1 TABLET PO SCH ×2 (08:39→19:45)
[2020-07-30] MEDS: Insulin DETEMIR 100 UNIT/ML X5UNITS SUBQ SCH (08:52)
[2020-07-30] MEDS: *HR* HYDROcodone/Acet 5/325 mg TABLET PO PRN ×2 (11:32→17:53)
[2020-07-30] MEDS: Acetaminophen 325 MG TABLET PO PRN ×2 (16:59→23:18)
[2020-07-30] MEDS ORDERED: Insulin DETEMIR 100 UNIT/ML X5UNITS SUBQ SCH (21:00)
[2020-07-31] MEDS: PECTIN CITRUS PO SCH ×2 (05:40→09:28)
[2020-07-31] MEDS: ACIDOPHILUS PO SCH ×2 (05:40→09:28)
[2020-07-31] MEDS: *HR* Heparin 5,000 UNIT/ML VIAL SQ SCH ×2 (05:40→17:38)
[2020-07-31] MEDS: (Colestipol Hcl [Colestid] 1 GM) PO SCH ×2 (05:41→09:28)
[2020-07-31] MEDS: Insulin LISPRO 300 UNITS/3 ML VIAL SUBQ SCH ×3 (08:18→17:20)
[2020-07-31 08:25] LABS: Calcium 8.6 mg/dL (8.6-10.3); Potassium 4.5 mEq/L (3.5-5.1)
[2020-07-31 08:26] LABS: Magnesium 2.3 mg/dL (1.6-2.6); Phosphorous 3.8 mg/dL (2.7-4.5)
[2020-07-31] MEDS: Metoprolol XL (24 HR) Succ 50 MG TAB.ER.24H PO SCH (08:36)
[2020-07-31] MEDS ORDERED: Furosemide 20 MG/2 ML VIAL IVP SCH (09:00)
[2020-07-31] MEDS ORDERED: Furosemide 40 MG/4 ML VIAL IVP SCH (09:00)
[2020-07-31] MEDS: Ascorbic Acid 500 MG TABLET PO SCH (09:28)
[2020-07-31] MEDS: Sucralfate 1 GM TABLET PO SCH ×3 (09:28→17:19)
[2020-07-31] MEDS: Multivit/Ca/Min/Fe/FA 1 TAB TABLET PO SCH (09:28)
[2020-07-31] MEDS: Spironolactone 25 MG TABLET PO SCH (09:29)
[2020-07-31] MEDS: Sacubitril/Valsartan 24/26 MG 1 TABLET PO SCH ×2 (10:00→19:54)
[2020-07-31] MEDS: *HR* HYDROcodone/Acet 5/325 mg TABLET PO PRN ×2 (15:14→23:13)
[2020-07-31] MEDS: Acetaminophen 325 MG TABLET PO PRN (19:48)
[2020-07-31] MEDS ORDERED: Insulin DETEMIR 100 UNIT/ML X5UNITS SUBQ SCH (21:00)
[2020-08-01] MEDS: *HR* Heparin 5,000 UNIT/ML VIAL SQ SCH (05:45)
[2020-08-01 06:24] LABS: Calcium 8.5 mg/dL (8.6-10.3); Magnesium 2.1 mg/dL (1.6-2.6); Phosphorous 3.3 mg/dL (2.7-4.5); Potassium 4.6 mEq/L (3.5-5.1)
[2020-08-01] MEDS: Insulin LISPRO 300 UNITS/3 ML VIAL SUBQ SCH ×2 (07:14→11:39)
[2020-08-01] MEDS: Sacubitril/Valsartan 24/26 MG 1 TABLET PO SCH (08:03)
[2020-08-01] MEDS: Ascorbic Acid 500 MG TABLET PO SCH (08:03)
[2020-08-01] MEDS: Sucralfate 1 GM TABLET PO SCH ×2 (08:03→11:44)
[2020-08-01] MEDS: Spironolactone 25 MG TABLET PO SCH (08:03)
[2020-08-01] MEDS: Multivit/Ca/Min/Fe/FA 1 TAB TABLET PO SCH (08:03)
[2020-08-01] MEDS: Metoprolol XL (24 HR) Succ 50 MG TAB.ER.24H PO SCH (08:03)
[2020-08-01] MEDS ORDERED: Lactobacillus 1 EACH CAP.SPRINK PO SCH (09:00)
[2020-08-01] MEDS: Acetaminophen 325 MG TABLET PO PRN (09:31)
[2020-08-01 11:08] VITALS: BP 90/53
== END 2020-08-01 13:22 | disposition home health service (06) | DRG 291 ==
LOC: EMEROOARM 13:52 → 2ANU 13:52 → SUATTDRO 16:57 → 2ANU 19:47
PROVIDERS: ADMIT Internal Medicine; ATTEND Internal Medicine

== ENCOUNTER 2020-10-04 13:31 | Inpatient (IN) ==
[2020-10-04 14:30] LABS: Basophils % 0.4 %; Eosinophils # 0.2 K/mcL (0.0-0.6); Eosinophils % 3.2 %; Hematocrit 33.2 % (35.3-44.9); Hemoglobin 9.8 g/dL (11.5-15.4); Immature Granulocytes % 0.3 % (0-4); Lymphocytes # 0.8 K/mcL (0.6-4.6); Lymphocytes % 12.1 %; Mean Corpuscular HGB Conc 29.5 g/dL (31.6-35.5); Mean Corpuscular Hemoglobin 28.4 pg (28.0-33.3); Mean Corpuscular Volume 96.2 fL (83.0-100.0); Mean Platelet Volume 9.5 fL (9.4-12.4); Monocytes # 0.7 K/mcL (0.0-1.3); Monocytes % 10.1 %; Platelet Count 163 K/mcL (140-400); Red Blood Count 3.45 M/mcL (3.82-4.97); Red Cell Distribution Width 17.2 % (11.5-14.5); Segmented Neutrophils % 73.9 %; White Blood Count 6.8 K/mcL (4.3-11.1)
[2020-10-04 14:37] LABS: INR 1.4
[2020-10-04 14:39] LABS: Activated Partial Thrombo Time 32.1 Seconds (26.0-36.0)
[2020-10-04 14:49] LABS: Albumin 2.8 g/dL (3.5-5.7); Albumin/Globulin Ratio 0.8 (1.1-2.2); Bilirubin,Total 0.3 mg/dL (0.3-1.0); Calcium 8.6 mg/dL (8.6-10.3); Globulin 3.4 g/dL (2.4-3.5); Potassium 3.5 mEq/L (3.5-5.1); Total Protein 6.2 g/dL (6.4-8.9)
[2020-10-04 14:50] LABS: Troponin I 0.06 ng/mL (< 0.04)
[2020-10-04 15:20] LABS: Bacteria,Urine Few per hpf (None-Few); Bilirubin,Urine Negative (Negative); Blood,Urine Moderate (Negative); Clarity,Urine Clear (Clear); Color,Urine Light-Yellow (Yellow); Glucose,Urine (UA) Normal (Normal); Ketones,Urine Negative (Negative); Leukocyte Esterase,Urine Trace (Negative); Nitrite,Urine Negative (Negative); PH,Urine 5.5 pH Units (5.0-8.0); Protein,Urine 30 mg/dL (Neg-Trace); Specific Gravity,Urine 1.017 (1.010-1.025); Squamous Epithelial Cell,Urine Few per hpf (None-Few); Urobilinogen,Urine Normal (Normal); WBC,Urine 0-3 per hpf (0-3)
[2020-10-04] MEDS ORDERED: Naloxone 0.4 MG/ML INJ IVP PRN (16:25)
[2020-10-04] MEDS ORDERED: Ondansetron 4 MG/2 ML VIAL IVP PRN (16:25)
[2020-10-04] MEDS ORDERED: Furosemide 40 MG/4 ML VIAL IVP ONE (18:19)
[2020-10-04] MEDS: Famotidine 20 MG TABLET PO SCH (21:40)
[2020-10-04] MEDS: Sacubitril/Valsartan 24/26 MG 1 TABLET PO SCH (21:41)
[2020-10-04] MEDS: Melatonin 3 MG TABLET PO SCH (21:41)
[2020-10-05] MEDS ORDERED: Albumin 25% 25gram/100mL 25 GM/100 ML IV.SOLN IVPB SCH (00:01)
[2020-10-05] MEDS: Acetaminophen 325 MG TABLET PO PRN ×3 (04:40→22:52)
[2020-10-05 05:06] LABS: Hematocrit 30.8 % (35.3-44.9); Hemoglobin 9.4 g/dL (11.5-15.4); Mean Corpuscular HGB Conc 30.5 g/dL (31.6-35.5); Mean Corpuscular Hemoglobin 28.1 pg (28.0-33.3); Mean Corpuscular Volume 92.2 fL (83.0-100.0); Mean Platelet Volume 9.3 fL (9.4-12.4); Platelet Count 155 K/mcL (140-400); Red Blood Count 3.34 M/mcL (3.82-4.97); Red Cell Distribution Width 17.2 % (11.5-14.5); White Blood Count 5.9 K/mcL (4.3-11.1)
[2020-10-05 05:19] LABS: INR 1.4; Prothrombin Time 15.9 Seconds (9.4-12.1)
[2020-10-05 05:21] LABS: Activated Partial Thrombo Time 31.9 Seconds (26.0-36.0)
[2020-10-05 05:29] LABS: Calcium 8.5 mg/dL (8.6-10.3); Magnesium 1.9 mg/dL (1.6-2.6); Potassium 3.5 mEq/L (3.5-5.1)
[2020-10-05] MEDS: Furosemide 40 MG/4 ML VIAL IVP SCH ×2 (09:00→17:38)
[2020-10-05] MEDS: Sacubitril/Valsartan 24/26 MG 1 TABLET PO SCH ×2 (09:00→21:43)
[2020-10-05] MEDS: Metoprolol XL (24 HR) Succ 50 MG TAB.ER.24H PO SCH (09:00)
[2020-10-05] MEDS: Albumin 25% 25gram/100mL 25 GM/100 ML IV.SOLN IVPB SCH ×4 (12:03→16:37)
[2020-10-05] MEDS: Insulin LISPRO 300 UNITS/3 ML VIAL SUBQ SCH (17:38)
[2020-10-05] MEDS ORDERED: Insulin LISPRO 300 UNITS/3 ML VIAL SUBQ SCH (21:00)
[2020-10-05] MEDS: Famotidine 20 MG TABLET PO SCH (21:38)
[2020-10-05] MEDS: Melatonin 3 MG TABLET PO SCH (21:39)
[2020-10-06] MEDS: Insulin LISPRO 300 UNITS/3 ML VIAL SUBQ SCH ×3 (07:46→17:49)
[2020-10-06] MEDS: Acetaminophen 325 MG TABLET PO PRN ×2 (08:35→16:04)
[2020-10-06] MEDS: Metoprolol XL (24 HR) Succ 50 MG TAB.ER.24H PO SCH (08:36)
[2020-10-06] MEDS: Sacubitril/Valsartan 24/26 MG 1 TABLET PO SCH (08:36)
[2020-10-06] MEDS: Furosemide 40 MG/4 ML VIAL IVP SCH ×2 (08:36→15:15)
[2020-10-06 11:27] VITALS: BP 109/66
== END 2020-10-06 18:08 | disposition home health service (06) | DRG 291 ==
LOC: EMEROOARM 13:31 → 2ANU 13:31 → SUATTDRO 17:09 → 2ANU 18:21
PROVIDERS: ADMIT Family Medicine; ATTEND Internal Medicine

== ENCOUNTER 2020-11-14 18:46 | Inpatient (IN) ==
[2020-11-14 20:56] LABS: Basophils % 0.4 %; Eosinophils # 0.2 K/mcL (0.0-0.6); Eosinophils % 2.7 %; Hematocrit 34.1 % (35.3-44.9); Hemoglobin 10.3 g/dL (11.5-15.4); Immature Granulocytes % 0.3 % (0-4); Lymphocytes # 0.9 K/mcL (0.6-4.6); Lymphocytes % 11.9 %; Mean Corpuscular HGB Conc 30.2 g/dL (31.6-35.5); Mean Corpuscular Hemoglobin 28.5 pg (28.0-33.3); Mean Corpuscular Volume 94.2 fL (83.0-100.0); Mean Platelet Volume 9.6 fL (9.4-12.4); Monocytes # 0.7 K/mcL (0.0-1.3); Monocytes % 9.1 %; Neutrophils # 5.4 K/mcL (1.6-8.9); Platelet Count 171 K/mcL (140-400); Red Blood Count 3.62 M/mcL (3.82-4.97); Red Cell Distribution Width 18.4 % (11.5-14.5); Segmented Neutrophils % 75.6 %; White Blood Count 7.2 K/mcL (4.3-11.1)
[2020-11-14 21:05] LABS: INR 1.3; Prothrombin Time 15.4 Seconds (9.4-12.1)
[2020-11-14 21:08] LABS: Activated Partial Thrombo Time 30.3 Seconds (26.0-36.0)
[2020-11-14 21:22] LABS: Albumin 3.1 g/dL (3.5-5.7); Bilirubin,Direct 0.1 mg/dL (0.0-0.2); Bilirubin,Indirect 0.3 mg/dL (0.0-1.0); Bilirubin,Total 0.4 mg/dL (0.3-1.0); Calcium 9.1 mg/dL (8.6-10.3); Globulin 3.2 g/dL (2.4-3.5); Potassium 3.8 mEq/L (3.5-5.1); Total Protein 6.3 g/dL (6.4-8.9); Troponin I 0.04 ng/mL (< 0.04)
[2020-11-14 22:04] LABS: Bilirubin,Urine Negative (Negative); Blood,Urine Large (Negative); Clarity,Urine Clear (Clear); Color,Urine Light-Yellow (Yellow); Glucose,Urine (UA) Normal (Normal); Ketones,Urine Negative (Negative); Leukocyte Esterase,Urine Trace (Negative); Nitrite,Urine Negative (Negative); PH,Urine 5.5 pH Units (5.0-8.0); Protein,Urine Trace mg/dL (Neg-Trace); RBC,Urine 30-50 per hpf (0-3); Specific Gravity,Urine 1.016 (1.010-1.025); Squamous Epithelial Cell,Urine Few per hpf (None-Few); Urobilinogen,Urine Normal (Normal)
[2020-11-14] MEDS ORDERED: Furosemide 40 MG/4 ML VIAL IVP ONE (23:50)
[2020-11-15] MEDS ORDERED: Naloxone 0.4 MG/ML INJ IVP PRN (03:26)
[2020-11-15] MEDS ORDERED: Ondansetron 4 MG/2 ML VIAL IVP PRN (03:37)
[2020-11-15] MEDS ORDERED: Mag Hydrox/Al Hydrox/Simeth 30 ML UDC PO PRN (08:01)
[2020-11-15 09:00] LABS: Hematocrit 33.1 % (35.3-44.9); Hemoglobin 10.1 g/dL (11.5-15.4); Mean Corpuscular HGB Conc 30.5 g/dL (31.6-35.5); Mean Corpuscular Hemoglobin 28.3 pg (28.0-33.3); Mean Corpuscular Volume 92.7 fL (83.0-100.0); Mean Platelet Volume 9.3 fL (9.4-12.4); Platelet Count 164 K/mcL (140-400); Red Blood Count 3.57 M/mcL (3.82-4.97); Red Cell Distribution Width 18.3 % (11.5-14.5)
[2020-11-15 09:20] LABS: Potassium 3.8 mEq/L (3.5-5.1)
[2020-11-15] MEDS ORDERED: Perflutren Lipid Microsphere 1.3 ML in 0.9 % Sodium Chloride 8.7 ML IVP PRN (10:26)
[2020-11-15] MEDS: Furosemide 40 MG TABLET PO SCH (10:44)
[2020-11-15] MEDS: cefTRIAXone 1,000 MG in Water for inj. (sterile) 10 ML IVP SCH (10:44)
[2020-11-15 16:20] LABS: Total Protein,Peritoneal Fluid 3.2 g/dL
[2020-11-15 16:22] LABS: Appearance of Peritoneal Fl CLEAR (Clear)
[2020-11-15 16:25] LABS: RBC,Peritoneal Fluid < 2000 RBC/mcL
[2020-11-15 17:42] LABS: Basophils,Peritoneal Fluid 0 %; Eosinophils,Peritoneal Fluid 0 %
[2020-11-15] MEDS ORDERED: Famotidine 20 MG TABLET PO SCH (21:00)
[2020-11-15] MEDS: (Colestipol Hcl [Colestid] 1 GM Tablet) PO SCH (21:34)
[2020-11-15] MEDS: Lactobacillus 1 EACH CAP.SPRINK PO SCH (21:51)
[2020-11-15] MEDS: Sacubitril/Valsartan 24/26 MG 1 TABLET PO SCH (21:52)
[2020-11-16] MEDS ORDERED: *HR* Heparin 5,000 UNIT/ML VIAL SQ SCH (06:00)
[2020-11-16] MEDS: cefTRIAXone 1,000 MG in Water for inj. (sterile) 10 ML IVP SCH (09:05)
[2020-11-16] MEDS: Cyanocobalamin (B-12) 1,000 MCG TABLET PO SCH (09:06)
[2020-11-16] MEDS: Furosemide 40 MG TABLET PO SCH (09:06)
[2020-11-16] MEDS: Sacubitril/Valsartan 24/26 MG 1 TABLET PO SCH ×2 (09:06→20:27)
[2020-11-16] MEDS: Lactobacillus 1 EACH CAP.SPRINK PO SCH ×2 (09:06→20:27)
[2020-11-16] MEDS: Metoprolol XL (24 HR) Succ 50 MG TAB.ER.24H PO SCH (09:07)
[2020-11-16] MEDS: Ascorbic Acid 500 MG TABLET PO SCH (09:08)
[2020-11-16] MEDS ORDERED: Albumin 25% 25gram/100mL 25 GM/100 ML IV.SOLN IVPB ONE ×2 (11:38→13:30)
[2020-11-16] MEDS ORDERED: *HR* Heparin 5,000 UNIT/ML VIAL IVP PRN ×2 (16:10)
[2020-11-16] MEDS ORDERED: D5% in Water 1,000 ML IVC PRN (16:34)
[2020-11-16] MEDS ORDERED: Dextrose Gel 15 GM/37.5 ML TUBE PO PRN ×2 (16:34)
[2020-11-16] MEDS ORDERED: *HR* Dextrose 50 % in Water (Vial) 50 ML VIAL IVP PRN (16:34)
[2020-11-16 17:25] LABS: Hemoglobin 9.8 g/dL (11.5-15.4); Mean Corpuscular HGB Conc 29.7 g/dL (31.6-35.5); Mean Corpuscular Hemoglobin 27.8 pg (28.0-33.3); Mean Corpuscular Volume 93.5 fL (83.0-100.0); Mean Platelet Volume 9.4 fL (9.4-12.4); Platelet Count 134 K/mcL (140-400); Red Blood Count 3.53 M/mcL (3.82-4.97); Red Cell Distribution Width 18.4 % (11.5-14.5); White Blood Count 6.2 K/mcL (4.3-11.1)
[2020-11-16 17:33] LABS: Heparin anti-factor XA UFH < 0.04 IU/mL (0.30-0.70); INR 1.4; Prothrombin Time 15.8 Seconds (9.4-12.1)
[2020-11-16] MEDS: Heparin 25,000UNIT/250ML 1/2NS 25,000 UNIT/250 ML IV.SOLN IVC SCH (17:41)
[2020-11-16] MEDS: Famotidine 20 MG TABLET PO SCH (20:27)
[2020-11-16] MEDS: Melatonin 3 MG TABLET PO PRN (20:28)
[2020-11-16] MEDS: (Colestipol Hcl [Colestid] 1 GM Tablet) PO SCH (22:05)
[2020-11-17 00:31] LABS: Basophils % 0.3 %; Eosinophils # 0.2 K/mcL (0.0-0.6); Eosinophils % 3.1 %; Hematocrit 31.6 % (35.3-44.9); Hemoglobin 9.6 g/dL (11.5-15.4); Immature Granulocytes % 0.3 % (0-4); Lymphocytes # 0.7 K/mcL (0.6-4.6); Lymphocytes % 10.7 %; Mean Corpuscular HGB Conc 30.4 g/dL (31.6-35.5); Mean Corpuscular Hemoglobin 28.2 pg (28.0-33.3); Mean Corpuscular Volume 92.7 fL (83.0-100.0); Mean Platelet Volume 9.4 fL (9.4-12.4); Monocytes # 0.6 K/mcL (0.0-1.3); Monocytes % 9.5 %; Neutrophils # 4.9 K/mcL (1.6-8.9); Platelet Count 142 K/mcL (140-400); Red Blood Count 3.41 M/mcL (3.82-4.97); Red Cell Distribution Width 18.3 % (11.5-14.5); Segmented Neutrophils % 76.1 %; White Blood Count 6.5 K/mcL (4.3-11.1)
[2020-11-17 00:46] LABS: Calcium 8.2 mg/dL (8.6-10.3); Magnesium 1.8 mg/dL (1.6-2.6); Potassium 3.8 mEq/L (3.5-5.1)
[2020-11-17] MEDS: Insulin LISPRO 300 UNITS/3 ML VIAL SUBQ SCH ×3 (08:04→16:08)
[2020-11-17] MEDS: Furosemide 40 MG TABLET PO SCH (08:06)
[2020-11-17] MEDS: Ascorbic Acid 500 MG TABLET PO SCH (08:07)
[2020-11-17] MEDS: Metoprolol XL (24 HR) Succ 50 MG TAB.ER.24H PO SCH (08:07)
[2020-11-17] MEDS: Cyanocobalamin (B-12) 1,000 MCG TABLET PO SCH (08:07)
[2020-11-17] MEDS: Lactobacillus 1 EACH CAP.SPRINK PO SCH ×2 (08:07→20:28)
[2020-11-17] MEDS: Sacubitril/Valsartan 24/26 MG 1 TABLET PO SCH ×2 (08:07→20:28)
[2020-11-17] MEDS: cefTRIAXone 1,000 MG in Water for inj. (sterile) 10 ML IVP SCH (08:08)
[2020-11-17] MEDS: Heparin 25,000UNIT/250ML 1/2NS 25,000 UNIT/250 ML IV.SOLN IVC SCH (15:43)
[2020-11-17] MEDS: Famotidine 20 MG TABLET PO SCH (20:28)
[2020-11-17] MEDS: Melatonin 3 MG TABLET PO PRN (20:28)
[2020-11-18 02:05] LABS: Basophils % 0.3 %; Eosinophils # 0.2 K/mcL (0.0-0.6); Eosinophils % 3.1 %; Hematocrit 33.6 % (35.3-44.9); Hemoglobin 10.2 g/dL (11.5-15.4); Immature Granulocytes % 0.3 % (0-4); Lymphocytes # 0.7 K/mcL (0.6-4.6); Lymphocytes % 10.2 %; Mean Corpuscular HGB Conc 30.4 g/dL (31.6-35.5); Mean Corpuscular Hemoglobin 28.7 pg (28.0-33.3); Mean Corpuscular Volume 94.4 fL (83.0-100.0); Mean Platelet Volume 9.4 fL (9.4-12.4); Monocytes # 0.7 K/mcL (0.0-1.3); Monocytes % 10.2 %; Neutrophils # 4.9 K/mcL (1.6-8.9); Platelet Count 149 K/mcL (140-400); Red Blood Count 3.56 M/mcL (3.82-4.97); Red Cell Distribution Width 18.1 % (11.5-14.5); Segmented Neutrophils % 75.9 %; White Blood Count 6.5 K/mcL (4.3-11.1)
[2020-11-18 02:27] LABS: Calcium 8.2 mg/dL (8.6-10.3); Potassium 3.8 mEq/L (3.5-5.1)
[2020-11-18] MEDS: Insulin LISPRO 300 UNITS/3 ML VIAL SUBQ SCH ×3 (08:26→16:09)
[2020-11-18] MEDS: Metoprolol XL (24 HR) Succ 50 MG TAB.ER.24H PO SCH (09:30)
[2020-11-18] MEDS: Furosemide 40 MG TABLET PO SCH (09:30)
[2020-11-18] MEDS: Cyanocobalamin (B-12) 1,000 MCG TABLET PO SCH (09:31)
[2020-11-18] MEDS: Sacubitril/Valsartan 24/26 MG 1 TABLET PO SCH ×2 (09:31→21:44)
[2020-11-18] MEDS: Aspirin Enteric Coated 325 MG Tablet PO SCH (09:31)
[2020-11-18] MEDS: Ascorbic Acid 500 MG TABLET PO SCH (09:31)
[2020-11-18] MEDS: Lactobacillus 1 EACH CAP.SPRINK PO SCH ×2 (09:31→21:44)
[2020-11-18 16:45] LABS: Fluid Source for Albumin ASCITES FLUID
[2020-11-18] MEDS: Melatonin 3 MG TABLET PO PRN (21:42)
[2020-11-18] MEDS: Famotidine 20 MG TABLET PO SCH (21:43)
[2020-11-18] MEDS: *HR* Heparin 5,000 UNIT/ML VIAL SQ SCH (21:44)
[2020-11-19] MEDS: *HR* Heparin 5,000 UNIT/ML VIAL SQ SCH ×3 (05:41→20:14)
[2020-11-19 07:35] LABS: Basophils % 0.4 %; Eosinophils # 0.2 K/mcL (0.0-0.6); Eosinophils % 3.3 %; Hematocrit 32.7 % (35.3-44.9); Hemoglobin 9.8 g/dL (11.5-15.4); Immature Granulocytes % 0.4 % (0-4); Lymphocytes # 0.6 K/mcL (0.6-4.6); Lymphocytes % 11.3 %; Mean Corpuscular Volume 93.4 fL (83.0-100.0); Mean Platelet Volume 9.6 fL (9.4-12.4); Monocytes # 0.6 K/mcL (0.0-1.3); Neutrophils # 4.1 K/mcL (1.6-8.9); Platelet Count 151 K/mcL (140-400); Red Cell Distribution Width 18.4 % (11.5-14.5); Segmented Neutrophils % 74.6 %; White Blood Count 5.5 K/mcL (4.3-11.1)
[2020-11-19 07:43] LABS: Calcium 8.4 mg/dL (8.6-10.3)
[2020-11-19] MEDS: Insulin LISPRO 300 UNITS/3 ML VIAL SUBQ SCH ×3 (07:52→17:46)
[2020-11-19] MEDS: Lactobacillus 1 EACH CAP.SPRINK PO SCH ×2 (08:05→20:13)
[2020-11-19] MEDS: Metoprolol XL (24 HR) Succ 50 MG TAB.ER.24H PO SCH (08:05)
[2020-11-19] MEDS: Ascorbic Acid 500 MG TABLET PO SCH (08:05)
[2020-11-19] MEDS: Aspirin Enteric Coated 325 MG Tablet PO SCH (08:05)
[2020-11-19] MEDS: Furosemide 40 MG TABLET PO SCH (08:05)
[2020-11-19] MEDS: Sacubitril/Valsartan 24/26 MG 1 TABLET PO SCH ×2 (08:05→20:14)
[2020-11-19] MEDS: Cyanocobalamin (B-12) 1,000 MCG TABLET PO SCH (08:06)
[2020-11-19] MEDS ORDERED: Acetaminophen IV 1,000 MG/100 ML BAG IVPB ONE (12:36)
[2020-11-19] MEDS: Doxycycline 100 MG CAPSULE PO SCH ×2 (13:23→20:13)
[2020-11-19] MEDS: Melatonin 3 MG TABLET PO PRN (20:13)
[2020-11-19] MEDS: Famotidine 20 MG TABLET PO SCH (20:14)
[2020-11-20] MEDS: *HR* Heparin 5,000 UNIT/ML VIAL SQ SCH (05:31)
[2020-11-20 08:31] VITALS: BP 124/66
[2020-11-20] MEDS: Insulin LISPRO 300 UNITS/3 ML VIAL SUBQ SCH (08:43)
[2020-11-20] MEDS: Cyanocobalamin (B-12) 1,000 MCG TABLET PO SCH (10:03)
[2020-11-20] MEDS: Aspirin Enteric Coated 325 MG Tablet PO SCH (10:03)
[2020-11-20] MEDS: Ascorbic Acid 500 MG TABLET PO SCH (10:03)
[2020-11-20] MEDS: Lactobacillus 1 EACH CAP.SPRINK PO SCH (10:03)
[2020-11-20] MEDS: Metoprolol XL (24 HR) Succ 50 MG TAB.ER.24H PO SCH (10:03)
[2020-11-20] MEDS: Sacubitril/Valsartan 24/26 MG 1 TABLET PO SCH (10:03)
[2020-11-20] MEDS: Furosemide 40 MG TABLET PO SCH (10:03)
[2020-11-20] MEDS: Doxycycline 100 MG CAPSULE PO SCH (10:04)
== END 2020-11-20 11:35 | disposition hospice, home (50) | DRG 432 ==
LOC: CDU 18:46 → EMEROOARM 18:46 → SUATTDRO 11-15 02:15 → CDU 11-15 02:58 → 3BNU 11-16 11:24
PROVIDERS: ADMIT Family Medicine; ATTEND Internal Medicine